=== PATIENT | female | born 1930 | race Caucasian/White ===

== ENCOUNTER 2016-11-06 11:20 | Inpatient (IN) | payer MEDICARE, OTHER ==
[~2016-11-06] VITALS: Ht 167.6 cm; Wt 48.2 kg
[2016-11-06] VITALS (10 sets, daily range): BP systolic 113–200; BP diastolic 62–118; PULSE 68–122; RESP 15–22; TEMP 97.1–99.5; O2SAT 96–100; Ht 167.6 cm; Wt 48.2 kg
--- NOTE | 2016-11-06 11:20 | NUR ---
ADMISSION PT ADMITTED TO ROOM 112 PER CART. TRANSFERRED USING SLIDE BOARD. DIRECT ADMIT FROM [facility]. PT GIAN, HX OF DEMENTIA. IV RIGHT FOREARM. BED ALARM ON. CALL LIGHT WITHIN REACH. WILL CONTINUE TO MONITOR.
--- OUTSIDE RECORDS SUMMARY | 2016-11-06 11:52 | XMS REPORT ---
Author Author [facility]. Organization [facility] Address [address] [place] [address] Phone [phone] Care Team Providers Care Senior Accounts Payable Clerk Name Role Phone SARA ALVARADO MD, PP Unavailable SARA ALVARADO MD, PP Unavailable SARA ALVARADO MD, PP Unavailable Summary purpose CCDA Sent to [facility] Chief Complaint and Reason for Visit No authorized Reason for Visit (Admitting Diagnosis) is available for this visit. Problem list Condition Status Certainty Chronicity Onset .Syncope; Near Syncope Discharged Encounters The following conditions tracked for encounter diagnoses were recorded for this visit: Finding or Diagnosis Status Certainty Chronicity Onset Cardiovascular - Actual/potential for altered Discharged .Syncope; Near Syncope Discharged Medications No medications recorded for this patient visit Allergies, adverse reactions, alerts Allergen Category Ingredient Status Reaction Severity Onset ferrous sulfate Drug ferrous sulfate Active abdominal pain Evista Drug Evista Active abdominal cramps Evista Drug Raloxifene Active abdominal cramps Miacalcin Drug Miacalcin Active muscle cramps Miacalcin Drug Calcitonin Active muscle cramps Mephyton Drug Mephyton Active pain Mephyton Drug phytonadione Active pain Immunizations No immunizations recorded for this patient visit Relevant diagnostic tests and/or laboratory data RESULTS CBC [id number]:25:00 Result Normal Range Units WBC 10.14 4.8-10.8 x103/mm3 Neutrophil % H 75.2 50-70 % Lymph % L 15.1 20-50 % Nye % H 9.1 1.0-9.0 % Eosinophil % 0.4 0-4 % Basophil % 0.2 0-2 % Neutrophil # H 7.63 3.0-7.0 x103/mm3 Lymph # 1.53 1.0-4.0 x103/mm3 Nye # H 0.92 0.0-0.8 x103/mm3 Eosinophil # 0.04 0-0.5 x103/mm3 Basophil # 0.02 0-0.2 x103/mm3 RBC L 4.19 4.20-5.40 x103/mm3 HGB 13.7 12.0-16.0 g/dl HCT 41.2 37.0-47.0 % MCV 98.3 81-99 FL MCH H 32.7 27.0-31.0 pg MCHC 33.3 32.0-36.0 g/dl RDW 13.0 12-15 % Platelet 185 150-400 x103/mm3 MPV H 10.1 6.0-10.0 FL Chemistry Group [id number]:55:00 Result Normal Range Units Digoxin HC 3.3 0.8-2.0 ng/ml CALLED TO BRIAN 10/19/15 07:40 [facility] [place] :25:00 Result Normal Range Units Sodium 135 134-145 mmol/L Potassium 4.8 3.6-5.0 mmol/L Chloride L 97 98-107 mmol/L CO2 H 31 22-30 mmol/L Glucose H 145 75-110 mg/dl BUN H 25 9-20 mg/dl Creatinine 1.00 0.8-1.7 mg/dl Total Protein 6.3 6.3-8.2 g/dl Albumin 3.7 3.5-5.0 g/dl Calcium 9.0 8.4-10.2 mg/dl Alk Phos 60 38-126 U/L AST 26 14-36 U/L ALT 25 11-66 U/L T Bili .7 0.2-1.3 mg/dl A/G Ratio 1.4 Ratio Digoxin HC 3.9 0.8-2.0 ng/ml GIVEN TO MAYKEL AT 10:34 10-18-15 BY BOOGIE [facility] :25:00 Result Normal Range Units TSH 4.56 0.50-6.00 uIU/mL History of procedures No procedures recorded for this patient visit. Functional status Functional Status Finding Observation Time Dexterity Right-handed :18 Weight Bearing Statu Full 28-72-004477:05 Transferring/Ambulat Needs Assistance 31-90-129567:39 Bathing Independent :18 Dressing Independent 98-10-332099:18 Eating Independent 31-12-511802:18 Drinking Independent 68-53-963219:18 Toileting Needs Assistance :18 Able to Turn Self in Independent :18 Cognitive Status Finding Observation Time Level of Consciousne Alert :32 Oriented to Person Yes :[address] Yes :32 Oriented to Time Yes :32 Vital signs Type Value Date Respirations 16 :10 Pulse 93 :10 O2 Saturation 98% :10 Systolic Blood Press 114mm/HG :49 Diastolic Blood Pres 67mm/HG :49 Temperature (Fahr) 97.8Degrees :10 Height 66in :07 Weight 106.7LB :07 Social history Type Value Smoking Status NEVER SMOKER Treatment Plan No treatment plan text is available for this visit. Hospital discharge instructions Diagnosis near syncope Diet Push fluids- aim for a minimum of 2 quarts Activity Level No restrictions - avoid climbing, quick position changes for two weeks Personal Items Retur none received Med Dispensed by Pro none received Flu Vaccine Given Current/Not Needed Follow up with Dr. Kaur Appointment Date and 10-20-15 at [address] Alvarado Appointment Date and 10-26-15 at 0830
--- OUTSIDE RECORDS SUMMARY | 2016-11-06 11:52 | XMS REPORT | Continuity of Care Document ---
Author Author [facility] Organization [facility] Address Unknown Phone Unavailable Allergies Active Description Code Type Severity Reaction Onset Reported/Identified Relationship to Patient Clinical Status Yes amiodarone Drug Allergy N/A N/A Erroneous Yes Calcitonin Drug Allergy N/A N/A Confirmed or Verified Yes ferrous sulfate Drug Allergy N/A N/A Confirmed or Verified Yes phytonadione Drug Allergy N/A N/A Confirmed or Verified Yes Raloxifene Drug Allergy N/A N/A Confirmed or Verified Yes No Known Allergies [id number] Drug Allergy N/A N/A 05/28/2013 Confirmed but inactive Yes amiodarone Drug Allergy N/A Rash 06/08/2013 Yes Evista 5199 Drug Allergy N/A abdominal cramps 06/08/2013 Yes ferrous sulfate 840 Drug Allergy N/A abdominal pain 06/08/2013 Yes Mephyton 8110 Drug Allergy N/A pain 06/08/2013 Yes Miacalcin 68554 Drug Allergy N/A muscle cramps 06/08/2013 Medications Problems Date Dx Coded Attending Type Code Diagnosis Diagnosed By 07/03/2010 D 285.9 ANEMIA NOS 07/03/2010 D 427.31 ATRIAL FIBRILLATION 07/03/2010 D 428.0 CHF NOS 07/03/2010 D 486 PNEUMONIA, ORGANISM NOS 07/03/2010 D 511.9 PLEURAL EFFUSION NOS 07/03/2010 D 530.81 ESOPHAGEAL REFLUX 07/03/2010 D 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 07/03/2010 D 808.8 PELVIC FRACTURE NOS-CLOS 07/03/2010 D 813.83 FX RADIUS W ULNA NOS-CL 07/03/2010 D E884.9 FALL-1 LEVEL TO OTH NEC 07/03/2010 D V45.89 POSTSURGICAL STATUS NEC 07/03/2010 D V54.89 ORTHOPEDIC AFTERCARE NEC 07/03/2010 D V57.1 PHYSICAL THERAPY NEC 08/02/2010 D 285.9 ANEMIA NOS 08/02/2010 D 428.0 CHF NOS 12/03/2010 D 427.31 ATRIAL FIBRILLATION 04/06/2011 D 285.9 ANEMIA NOS 04/06/2011 D 427.31 ATRIAL FIBRILLATION 04/06/2011 D 427.32 ATRIAL FLUTTER 04/06/2011 D 428.0 CHF NOS 04/06/2011 D 428.20 SYSTOLIC HF NOS 04/06/2011 D 530.81 ESOPHAGEAL REFLUX 04/06/2011 D 564.09 CONSTIPATION NEC 04/06/2011 D 707.03 PRESSURE ULCER-LOW BACK 04/06/2011 D 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 04/06/2011 D 786.51 PRECORDIAL PAIN 04/06/2011 D V43.[address] 04/06/2011 D V54.81 JOINT REPL AFTERCARE 04/06/2011 D V57.89 REHABILITATION PROC [facility] [place] 06/05/2011 D 427.31 ATRIAL FIBRILLATION 08/25/2011 D 873.8 OPEN WOUND OF HEAD [facility] [place] 08/25/2011 D 920 CONTUSION FACE/SCALP/NCK 08/25/2011 D E885.9 FALL OTH SLIP-TRIPPING 09/27/2011 D 427.32 ATRIAL FLUTTER 10/05/2011 D 427.31 ATRIAL FIBRILLATION 10/05/2011 D 427.32 ATRIAL FLUTTER 10/05/2011 D 427.9 CARDIAC DYSRHYTHMIA NOS 10/05/2011 D 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 10/05/2011 D 737.30 IDIOPATHIC SCOLIOSIS 10/05/2011 D 781.2 ABNORMALITY OF GAIT 10/05/2011 D 782.0 SKIN SENSATION DISTURB 10/05/2011 D E942.0 ADV EFF CARD RHYTH REGUL 10/05/2011 D V57.1 PHYSICAL THERAPY [facility] [place] 10/07/2011 D 285.9 ANEMIA NOS 10/07/2011 D 427.31 ATRIAL FIBRILLATION 10/07/2011 D 428.0 CHF NOS 11/26/2011 D 427.31 ATRIAL FIBRILLATION 11/26/2011 D 427.9 CARDIAC DYSRHYTHMIA NOS 01/21/2012 D 427.9 CARDIAC DYSRHYTHMIA NOS 02/15/2012 D 427.31 ATRIAL FIBRILLATION 12/01/2012 SARA CHUN MD 427.31 ATRIAL FIBRILLATION 02/01/2013 SARA CHUN MD 110.1 DERMATOPHYTOSIS OF NAIL 02/24/2013 SARA CHUN MD 110.1 DERMATOPHYTOSIS OF NAIL 05/24/2013 SARA CHUN MD 285.9 ANEMIA NOS 05/24/2013 SARA CHUN MD 427.32 ATRIAL FLUTTER 05/28/2013 KEATON LEONE MD, SHIRLEY Dowling 599.0 URIN TRACT INFECTION NOS 06/09/2013 PINO VU MD 285.9 ANEMIA NOS 06/09/2013 PINO VU MD 427.31 ATRIAL FIBRILLATION 06/09/2013 PINO VU MD 427.32 ATRIAL FLUTTER 06/09/2013 PINO VU MD 724.02 SP STENOSIS-LUMB S JOHN 06/09/2013 PINO VU MD 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 06/09/2013 PINO VU MD 780.2 SYNCOPE AND COLLAPSE 06/09/2013 PINO VU MD 786.51 PRECORDIAL PAIN 06/17/2013 KYLE VU MD 427.9 CARDIAC DYSRHYTHMIA NOS 06/17/2013 KYLE VU MD 786.59 CHEST PAIN NEC 06/17/2013 KYLE VU MD E942.1 ADV EFF CARDIOTONICS 06/24/2013 SARA CHUN MD 728.87 MUSCLE WEAKNESS 07/06/2013 SARA CHUN MD 427.32 ATRIAL FLUTTER 09/19/2013 SARA CHUN MD 427.31 ATRIAL FIBRILLATION 09/19/2013 SARA CHUN MD 427.32 ATRIAL FLUTTER 09/19/2013 SARA CHUN MD 530.81 ESOPHAGEAL REFLUX 09/19/2013 SARA CHUN MD 564.00 CONSTIPATION NOS 09/19/2013 SARA CHUN MD 780.2 SYNCOPE AND COLLAPSE 09/19/2013 SARA CHUN MD 810.00 FX CLAVICLE NOS-CLOSED 09/19/2013 SARA CHUN MD 850.5 CONCUSSION W COMA NOS 09/19/2013 SARA CHUN MD 920 CONTUSION FACE/SCALP/NCK 09/19/2013 SARA CHUN MD E888.1 FALL AGAINST OBJECT NEC 09/19/2013 SARA CHUN MD V58.61 ANTICOAGULANT USE LONG T 02/14/2014 SARA CHUN MD R Josey 244.9 HYPOTHYROIDISM NOS 02/14/2014 SARA CHUN MD 427.32 ATRIAL FLUTTER 04/04/2014 KEATON LEONE MD, SHIRLEY Dowling 786.05 SHORTNESS OF BREATH 04/18/2014 SARA CHUN MD R Josey 244.9 HYPOTHYROIDISM NOS 04/18/2014 SARA CHUN MD 427.31 ATRIAL FIBRILLATION 04/18/2014 SARA CHUN MD 427.32 ATRIAL FLUTTER 06/28/2014 SARA CHUN MD 244.9 HYPOTHYROIDISM NOS 10/17/2014 D 244.9 HYPOTHYROIDISM NOS 10/17/2014 D 276.51 DEHYDRATION 10/17/2014 D 427.31 ATRIAL FIBRILLATION 10/17/2014 D 427.32 ATRIAL FLUTTER 10/17/2014 D 428.0 CHF NOS 10/17/2014 D 530.81 ESOPHAGEAL REFLUX 10/17/2014 D 785.0 TACHYCARDIA NOS 10/17/2014 D 786.05 SHORTNESS OF BREATH 12/15/2014 SARA CHUN MD 427.31 ATRIAL FIBRILLATION 12/15/2014 SARA CHUN MD 427.32 ATRIAL FLUTTER 12/15/2014 SARA CHUN MD 428.0 CHF NOS 12/15/2014 SARA CHUN MD 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/15/2014 SARA CHUN MD 780.2 SYNCOPE AND COLLAPSE 12/15/2014 SARA CHUN MD 789.00 ABDOMINAL PAIN, UNSPECIF 10/19/2015 PING MESA MD E03.9 Hypothyroidism, unspecified 10/19/2015 PING MESA MD I48.91 Unspecified atrial fibrillation 10/19/2015 PING MESA MD I48.92 Unspecified atrial flutter 10/19/2015 PING MESA MD R55 Syncope and collapse 10/19/2015 PING MESA MD T46.0X5A Adverse effect of cardi-stim glycos/ drug simlar act, init 10/23/2015 SARA CHUN MD T46.0X5A Adverse effect of cardi-stim glycos/ drug simlar act, init 10/31/2015 SARA CHUN MD I48.2 Chronic atrial fibrillation 02/29/2016 SARA CHUN MD 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, unspecified eye 06/18/2016 SARA CHUN MD I48.2 Chronic atrial fibrillation 08/09/2016 JOSE GILBERT MD F03.90 Unspecified dementia without behavioral disturbance 08/09/2016 JOSE GILBERT MD I48.91 Unspecified atrial fibrillation 08/09/2016 JOSE GILBERT MD R07.9 Chest pain, unspecified 08/09/2016 JOSE GILEBRT MD Z91.81 History of falling 08/09/2016 JOSE GILBERT MD Z95.0 Presence of cardiac pacemaker Procedures Code Description Performed By Performed On 9764 REMOV URIN DRAINAGE SARA WHIPPLE MD 06/21/2010 35067 ASSAY OF DIGOXIN SARA CHUN MD 08/02/2010 71642 COMPLETE CBC, AUTOMATED SARA CHUN MD 08/02/2010 93947 METABOLIC PANEL TOTAL SARA DC MD 12/03/2010 09999 ASSAY OF DIGOXIN SARA CHUN MD 12/03/2010 87975 COMPLETE CBC, AUTOMATED SARA CHUN MD 12/03/2010 9789 REMOV THERAPEUT DEV NEC SARA CHUN MD 04/04/2011 87948 METABOLIC PANEL TOTAL SARA DC MD 06/05/2011 56516 ASSAY OF DIGOXIN SARA CHUN MD 06/05/2011 31029 ASSAY THYROID STIM HORMONE SARA CHUN MD 06/05/2011 47933 COMPLETE CBC, AUTOMATED SARA CHUN MD 06/05/2011 46622 REPAIR SUPERFICIAL WOUND(S) KYLE VU MD 08/25/2011 29619 EMERGENCY DEPT VISIT KYLE VU MD 08/25/2011 18962 EMERGENCY DEPT VISIT KYLE VU MD 08/25/2011 79997 METABOLIC PANEL TOTAL SARA DC MD 09/27/2011 81190 ASSAY OF DIGOXIN SARA CHUN MD R 09/27/2011 11217 METABOLIC PANEL TOTAL CA SARA CHUN MD R 10/07/2011 90015 HEPATIC FUNCTION PANEL SARA CHUN MD 10/07/2011 22850 ASSAY OF DIGOXIN SARA CHUN MD R 10/07/2011 00472 ASSAY THYROID STIM HORMONE SARA CHUN MD R 10/07/2011 09073 METABOLIC PANEL TOTAL CA SARA CHUN MD R 11/26/2011 86418 ASSAY OF DIGOXIN SARA CHUN MD R 11/26/2011 89947 COMPLETE CBC, AUTOMATED SARA CUHN MD R 11/26/2011 66564 METABOLIC PANEL TOTAL CA SARA CHUN MD R 01/21/2012 29655 ASSAY OF DIGOXIN SARA CHUN MD R 01/21/2012 41871 METABOLIC PANEL TOTAL SARA DC MD R 02/15/2012 13397 ASSAY OF DIGOXIN SARA CHUN MD R 02/15/2012 31530 METABOLIC PANEL TOTAL CA SARA CHUN MD R 12/01/2012 66596 ASSAY OF DIGOXIN SARA CHUN MD 12/01/2012 42117 ASSAY THYROID STIM HORMONE SARA CHUN MD R 12/01/2012 08130 COMPLETE CBC, AUTOMATED SARA CHUN MD 12/01/2012 37423 HEPATIC FUNCTION PANEL SARA CHUN MD 02/01/2013 13729 HEPATIC FUNCTION PANEL SARA CHUN MD R 02/24/2013 31541 METABOLIC PANEL TOTAL SARA DC MD R 05/24/2013 08172 ASSAY OF DIGOXIN SARA CHUN MD R 05/24/2013 43642 COMPLETE CBC, AUTOMATED SARA CHUN MD 05/24/2013 94456 ROUTINE VENIPUNCTURE SHIRLEY GILBERT MD 05/28/2013 03774 COMPREHEN METABOLIC PANEL SHIRLEY GILBERT MD 05/28/2013 20812 ASSAY OF DIGOXIN SHIRLEY GILBERT MD 05/28/2013 36970 URINALYSIS, AUTO, W/O SCOPE SHIRLEY GILBERT MD 05/28/2013 96099 COMPLETE CBC, AUTOMATED SHIRLEY GILBERT MD 05/28/2013 17171 PROTHROMBIN TIME KEATON LEONE MD, SHIRLEY Dowling 05/28/2013 67460 ELECTROCARDIOGRAM, TRACING KEATON LEONE MD, SHIRLEY Dowling 05/28/2013 45049 EMERGENCY DEPT VISIT KEATON LEONE MD , SHIRLEY Dowling 05/28/2013 48423 COMPREHEN METABOLIC PANEL LAY VILLA, SARA German 06/08/2013 88273 ASSAY OF TROPONIN, QUANT LAY VILLA, SARA German 06/08/2013 16179 COMPLETE CBC, AUTOMATED LAY VILLA, SARA German 06/08/2013 27826 PROTHROMBIN TIME SARA CHUN MD 06/08/2013 59137 THROMBOPLASTIN TIME, PARTIAL LAY VILLA , SARA German 06/08/2013 73923 ELECTROCARDIOGRAM, TRACING SARA CHUN MD 06/08/2013 42264 EMERGENCY DEPT VISIT SARA CHUN MD 06/08/2013 G0378 HOSPITAL OBSERVATION PER HR SARA CHUN MD 06/08/2013 75260 ASSAY OF TROPONIN, QUANT SARA CHUN MD 06/09/2013 44581 ELECTROCARDIOGRAM, TRACING SARA CHUN MD 06/09/2013 80237 METABOLIC PANEL TOTAL CA SARA CHUN MD 06/17/2013 07417 ASSAY OF DIGOXIN SARA CHUN MD 06/17/2013 59055 NATRIURETIC PEPTIDE SARA CHUN MD 06/17/2013 46498 ASSAY OF TROPONIN, SARA HE MD 06/17/2013 56964 ELECTROCARDIOGRAM, TRACING SARA CHUN MD 06/17/2013 55451 EMERGENCY DEPT VISIT SARA CHUN MD 06/17/2013 G0378 HOSPITAL OBSERVATION PER HR SARA CHUN MD 06/17/2013 11617 PT EVALUATION SARA CHUN MD 06/17/2013 02213 OT EVALUATION SARA CHUN MD 06/17/2013 37.22 LEFT HEART CARDIAC CATH Natasha VILLA, Genaro Moscoso 06/25/2013 88.53 LT HEART ANGIOCARDIOGRAM Natasha VILLA, Genaro Moscoso 06/25/2013 88.56 CORONAR ARTERIOGR-2 CATH Natasha VILLA, Genaro Moscoso 06/25/2013 03500 METABOLIC PANEL TOTAL CA SARA CHUN MD 07/06/2013 90795 ASSAY OF DIGOXIN SARA CHUN MD 07/06/2013 91023 COMPREHEN METABOLIC PANEL SARA CHUN MD 02/14/2014 93358 ASSAY OF DIGOXIN SARA CHUN MD 02/14/2014 67839 ASSAY OF FREE THYROXINE SARA CHUN MD 02/14/2014 67627 ASSAY THYROID STIM HORMONE SARA CHUN MD 02/14/2014 05067 FREE ASSAY (FT-3) SARA CHUN MD 02/14/2014 83178 COMPLETE CBC, AUTOMATED SARA CHUN MD 02/14/2014 62373 COMPREHEN METABOLIC PANEL SHIRLEY GILBERT MD 04/04/2014 81013 ASSAY OF DIGOXIN SHIRLEY GILBETR MD 04/04/2014 98115 COMPLETE CBC, AUTOMATED SHIRLEY GILBERT MD 04/04/2014 71744 ASSAY OF DIGOXIN SARA CHUN MD 04/18/2014 11707 ASSAY THYROID STIM HORMONE SARA CHUN MD 04/18/2014 00827 ASSAY THYROID STIM HORMONE SARA CHUN MD 06/28/2014 61006 COMPREHEN METABOLIC PANEL SARA CHUN MD 10/16/2014 29890 ASSAY OF DIGOXIN SARA CHUN MD 10/16/2014 85049 URINALYSIS, AUTO, W/O SCOPE SARA CHUN MD 10/16/2014 90844 ASSAY THYROID STIM HORMONE SARA CHUN MD 10/16/2014 29219 COMPLETE CBC, AUTOMATED SARA CHUN MD 10/16/2014 50613 URINE CULTURE/COLONY COUNT SARA CHUN MD 10/16/2014 77752 EMERGENCY DEPT VISIT SARA CHUN MD 10/16/2014 G0378 HOSPITAL OBSERVATION PER HR SARA CHUN MD 10/16/2014 J7120 RINGER'S LACTATE INFUSION AGUSTIN FINNEGAN 10/16/2014 58787 ASSAY OF TROPONIN, QUANT SARA CHUN MD 10/17/2014 78129 ROUTINE VENIPUNCTURE SARA CHUN MD 12/15/2014 19155 COMPREHEN METABOLIC PANEL SARA CHUN MD 12/15/2014 70917 COMPLETE CBC, AUTOMATED SARA CHUN MD 12/15/2014 66151 EMERGENCY DEPT VISIT SARA CHUN MD 12/15/2014 39854 CHEST X-RAY SARA CHUN MD 10/18/2015 12754 COMPREHEN METABOLIC PANEL SARA CHUN MD 10/18/2015 21921 ASSAY OF DIGOXIN SARA CHUN MD 10/18/2015 26451 ASSAY THYROID STIM HORMONE SARA CHUN MD 10/18/2015 62586 COMPLETE CBC, AUTOMATED SARA CHUN MD 10/18/2015 49777 ELECTROCARDIOGRAM, TRACING SARA CHUN MD 10/18/2015 20071 HYDRATION IV INFUSION, INIT SARA CHUN MD 10/18/2015 12206 HYDRATE IV INFUSION, ADD-ON SARA CHUN MD 10/18/2015 21543 EMERGENCY DEPT VISIT SARA CHUN MD 10/18/2015 G0378 HOSPITAL OBSERVATION PER HR SARA CHUN MD 10/18/2015 J7120 RINGER'S LACTATE INFUSION BONITA VILLA , PING Dowling 10/18/2015 68847 ASSAY OF DIGOXIN SARA CHUN MD 10/19/2015 99048 ROUTINE VENIPUNCTURE SARA CHUN MD 10/23/2015 01061 ASSAY OF DIGOXIN SARA CHUN MD 10/23/2015 88934 ROUTINE VENIPUNCTURE SARA CHUN MD 10/31/2015 92783 METABOLIC PANEL TOTAL CA SARA CHUN MD 10/31/2015 61746 ASSAY OF DIGOXIN SARA CHUN MD 10/31/2015 32654 COMPLETE CBC, SARA ESCOBAR MD 02/29/2016 61045 RBC SED RATE, SARA ESCOBAR MD 02/29/2016 47637 C-REACTIVE PROTEIN SARA CHUN MD 02/29/2016 23513 METABOLIC PANEL TOTAL SARA DC MD 06/18/2016 81994 ASSAY OF DIGOXIN SARA CHUN MD 06/18/2016 59038 ASSAY OF TROPONIN, QUANT SARA CHUN MD 06/18/2016 01231 COMPLETE CBC, AUTOMATED SARA CHUN MD 06/18/2016 55258 ROUTINE VENIPUNCTURE SARA CHUN MD 08/08/2016 34659 CHEST X-RAY SARA CHUN MD 08/08/2016 61039 COMPREHEN METABOLIC PANEL SARA CHUN MD 08/08/2016 97200 ASSAY OF TROPONIN, QUANT SARA CHUN MD 08/08/2016 21924 COMPLETE CBC, AUTOMATED SARA CHUN MD 08/08/2016 09064 PROTHROMBIN TIME SARA CHUN MD 08/08/2016 48166 ELECTROCARDIOGRAM, TRACING SARA CHUN MD 08/08/2016 99802 EMERGENCY DEPT VISIT SARA CHUN MD 08/08/2016 G0378 HOSPITAL OBSERVATION PER HR SARA CHUN MD 08/08/2016 94060 ASSAY OF TROPONIN, SARA HE MD 08/09/2016 77050 ELECTROCARDIOGRAM, TRACING SARA CHUN MD 08/09/2016 Encounters ACCT No. Visit Date/Time Discharge Status Pt. Type Provider Facility Loc./Unit Complaint [id number] 06/25/2013 06:00:00 2012 06:00:00 DIS Outpatient Natasha VILLA, [facility] [id number] 06/21/2013 05:50:00 2012 10:00:00 DIS Outpatient Natasha VILLA, [facility]
--- OUTSIDE RECORDS SUMMARY | 2016-11-06 11:52 | XMS REPORT ---
Author Author [facility] Organization [facility] Address [address] [place] [address] Phone [phone] Care Team Providers Care Free Lance Model Name Role Phone LAY VILLA, SARA SHETH Unavailable SARA ALVARADO MD, PP Unavailable SARA ALVARADO MD, PP Unavailable Summary purpose CCDA Sent to [facility] Chief Complaint and Reason for Visit Admit Diagnosis 1 CHEST PAIN Problem list Condition Status Certainty Chronicity Onset .Chest pain Discharged Encounters The following conditions tracked for encounter diagnoses were recorded for this visit: Finding or Diagnosis Status Certainty Chronicity Onset .Chest pain Discharged Medications Discharge Medications Status Medication Directions Current acetaminophen (TYLENOL) 500 mg: TABLET 500 MG oral EVERY FOUR HOURS NEEDED for PAIN OR FEVER Current aspirin 325 mg tablet 1 tab(s) oral DAILY Current calcium carbonate-vitamin D3 600 mg calcium-200 unit capsule 1 tab(s ) oral DAILY Current digoxin 250 mcg tablet 125 microgram(s) oral DAILY Current Dulcolax (bisacodyl) 10 mg rectal suppository 1 suppository(ies) rectal rect DAILY NEEDED for constipation Current Fosamax 70 mg tablet 1 tab(s) oral FRIDAY xpath-functions" xmlns:xs="http://www.WP Engineorg/2000/XMLSchema" />weekly on mondays Current ibuprofen 200 mg capsule 200 miligram(s) oral DAILY xpath-functions" xmlns:xs="http://www.[employer].org/2000/XMLSchema" />On Friday, Friday, Friday Current Miralax 17 gram/dose oral powder 17 gram(s) oral DAILY Current nitroglycerin (NITROSTAT) 0.4 mg: TAB SUBL 0.4 MG Sublingual Give SL EVERY FIVE MINUTES NEEDED for CHEST PAIN Current Harris 5 mg-325 mg tablet 0.5 tab(s) oral oral TID NEEDED for pain xpath-functions" xmlns:xs="http://www.w3.org/2001/XMLSchema" />0.5-1 tab Current omeprazole (PRILOSEC): Cap DR 20 MG oral BEFORE BREAKFAST Current Senokot 8.6 mg tablet 1 tab(s) oral BID Current sotalol 80 mg tablet 40 miligram(s) oral TID Current Synthroid 25 mcg tablet 1 tab(s) oral DAILY Current Tums 200 mg calcium (500 mg) chewable tablet 1 tab(s) oral BID Current Vitamin D3 1,000 unit capsule 1 capsule(s) oral DAILY Stopped ferrous gluconate 325 mg (37 mg iron) tablet 1 tab(s) oral DAILY Stopped multivitamin tablet 1 tab(s) oral DAILY Allergies, adverse reactions, alerts Allergen Category Ingredient [...] Relevant diagnostic tests and/or laboratory data RESULTS :30:00 Discharge Summary Patient discharged back to [facility] 44-29-625587:31:33 Discharge Summary Seen in ER and observed overnight for chest pain. Symptoms relieved with NTG x 2. No improvement with GI cocktail. Pt and family declined further cardiac work-up CBC :45:00 Result Normal Range Units WBC 10.29 4.8-10.8 x103/mm3 Neutrophil % 62.2 50-70 % Lymph % 23.4 20-50 % [place] % H 12.7 1.0-9.0 % Eosinophil % 1.5 0-4 % Basophil % 0.2 0-2 % Neutrophil # 6.40 3.0-7.0 x103/mm3 Lymph # 2.41 1.0-4.0 x103/mm3 [place] # H 1.31 0.0-0.8 x103/mm3 Eosinophil # 0.15 0-0.5 x103/mm3 Basophil # 0.02 0-0.2 x103/mm3 RBC L 4.04 4.20-5.40 x103/mm3 HGB 13.2 12.0-16.0 g/dl HCT 40.0 37.0-47.0 % MCV 99.0 81-99 FL MCH H 32.7 27.0-31.0 pg MCHC 33.0 32.0-36.0 g/dl RDW 13.7 12-15 % Platelet 197 150-400 x103/mm3 MPV 9.8 6.0-10.0 FL Chemistry Group :45:00 Result Normal Range Units Sodium 141 134-145 mmol/L Potassium 4.4 3.6-5.0 mmol/L Chloride 101 98-107 mmol/L CO2 H 32 22-30 mmol/L Glucose 99 75-110 mg/dl BUN H 23 9-20 mg/dl Creatinine .94 0.8-1.7 mg/dl eGFR 56 ml/min. Total Protein 6.9 6.3-8.2 g/dl Albumin 3.9 3.5-5.0 g/dl Calcium 9.5 8.4-10.2 mg/dl Alk Phos 67 38-126 U/L AST 32 14-36 U/L ALT 34 11-66 U/L T Bili .7 0.2-1.3 mg/dl A/G Ratio 1.3 Ratio Coagulation Group [id number]:45:00 Result Normal Range Units Protime 10.6 9.5-12.3 Sec INR 1.0 Special Chemistry Group [id number]:00:00 Result Normal Range Units Troponin I < 0.06 ng/ml NEGATIVE - 0.06-0.30 ng/ml INCONCLUSIVE - 0.31-0.64 ng/ml; Suggest Repeating in 2-4 hours POSITIVE - >0.64 ng/ml; Probable AMI :45:00 Result Normal Range Units Troponin I < 0.06 ng/ml NEGATIVE - 0.06-0.30 ng/ml INCONCLUSIVE - 0.31-0.64 ng/ml; Suggest Repeating in 2-4 hours POSITIVE - >0.64 ng/ml; Probable AMI History of procedures Procedure Code Code Type Description Date Performed Performing Physician 15270 CPT-4 ROUTINE VENIPUNCTURE 08-08-2016 SARA ALVARADO 70599 CPT-4 COMPLETE CBC, AUTOMATED 08-08-2016 SARA ALVARADO 41814 CPT-4 PROTHROMBIN TIME 08-08-2016 SARA ALVARADO 85364 CPT-4 ASSAY OF TROPONIN, QUANT 08-08-2016 SARA ALVARADO 62595 CPT-4 COMPREHEN METABOLIC PANEL 08-08-2016 SARA ALVARADO 57672 CPT-4 ELECTROCARDIOGRAM, TRACING 08-08-2016 SARA ALVARADO 40012 CPT-4 CHEST X-RAY 08-08-2016 SARA ALVARADO 08386 CPT-4 ASSAY OF TROPONIN, QUANT 08-09-2016 SARA ALVARADO 77605 CPT-4 ELECTROCARDIOGRAM, TRACING 08-09-2016 SARA ALVARADO 97463 CPT-4 EMERGENCY DEPT VISIT 08-08-2016 SARA ALVARADO G0378 CPT-4 HOSPITAL OBSERVATION PER HR 08-08-2016 SARA ALVARADO Functional status Functional Status Finding Observation Time Dexterity Right-handed 15-32-796615:28 Weight Bearing Statu Full 30-20-752853:40 Bathing Independent :28 Dressing Independent :28 Eating Independent :28 Drinking Independent 56-56-279375:28 Toileting Needs Assistance :28 Able to Turn Self in Independent 91-96-702283:28 Cognitive Status Finding Observation Time Level of Consciousne Alert 64-63-561205:00 Oriented to Person Yes 27-62-106676:[address] Yes 29-06-717802:00 Oriented to Time No :00 Vital signs Type Value Date Respirations 16 90-45-750238:25 Pulse 75 :25 O2 Saturation 98% 73-82-198141:48 Systolic Blood Press 147mm/HG 66-49-961823:25 Diastolic Blood Pres 87mm/HG 47-97-064446:25 Temperature (Fahr) 97.9Degrees 94-29-153461:25 Height 66in 36-82-607831:15 Weight 105.4LB 76-22-714179:15 Social history Type Value Smoking Status NEVER SMOKER Treatment Plan Treatment Plan at Pt pain free the following morning with neg Troponin and no EKG changes. Dismiss xpath-functions" xmlns:xs="http://www.One[employer]3.org/2000/XMLSchema" />back to [facility] with Imdur, Lorazepam and Prilosec added. Hospital discharge instructions Diagnosis Chest pain Diet soft diet following tooth extraction Activity Level as tolerated, may participate in facility activities, may have whirlpool bath, may go out on therapeutic visits with necessary medications, full weight bearing, may use standing orders Personal Items Retur not applicable Flu Vaccine Given Current/Not Needed Pneumonia Vaccine Gi Current/Not Needed Follow up with Dr. Crane Appointment Date and 08/22 @ 1000 Other Instructions minimal assist, soft diet following tooth extraction, follow up appointment with Dr. Alvarado
--- OUTSIDE RECORDS SUMMARY | 2016-11-06 11:52 | XMS REPORT ---
Author Author [facility] Organization [facility] Address [address] [place] [address] Phone [phone] Care Team Providers Care Asphalt Spreader Operator Name Role Phone LAY VILLA, SARA SHETH Unavailable Summary purpose CCDA Sent to [facility] Chief Complaint and Reason for Visit No authorized Reason for Visit (Admitting Diagnosis) is available for this visit. Problem list No authorized problems tracked for continuity of care are available for this visit. Encounters No authorized problems tracked for encounter diagnoses are available for this visit. Medications No medications recorded for this patient [...] diagnostic tests and/or laboratory data RESULTS CBC 31-45-996621:40:00 Result Normal Range Units WBC 9.09 4.8-10.8 x103/mm3 Neutrophil % 63.8 50-70 % Lymph % 23.1 20-50 % [place] % H 11.7 1.0-9.0 % Eosinophil % 1.2 0-4 % Basophil % 0.2 0-2 % Neutrophil # 5.80 3.0-7.0 x103/mm3 Lymph # 2.10 1.0-4.0 x103/mm3 [place] # H 1.06 0.0-0.8 x103/mm3 Eosinophil # 0.11 0-0.5 x103/mm3 Basophil # 0.02 0-0.2 x103/mm3 RBC L 3.99 4.20-5.40 x103/mm3 HGB 13.2 12.0-16.0 g/dl HCT 40.0 37.0-47.0 % MCV H 100.3 81-99 FL MCH H 33.1 27.0-31.0 pg MCHC 33.0 32.0-36.0 g/dl RDW 13.3 12-15 % Platelet 200 150-400 x103/mm3 MPV H 10.2 6.0-10.0 FL Chemistry Group [id number]:00 Result Normal Range Units Sodium 141 134-145 mmol/L Potassium 4.9 3.6-5.0 mmol/L Chloride 101 98-107 mmol/L CO2 H 31 22-30 mmol/L Glucose 99 75-110 mg/dl BUN H 24 9-20 mg/dl Creatinine .91 0.8-1.7 mg/dl eGFR 58 ml/min. Calcium 9.3 8.4-10.2 mg/dl Digoxin 1.0 0.8-2.0 ng/ml Special Chemistry Group [id number]:40:00 Result Normal Range Units Troponin I < 0.06 ng/ml NEGATIVE - 0.06-0.30 ng/ml INCONCLUSIVE - 0.31-0.64 ng/ml; Suggest Repeating in 2-4 hours POSITIVE - >0.64 ng/ml; Probable AMI History of procedures Procedure Code Code Type Description Date Performed Performing Physician 14520 CPT-4 ASSAY OF DIGOXIN 06-18-2016 SARA CHUN 57429 CPT-4 METABOLIC PANEL TOTAL CA 06-18-2016 SARA CHUN 20373 CPT-4 COMPLETE CBC, AUTOMATED 06-18-2016 SARA CHUN 89296 CPT-4 ASSAY OF TROPONIN, QUANT 06-18-2016 SARA CHUN Functional status No functional or cognitive status observations are available for this visit. Vital signs No authorized vital signs are available for this visit. Social history No Social History or smoking status observations were recorded for this visit. ( Unknown if ever smoked.) Treatment Plan No treatment plan text is available for this visit. Hospital discharge instructions No discharge instruction text is available for this visit.
--- OUTSIDE RECORDS SUMMARY | 2016-11-06 11:53 | XMS REPORT ---
Author Author [facility]. Organization [facility] Address [address] [place] [address] Phone [phone] Care Team Providers Care Manufacturing Cost Estimator Name Role Phone LAY VILLA, SARA SHETH Unavailable Summary purpose CCDA Sent to [facility] Chief Complaint and Reason for Visit Admit Diagnosis 1 HYPOTHYROIDISM NOS Problem list No authorized problems tracked for continuity of care are available for this visit. Encounters No authorized problems tracked for encounter diagnoses are available for this visit. Medications No home medications recorded for this patient visit Allergies, [...] Relevant diagnostic tests and/or laboratory data RESULTS Special Chemistry Group [id number]:49:00 Result Normal Range Units TSH 4.78 0.50-6.00 uIU/mL History of procedures Procedure Code Code Type Description Date Performed Performing Physician 62892 CPT-4 ASSAY THYROID STIM HORMONE 06-28-2014 SARA CHUN Functional status No functional or [...]
--- OUTSIDE RECORDS SUMMARY | 2016-11-06 11:53 | XMS REPORT ---
Author Author [facility]. Organization [facility] Address [address] [place] [address] Phone [phone] Care Team Providers Care Industrial Gas Servicer Supervisor Name Role Phone LAY VILLA, SARA SHETH Unavailable Summary purpose CCDA Sent to [facility] Chief Complaint and Reason for Visit No authorized Reason for Visit (Admitting Diagnosis) is available for this visit. Problem list Condition Status Certainty Chronicity Onset .Tachycardia Discharged Encounters The following conditions tracked for encounter diagnoses were recorded for this visit: Finding or Diagnosis Status Certainty Chronicity Onset .Tachycardia Discharged Cardiovascular - Actual/potential for altered Discharged Medications Home Medications Medication Directions Started Status Source digoxin 250 mcg tablet 0.5 tablet oral At bed time Current Fosamax 70 mg tablet 1 tablet oral Weekly xpath-functions" xmlns:xs="http://www.[employer] Sciencesorg/2000/XMLSchema" />on mondays Current ibuprofen 200 mg capsule 1 capsule oral See medication notes xpath-functions" xmlns:xs="http://www.[employer] Sciencesorg/2000/XMLSchema" />On Friday, Friday, Friday Current Tums 200 mg calcium (500 mg) chewable tablet 1 tablet oral 2 times per day Current sotalol 80 mg tablet 40 mg oral 3 times per day Current amiodarone 100 mg tablet 50 mg oral See medication notes xpath-functions" xmlns:xs="http://www.[employer]org/2000/XMLSchema" />Friday, Friday , Friday Current Vitamin D3 1,000 unit capsule 1 capsule oral -Daily Current ferrous sulfate 325 mg (65 mg iron) tablet 1 tablet oral -Daily Current Prilosec 20 mg capsule,delayed release 1 capsule oral At bed time Current Senokot-S 8.6 mg-50 mg tablet 1 tablet oral -Daily Current Multi-Vitamin W/Minerals capsule 1 capsule oral -Daily Current Synthroid 25 mcg tablet 1 tablet oral -Daily Current Zantac 150 mg tablet 1 tablet oral -Daily Current aspirin 325 mg tablet 1 tablet oral -Daily Current Miralax 17 gram/dose oral powder 1 units oral 2 times per day Current [place] 5 mg-325 mg tablet 1/2 tablet oral As Needed Every 8 Hours Current Allergies, adverse reactions, alerts Allergen Category Ingredient [...] Relevant diagnostic tests and/or laboratory data RESULTS 13-62-409612:00:37 Discharge Summary Pt admitted with SOB and tachycardia - noted to have improved clinically. On telemetry, noted to cont with tachycardia, and with a fib, paced mostly at rest , and tachy jamul beats with amb or exertion. Increased sotolol 40 mg to tid. Neg troponin. 88-11-744098:55:00 Discharge Summary Patients discharge instructions and meds reviewed by Patient and , waited for supper before leaving hospital. IV removed catheter intact. IV site was without redness and erythema. Applied 2X2 and wrapped with coban. CBC 86-07-122743:40:00 Result Normal Range Units WBC 9.07 4.8-10.8 x103/mm3 Neutrophil % H 70.5 50-70 % Lymph % L 17.3 20-50 % [place] % H 11.4 1.0-9.0 % Eosinophil % 0.6 0-4 % Basophil % 0.2 0-2 % Neutrophil # 6.40 3.0-7.0 x103/mm3 Lymph # 1.57 1.0-4.0 x103/mm3 [place] # H 1.03 0.0-0.8 x103/mm3 Eosinophil # 0.05 0-0.5 x103/mm3 Basophil # 0.02 0-0.2 x103/mm3 RBC 4.54 4.20-5.40 x103/mm3 HGB 14.9 12.0-16.0 g/dl HCT 45.3 37.0-47.0 % MCV H 99.8 81-99 FL MCH H 32.8 27.0-31.0 pg MCHC 32.9 32.0-36.0 g/dl RDW 12.9 12-15 % Platelet 211 150-400 x103/mm3 MPV 9.9 6.0-10.0 FL Urinalysis :15:00 Result Normal Range Units Site Voided Color Yellow Urine Appearance Clear Specific [place] 1.020 1.005-1.030 pH 7.0 5.0-9.0 Protein AB Trace Negative Glucose AB Trace Negative Ketones AB 1+ Negative Bilirubin AB 1+ Negative Blood AB Trace-intact Negative Nitrite Negative Negative Urobilinogen H 1.0 0.20 mg/dl Leukocyte AB 1+ Negative Chemistry Group :40:00 Result Normal Range Units Sodium 137 134-145 mmol/L Potassium 4.7 3.6-5.0 mmol/L Chloride L 97 98-107 mmol/L CO2 H 31 22-30 mmol/L Glucose 106 75-110 mg/dl BUN H 26 9-20 mg/dl Creatinine 1.2 0.8-1.7 mg/dl Total Protein 7.5 6.3-8.2 g/dl Albumin 4.3 3.5-5.0 g/dl Calcium 9.9 8.4-10.2 mg/dl Alk Phos 62 38-126 U/L AST 27 14-36 U/L ALT 31 11-66 U/L T Bili .6 0.2-1.3 mg/dl A/G Ratio 1.4 Ratio Digoxin 1.9 0.8-2.0 ng/ml Special Chemistry Group :25:00 Result Normal Range Units Troponin I < 0.06 ng/ml NEGATIVE - 0.06-0.30 ng/ml INCONCLUSIVE - 0.31-0.64 ng/ml; Suggest Repeating in 2-4 hours POSITIVE - >0.64 ng/ml; Probable AMI :40:00 Result Normal Range Units TSH 3.48 0.50-6.00 uIU/mL Urinalysis with Microscopic :15:00 Result Normal Range Units Site Voided Color Yellow Urine Appearance Clear Specific [place] 1.020 1.005-1.030 pH 7.0 5.0-9.0 Protein AB Trace Negative Glucose AB Trace Negative Ketones AB 1+ Negative Bilirubin AB 1+ Negative Blood AB Trace-intact Negative Nitrite Negative Negative Urobilinogen H 1.0 0.20 mg/dl Leukocyte AB 1+ Negative History of procedures No procedures recorded for this patient visit. Functional status Functional Status Finding Observation Time Dexterity Right-handed :51 Weight Bearing Statu Full :51 Transferring/Ambulat Independent :51 Bathing Independent :51 Dressing Independent :51 Eating Independent :51 Drinking Independent :51 Toileting Independent :51 Able to Turn Self in Independent :51 Cognitive Status Finding Observation Time Level of Consciousne Alert :45 Oriented to Person Yes :[address] Yes :45 Oriented to Time Yes :45 Vital signs Type Value Date Respirations 18 :55 Pulse 115 :55 O2 Saturation 96% :55 Systolic Blood Press 126mm/HG :55 Diastolic Blood Pres 81mm/HG :55 Temperature (Fahr) 98.0Degrees :55 Height 66in :10 Weight 113.8LB :10 Social history Type Value Smoking Status NEVER SMOKER [facility]. Will increase sotolol as noted to tid. F/U xpath-functions" xmlns:xs="http://www.[employer].org/2001/XMLSchema" />in one week with [facility] - bring BP and pulse record. Call sooner if problems. Hospital discharge instructions No discharge instruction text is available for this visit.
--- OUTSIDE RECORDS SUMMARY | 2016-11-06 11:53 | XMS REPORT ---
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
--- OUTSIDE RECORDS SUMMARY | 2016-11-06 11:53 | XMS REPORT ---
Author Author [facility]. Organization [facility] Address [address] [place] [address] Phone [phone] Care Team Providers Care Remnants Cutter Name Role Phone LAY VILLA, SARA SHETH Unavailable Summary purpose CCDA Sent to [facility] Chief Complaint and Reason for Visit [...] Relevant diagnostic tests and/or laboratory data RESULTS Chemistry Group [id number]:30:00 Result Normal Range Units Digoxin .9 0.8-2.0 ng/ml History of procedures No procedures recorded for this patient visit. Functional status No functional or cognitive status [...]
--- OUTSIDE RECORDS SUMMARY | 2016-11-06 11:53 | XMS REPORT ---
Author Author [facility] Organization [facility] Address [address] [place] [address] Phone [phone] Care Team Providers Care Atm Technician Name Role Phone LAY VILLA, SARA SHETH Unavailable Summary purpose CCDA Sent to [facility] Chief Complaint and Reason for Visit [...] tests and/or laboratory data RESULTS Chemistry Group [id number]:07:00 Result Normal Range Units Sodium 138 134-145 mmol/L Potassium 5.0 3.6-5.0 mmol/L Chloride 99 98-107 mmol/L CO2 30 22-30 mmol/L Glucose H 122 75-110 mg/dl BUN 20 9-20 mg/dl Creatinine 1.16 0.8-1.7 mg/dl Calcium 9.1 8.4-10.2 mg/dl Digoxin .9 0.8-2.0 ng/ml History of procedures [...]
--- OUTSIDE RECORDS SUMMARY | 2016-11-06 11:53 | XMS REPORT ---
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 Assessment Orthostatic hypotension 458.0 Active Problem Atrial fibrillation 427.31 Active 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 Problem Orthostatic hypotension 458.0 Active Problem Sick Sinus Syndrome 427.81 Active Assessment Atrial fibrillation 427.31 Active 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 Problem Hypertension 401.9 Active Medications Medication Code System Code Instructions Start Date End Date Status Dosage Vitamin D3 [facility] [address]-63 1000 UNIT Orally qd [place] [address]-32 Orally qd 1 tab Fosamax [facility] [address]-67 70 MG Orally qwk 1 tab Senokot S [facility] [address]-52 8.6-50 MG Orally qd 2 tab Amiodarone HCl [facility] [address]-54 200 MG Orally MWF 1/2 tab Ferrous Gluconate [facility] [address]23-[address]378 325 (36 Fe) MG Orally qd 1 tab Sotalol HCl [facility] [address]-51 80 MG Orally bid 1/[place] [address]-58 200 MG Orally MWF 1 [place] [address]-84 25 Orally qd [place] [address]-38 500 MG Orally bid 1 tab Aspirin NDC 0 325 oral qd 1 [place] [address]-23 0.25 mg Orally qd 1 tab Procedures Procedure Coding System Code Date Ofc Program PM Dual, Staff CPT-4 22582 Apr 21, 2015 Office Visit, Est Pt., Level 3 CPT-4 43790 Apr 21, 2015 Vital Signs Date/Time: Apr 21, 2015 BMI 17.91 Index Weight 111 lbs Height 66" in Cardiac Monitoring Heart Rate 82 /min Oximetry 98% % Blood Pressure Diastolic 92 mm Hg Blood Pressure Systolic 120 mm Hg Results No Known Results Summary Purpose [employer] Submission
--- OUTSIDE RECORDS SUMMARY | 2016-11-06 11:53 | XMS REPORT ---
Author Author [facility]. Organization [facility] Address [address] [place] [address] Phone [phone] Care Team Providers Care Feather Duster Winder Name Role Phone LAY VILLA, SARA SHETH Unavailable Summary purpose CCDA Sent to [facility] Chief Complaint and Reason for Visit [...] and/or laboratory data RESULTS Special Chemistry Group [id number]:49:00 Result Normal Range Units TSH 4.78 0.50-6.00 uIU/mL History of procedures No procedures [...]
--- OUTSIDE RECORDS SUMMARY | 2016-11-06 11:53 | XMS REPORT ---
Author Author [facility]. Organization [facility] Address [address] [place] [address] Phone [phone] Care Team Providers Care President And Cmo Name Role Phone LAY VILLA, SARA SHETH Unavailable Summary purpose CCDA Sent to [facility] Chief Complaint and Reason for Visit Admit Diagnosis 1 SHORTNESS OF BREATH Problem list Condition Status Certainty Chronicity Onset [...] mg tablet 1 tablet oral Weekly xpath-functions" xmlns:xs="http://www.[employer]/2000/XMLSchema" />on mondays Current ibuprofen 200 mg capsule 1 capsule oral See medication notes xpath-functions" xmlns:xs="http://www.[employer]/2000/XMLSchema" />On Friday, Friday, Friday Current Tums 200 mg calcium (500 mg) chewable tablet 1 tablet oral 2 times per day Current sotalol 80 mg tablet 40 mg oral 3 times per day Current amiodarone 100 mg tablet 50 mg oral See medication notes xpath-functions" xmlns:xs="http://www.Smish.org/2000/XMLSchema" />Friday, Friday , Friday Current Vitamin D3 [...] units oral 2 times per day Current [place] 5 mg-325 mg tablet 1/2 tablet oral [...] Relevant diagnostic tests and/or laboratory data RESULTS :00:37 Discharge Summary Pt admitted with SOB and tachycardia - noted to have improved clinically. On telemetry, noted to cont with tachycardia, and with a fib, paced mostly at rest , and tachy [place] beats with amb or exertion. Increased sotolol 40 mg to tid. Neg troponin. 95-74-642629:55:00 Discharge Summary Patients discharge instructions and meds reviewed by Patient and , waited for supper before leaving hospital. IV removed catheter intact. IV site was without redness and erythema. Applied 2X2 and wrapped with coban. CBC [id number]:40:00 Result Normal Range Units WBC 9.07 4.8-10.8 x103/mm3 Neutrophil % H 70.5 50-70 % Lymph % L 17.3 20-50 % Cooper % H 11.4 1.0-9.0 % Eosinophil % 0.6 0-4 % Basophil % 0.2 0-2 % Neutrophil # 6.40 3.0-7.0 x103/mm3 Lymph # 1.57 1.0-4.0 x103/mm3 Cooper # H 1.03 0.0-0.8 x103/mm3 Eosinophil # [...] Voided Color Yellow Urine Appearance Clear Specific [place] 1.020 1.005-1.030 pH 7.0 5.0-9.0 Protein AB [...] Normal Range Units TSH 3.48 0.50-6.00 uIU/mL Reference Lab Group :15:00 Culture Urine Source: Urine Collected: 10/16/14 15:15 .Site: Received : 10/17/14 12:00 .Order#: [id number] Urine Culture FINAL 10/19/14 08:43 .No growth HERNANDEZ FOR RESULTS: * - NEW RESULT - RESULT WAS MODIFIED AFTER FINAL STATUS SET Urine Culture performed at [facility] Reference Lab, [facility], [place] [address] Transition Assistant Christiano Rudd, DO Urinalysis with Microscopic [id number]:15:00 Result Normal Range Units Site Voided Color Yellow Urine Appearance Clear Specific [place] 1.020 1.005-1.030 pH 7.0 5.0-9.0 Protein AB Trace Negative Glucose AB Trace Negative Ketones AB 1+ Negative Bilirubin AB 1+ Negative Blood AB Trace-intact Negative Nitrite Negative Negative Urobilinogen H 1.0 0.20 mg/dl Leukocyte AB 1+ Negative History of procedures Procedure Code Code Type Description Date Performed Performing Physician 00733 CPT-4 COMPLETE CBC, AUTOMATED 10-16-2014 SARA CHUN 31286 CPT-4 COMPREHEN METABOLIC PANEL 10-16-2014 SARA CHUN 41037 CPT-4 URINALYSIS, AUTO, W/O SCOPE 10-16-2014 SARA CHUN 18689 CPT-4 ASSAY OF DIGOXIN 10-16-2014 SARA CHUN 10693 CPT-4 ASSAY THYROID STIM HORMONE 10-16-2014 SARA CHUN 45450 CPT-4 URINE CULTURE/COLONY COUNT 10-16-2014 SARA CHUN 94758 CPT-4 ASSAY OF TROPONIN, QUANT 10-17-2014 SARA CHUN J7120 CPT-4 RINGER'S LACTATE INFUSION 10-16-2014 AGUSTIN CEDENO 92806 CPT-4 EMERGENCY DEPT VISIT 10-16-2014 SARA CHUN G0378 CPT-4 HOSPITAL OBSERVATION PER HR 10-16-2014 SARA CHUN Functional status Functional Status Finding Observation Time Dexterity Right-handed 98-16-303363:51 Weight Bearing Statu Full 27-15-779149:51 Transferring/Ambulat Independent 34-05-974584:51 Bathing Independent 27-63-406241:51 Dressing Independent 45-16-249986:51 Eating Independent :51 Drinking Independent 99-16-074848:51 Toileting Independent 35-70-455860:51 Able to Turn Self in Independent 24-42-123675:51 Cognitive Status Finding Observation Time Level of Consciousne Alert 28-24-894398:45 Oriented to Person Yes 14-52-029920:[address] Yes 99-50-913028:45 Oriented to Time Yes :45 Vital signs Type Value Date Respirations 18 :55 Pulse 115 :55 O2 Saturation 96% :55 Systolic Blood Press 126mm/HG :55 Diastolic Blood Pres 81mm/HG :55 Temperature (Fahr) 98.0Degrees :55 Height 66in :10 Weight 113.8LB :10 Social history Type Value Smoking Status NEVER SMOKER Treatment Plan Treatment Plan at Dismiss to home - see instructions. Will increase sotolol as noted to tid. F/U xpath-functions" xmlns:xs="http://www.Smish.org/2001/XMLSchema" />in one week with [facility] - bring BP and pulse record. Call sooner if problems. Hospital discharge instructions No discharge instruction text is available for this visit.
--- OUTSIDE RECORDS SUMMARY | 2016-11-06 11:53 | XMS REPORT ---
Author Author [facility] Organization [facility] Address [address] [place] [address] Phone [phone] Care Team Providers Care Shoulder Joiner Name Role Phone LAY VILLA, SARA SHETH Unavailable Summary purpose CCDA Sent to [facility] Chief Complaint and Reason for Visit No [...] diagnostic tests and/or laboratory data RESULTS CBC [id number]:50:00 Result Normal Range Units WBC 7.70 4.8-10.8 x103/mm3 Neutrophil % 59.4 50-70 % Lymph % 25.1 20-50 % Smyth % H 13.2 1.0-9.0 % Eosinophil % 2.2 0-4 % Basophil % 0.1 0-2 % Neutrophil # 4.57 3.0-7.0 x103/mm3 Lymph # 1.93 1.0-4.0 x103/mm3 Smyth # H 1.02 0.0-0.8 x103/mm3 Eosinophil # 0.17 0-0.5 x103/mm3 Basophil # 0.01 0-0.2 x103/mm3 RBC L 4.09 4.20-5.40 x103/mm3 HGB 13.8 12.0-16.0 g/dl HCT 40.9 37.0-47.0 % MCV H 100.0 81-99 FL MCH H 33.7 27.0-31.0 pg MCHC 33.7 32.0-36.0 g/dl RDW 13.1 12-15 % Platelet 173 150-400 x103/mm3 MPV 10.0 6.0-10.0 FL Hematology Group :50:00 Result Normal Range Units Sed Rate (ESR) 2 0-20 MM/hr. Reference Lab Group :50:00 Result Normal Range Units C-Reactive Protein < 0.5 <0.5 mg/dL C-Reactive Protein performed at [facility] Reference Lab, [address] [place] [address] Log Haul Chain Feeder Christiano Rudd DO History of procedures No procedures recorded for [...]
--- OUTSIDE RECORDS SUMMARY | 2016-11-06 11:53 | XMS REPORT ---
Author Author [facility] Organization [facility] Address [address] [place] [address] Phone [phone] Care Team Providers Care Trash Collector Name Role Phone LAY VILLA, SARA SHETH Unavailable Summary purpose CCDA Sent to [facility] Chief Complaint and Reason for Visit Admit Diagnosis 1 SYNCOPE AND COLLAPSE Problem list No authorized problems tracked for [...] diagnostic tests and/or laboratory data RESULTS CBC [id number]:50:00 Result Normal Range Units WBC H 11.29 4.8-10.8 x103/mm3 Neutrophil % H 78.5 50-70 % Lymph % L 12.0 20-50 % Butts % 8.5 1.0-9.0 % Eosinophil % 0.9 0-4 % Basophil % 0.1 0-2 % Neutrophil # H 8.87 3.0-7.0 x103/mm3 Lymph # 1.35 1.0-4.0 x103/mm3 Butts # H 0.96 0.0-0.8 x103/mm3 Eosinophil # 0.10 0-0.5 x103/mm3 Basophil # 0.01 0-0.2 x103/mm3 RBC 4.24 4.20-5.40 x103/mm3 HGB 14.0 12.0-16.0 g/dl HCT 42.3 37.0-47.0 % MCV H 99.8 81-99 FL MCH H 33.0 27.0-31.0 pg MCHC 33.1 32.0-36.0 g/dl RDW 13.3 12-15 % Platelet 209 150-400 x103/mm3 MPV H 10.2 6.0-10.0 FL Chemistry Group [id number]:50:00 Result Normal Range Units Sodium 140 134-145 mmol/L Potassium 4.2 3.6-5.0 mmol/L Chloride 100 98-107 mmol/L CO2 30 22-30 mmol/L Glucose H 117 75-110 mg/dl BUN 19 9-20 mg/dl Creatinine 1.1 0.8-1.7 mg/dl Total Protein 6.7 6.3-8.2 g/dl Albumin 4.0 3.5-5.0 g/dl Calcium 9.3 8.4-10.2 mg/dl Alk Phos 57 38-126 U/L AST 26 14-36 U/L ALT 24 11-66 U/L T Bili .4 0.2-1.3 mg/dl A/G Ratio 1.4 Ratio History of procedures Procedure Code Code Type Description Date Performed Performing Physician 10982 CPT-4 COMPLETE CBC AUTOMATED 12-15-2014 SARA CHUN 54880 CPT-4 COMPREHEN METABOLIC PANEL 12-15-2014 SARA CHUN 91867 CPT-4 ROUTINE VENIPUNCTURE 12-15-2014 SRAA CHUN 01438 CPT-4 EMERGENCY DEPT VISIT 12-15-2014 SARA CHUN Functional status Cognitive Status Finding Observation Time Level of Consciousne Alert 83-92-658379:25 Oriented to Person Yes 52-93-770889:[address] Yes 63-72-370327:25 Oriented to Time Yes 09-26-859092:25 Vital signs Type Value Date Respirations 16 53-58-401170:23 Pulse 72 27-24-677529:23 O2 Saturation 99% 43-10-055316:23 Systolic Blood Press 109mm/HG :23 Diastolic Blood Pres 83mm/HG 32-87-806910:23 Temperature (Fahr) 98.0Degrees 84-06-375552:23 Social history Type Value Smoking Status NEVER SMOKER Treatment Plan No treatment plan text is available for this visit. Hospital discharge instructions No discharge instruction text is available for this visit.
--- OUTSIDE RECORDS SUMMARY | 2016-11-06 11:53 | XMS REPORT ---
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
--- OUTSIDE RECORDS SUMMARY | 2016-11-06 11:53 | XMS REPORT ---
Author Author [facility] Organization [facility] Address [address] [place] [address] Phone [phone] Care Team Providers Care Supervisor Forming Department Name Role Phone SARA CHUN MD, PP Unavailable SARA CHUN MD, PP Unavailable Summary purpose CCDA Sent to [facility] Chief Complaint and Reason for Visit [...] Relevant diagnostic tests and/or laboratory data RESULTS :07:00 Discharge Summary Patient discharged with son to go to [place] History of procedures No procedures recorded for this patient visit. Functional status Functional Status Finding Observation Time Dexterity Right-handed :56 Weight Bearing Statu Full 07-55-590011:20 Bathing Independent :56 Dressing Independent :56 Eating Independent :56 Drinking Independent :56 Toileting Needs Assistance :56 Able to Turn Self in Independent :56 Cognitive Status Finding Observation Time Level of Consciousne Alert :19 Oriented to Person Yes :[address] Yes :19 Oriented to Time No :19 Vital signs Type Value Date Respirations 18 :40 Pulse 88 :01 O2 Saturation 99% :40 Systolic Blood Press 148mm/HG :13 Diastolic Blood Pres 96mm/HG :13 Temperature (Fahr) 97.6Degrees :40 Height 66in :08 Weight 105.5LB :08 Social history Type Value Smoking Status NEVER SMOKER Treatment Plan No treatment plan text is available for this visit. Hospital discharge instructions Diagnosis Dementia, Atrial fib/Atrial flutter Diet Regular Activity Level as tolerated, may participate in facility activities, may have whirlpool bath, may go out on therapeutic visits with necessary medications, full weight bearing status Personal Items Retur medications Flu Vaccine Given Current/Not Needed Pneumonia Vaccine Gi Current/Not Needed Follow up with Dr. Crane Appointment Date and 08/06/16 11:30
--- OUTSIDE RECORDS SUMMARY | 2016-11-06 11:53 | XMS REPORT ---
Author Author [facility]. Organization [facility] Address [address] [place] [address] Phone [phone] Care Team Providers Care Mica Parts Sprayer Name Role Phone LAY VILLA, SARA SHETH Unavailable SARA ALVARADO MD, PP Unavailable SARA ALVARADO MD, PP Unavailable Summary purpose CCDA Sent to [facility] Chief Complaint and Reason for Visit Admit Diagnosis 1 WEAKNESS Problem list Condition Status Certainty Chronicity Onset .Hypertension Discharged Encounters The following conditions tracked for encounter diagnoses were recorded for this visit: Finding or Diagnosis Status Certainty Chronicity Onset .Hypertension Discharged Medications Discharge Medications Status Medication Directions Current acetaminophen (TYLENOL) 325 mg: TABLET 650 MG oral HS Current ASPIRIN 325 mg: Tab DR 325 MG oral BID NEEDED for PAIN Current ASPIRIN 325 mg: Tab DR 325 MG oral DAILY Current bisacodyl (DULCOLAX) 10 mg: SUPP. 10 MG rectal Give RECT DAILY NEEDED for CONSTIPATION Current calcium carbonate (TUMS) 200 mg calcium (500 mg): TAB CHEW 1 TAB oral BID Current carboxymethylcellulose sodium (REFRESH TEARS) 0.5 %: DROPS 2 drop(s) ophthalmic Give EyeBoth NEEDED for DRY EYES Current cholecalciferol (vitamin D3) (VITAMIN D): TABLET 1000 UNIT oral DAILY Current digoxin (LANOXIN) 125 mcg: TABLET 125 MCG oral DAILY Current diphenhydrAMINE HCl (BENADRYL) 25 mg: capsule 25 MG oral HS Current HYDROcodone-acetaminophen (HYDROCONE/APAP) 5-325 mg: TABLET 0.5-1 TAB oral TID NEEDED for PAIN Current ibuprofen (MOTRIN) 200 mg: TABLET 200 MG oral DAILY AT NOON Current isosorbide mononitrate (ISMO) 30 mg: ER 24HR Tab 30 MG oral DAILY Current lanolin ssyzsqw-uo-v.pet-ceres (EUCERIN CREAM): CREAM 1 APPLIC topical Give TOP TID Current levothyroxine (SYNTHROID) 25 mcg: TABLET 25 MCG oral BEFORE BREAKFAST Current LORazepam (ATIVAN) 0.5 mg: TABLET 0.5 MG oral EVERY SIX HOURS NEEDED for AGITATION Current MELATONIN 3 mg: TABLET 3 MG oral HS Current mirtazapine (REMERON): TABLET 15 MG oral HS Current omeprazole (PRILOSEC): Cap DR 20 MG oral BEFORE BREAKFAST Current polyethylene glycol 3350 (MIRALAX) 17 gram: POWD PACK 8.5 GM oral EVERY MORNING Current sennosides-docusate sodium (SENOKOT-S) 8.6-50 mg: TABLET 1 TAB oral BID Current sotalol (BETAPACE) 80 mg: TABLET 40 MG oral TID Current traZODone (DESYREL) 50 mg: TABLET 50 MG oral HS Allergies, adverse reactions, alerts Allergen Category Ingredient Status Reaction Severity Onset ferrous sulfate Drug ferrous sulfate Active abdominal pain Evista Drug Evista Active abdominal cramps Evista Drug Raloxifene Active abdominal cramps Miacalcin Drug Miacalcin Active muscle cramps Miacalcin Drug Calcitonin Active muscle cramps Mephyton Drug Mephyton Active pain Mephyton Drug phytonadione Active pain amoxicillin Drug amoxicillin Active Immunizations No immunizations recorded for this patient visit Relevant diagnostic tests and/or laboratory data RESULTS :23:40 Discharge Summary Pt admitted with TIA. Sx resolved. Pt with agitation and confusion, but with no facial asymmetry or weakness noted. Family opts to give conservative care, declines CT head, carotid studies or echo due to pt's advancing dementia. Also declines Coumadin due to fall risk. :18:00 Discharge Summary pt here with weakness and htn CBC :20:00 Result Normal Range Units WBC 6.91 4.8-10.8 x103/mm3 Neutrophil % 64.4 50-70 % Lymph % 22.7 20-50 % Mccreary % H 11.6 1.0-9.0 % Eosinophil % 1.2 0-4 % Basophil % 0.1 0-2 % Neutrophil # 4.45 3.0-7.0 x103/mm3 Lymph # 1.57 1.0-4.0 x103/mm3 Mccreary # 0.80 0.0-0.8 x103/mm3 Eosinophil # 0.08 0-0.5 x103/mm3 Basophil # 0.01 0-0.2 x103/mm3 RBC L 4.13 4.20-5.40 x103/mm3 HGB 13.7 12.0-16.0 g/dl HCT 41.9 37.0-47.0 % MCV H 101.5 81-99 FL MCH H 33.2 27.0-31.0 pg MCHC 32.7 32.0-36.0 g/dl RDW 13.7 12-15 % Platelet 174 150-400 x103/mm3 MPV 9.7 6.0-10.0 FL Urinalysis :04:00 Result Normal Range Units Site VOID Color Lt Yellow Urine Appearance Clear Specific [place] 1.015 1.005-1.030 pH 7.5 5.0-9.0 Protein Negative Negative Glucose Negative Negative Ketones Negative Negative Bilirubin Negative Negative Blood AB Trace-inta Negative Nitrite Negative Negative Urobilinogen 0.2 0.20 mg/dl Leukocyte Negative Negative Chemistry Group :20:00 Result Normal Range Units Sodium 143 134-145 mmol/L Potassium 4.3 3.6-5.0 mmol/L Chloride 98 98-107 mmol/L CO2 H 33 22-30 mmol/L Glucose 97 75-110 mg/dl BUN H 24 9-20 mg/dl Creatinine .93 0.8-1.7 mg/dl eGFR 57 ml/min. Total Protein 7.3 6.3-8.2 g/dl Albumin 4.4 3.5-5.0 g/dl Calcium 9.4 8.4-10.2 mg/dl Alk Phos 58 38-126 U/L AST H 40 14-36 U/L ALT 31 11-66 U/L T Bili .7 0.2-1.3 mg/dl A/G Ratio 1.5 Ratio Special Chemistry Group :20:00 Result Normal Range Units Troponin I < 0.06 ng/ml NEGATIVE - 0.06-0.30 ng/ml INCONCLUSIVE - 0.31-0.64 ng/ml; Suggest Repeating in 2-4 hours POSITIVE - >0.64 ng/ml; Probable AMI Urinalysis with Microscopic :04:00 Result Normal Range Units Site VOID Color Lt Yellow Urine Appearance Clear Specific [place] 1.015 1.005-1.030 pH 7.5 5.0-9.0 Protein Negative Negative Glucose Negative Negative Ketones Negative Negative Bilirubin Negative Negative Blood AB Trace-inta Negative Nitrite Negative Negative Urobilinogen 0.2 0.20 mg/dl Leukocyte Negative Negative History of procedures No procedures recorded for this patient visit. Functional status Functional Status Finding Observation Time Dexterity Right-handed :58 Weight Bearing Statu Full 29-42-633887:01 Bathing Independent :58 Dressing Independent :58 Eating Independent :58 Drinking Independent :58 Toileting Needs Assistance :58 Able to Turn Self in Independent :58 Cane Yes :58 Walker Yes :58 Cognitive Status Finding Observation Time Level of Consciousne Confused :56 Oriented to Person Yes :[address] No :56 Oriented to Time No :56 Vital signs Type Value Date Respirations 20 :35 Pulse 77 :35 O2 Saturation 99% :35 Systolic Blood Press 149mm/HG :35 Diastolic Blood Pres 83mm/HG :35 Temperature (Fahr) 97.6Degrees :35 Height 66in :21 Weight 101.7LB :21 Social history Type Value Smoking Status NEVER SMOKER Treatment Plan Treatment Plan at Dismiss back to [place] - see orders. Add prn prinivil for SBP > 180, and increase xpath-functions" xmlns:xs="http://www.[employer].org/2000/XMLSchema" />remeron in 2 wks. Hospital discharge instructions Diet Regular with small portions per resident request Activity Level As tolerated Flu Vaccine Given Current/Not Needed Follow up with Dr Alvarado Appointment Date and See Comments xpath-functions" xmlns:xs="http://www.[employer].org/2000/XMLSchema" /> xpath-functions" xmlns:xs="http://www.[employer].org/2001/XMLSchema" />Comment: at next nh visit day Other Instructions push fluids - a minimum of six glasses per day (48 ounces) . Nutritional juice drink tid (200 maricurz) between meals.
[2016-11-06] MEDS ORDERED: ONDANSETRON 4mg/2ml INJECTION IV PRN (12:00)
--- NOTE | 2016-11-06 12:23 | DI ---
Indication: ITS.REASON: Preop Procedure: CHEST 1 VIEW: Encounter: Initial Comparison: None Technique: A single portable AP chest radiograph was obtained. Findings: Evaluation somewhat limited by suboptimal positioning/patient rotation. Life support devices: Left pectoral dual-chamber pacer device in place. Lungs and airways: Normal lung volumes. No focal airspace consolidation. Normal pulmonary vasculature. Pleura: No pleural effusion or pneumothorax. Heart and mediastinum: Cardiomegaly. Aortic atherosclerosis. Osseous structures and soft tissues: Multilevel vertebroplasty. Degenerative arthrosis of the shoulders. Impression: No acute cardiopulmonary process appreciated. .
[2016-11-06] MEDS: MORPHINE SULFATE 2 MG SYRINGE IV PRN ×2 (12:36→23:26)
[2016-11-06] MEDS: NORMAL SALINE 1,000 ML IV SCH (12:36)
[2016-11-06 12:37] LABS: HGB - HEMOGLOBIN 13.9 GM/DL (12-16); MEAN CORPUSCULAR HGB 33.9 UUG (26-34); MEAN CORPUSCULAR HGB CONC(MCHC 33.9 GM/DL (31-37); RED BLOOD COUNT 4.1 M/MM3 (4.00-5.20); WBC - WHITE BLOOD COUNT 12.2 T/MM3 (4.5-11.0)
--- NOTE | 2016-11-06 12:46 | DI ---
Indication: ITS.REASON: evaluate hip fracture Procedure: PELVIS W/1 VIEW RT HIP: Encounter: Subsequent Comparison: Right hip radiographs of the same day Technique: Two views of the pelvis and right hip were obtained Findings: Evaluation mildly limited by patient rotation. Generalized osteopenia. Postoperative changes of left total hip arthroplasty. The hardware components appear appropriately aligned. There is an acute basicervical/intertrochanteric fracture of the right femoral neck. There is mild angulation/foreshortening. 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 No focal radiographically apparent soft tissue abnormality. Impression: 1. Acute basicervical/intertrochanteric fracture of the right femoral neck with mild angulation/foreshortening. 2. Postoperative changes of left total hip arthroplasty. 3. 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 .
[2016-11-06 12:48] LABS: ALBUMIN 4.3 G/DL (3.5-5.0); ALBUMIN/GLOBULIN RATIO 1.5 RATIO (1.1-2.2); ALKALINE PHOSPHATASE 58 U/L (38-126); ALT (SGPT) 31 U/L (9-52); ANION GAP 8 MEQ/L (5-15); AST (SGOT) 30 U/L (14-36); BUN/CREATININE RATIO 30 RATIO (6-26); CALCIUM 9.5 MG/DL (8.4-10.2); CHLORIDE 103 MEQ/L (98-107); CO2 - CARBON DIOXIDE 34 MEQ/L (22-30); CREATININE 0.9 MG/DL (0.7-1.2); GLOMERULAR FILTRATION RATE 59; GLUCOSE 111 MG/DL (65-110); POTASSIUM 4.5 MEQ/L (3.6-5); SODIUM 145 MEQ/L (134-144); TOTAL PROTEIN 7.2 G/DL (6.3-8.2)
--- NOTE | 2016-11-06 12:54 | CONSPD ---
Consultation Info Date DATE: 11/06/16 TIME: 12:10 Attending Physician Stuart Junior MD Reason for Consultation: Right hip femoral neck fracture Impression/Recommendation Impression/Recommendation: (1) Fracture of hip, right, closed Status: Acute Qualifiers: Encounter type: initial encounter Qualified Codes: S72.001A - Fracture of unspecified part of neck of right femur, initial encounter for closed fracture Recommendation: Femoral neck fracture. Recommendation: Right hip endoprosthesis Risks and benefits of the recommended procedure were discussed with the patient and/or patient's legal employee representative. They include: infection, nerve damage, artery damage, stroke, IN, PE, DVT, ileus, continued pain, or risk that the injury may not heal despite surgery. There are also medical risks of anesthesia. Risks are not limited to the above mentioned alone. Ortho HPI HPI Elements Location: FOUND hip (right) Injury: Yes (fall at [facility] in her bathroom on 11/06/16) Pain: FOUND stabbing, FOUND sharp Onset: Sudden Radiating: No Severity: FOUND moderate Duration: FOUND 12-24 hours Previous Surgery: No Previous Injury: No Aggrevated by: FOUND all activity Associated Symptoms: FOUND weakness, FOUND swelling, FOUND sensation of giving way Treatments Tried: FOUND pain medications, FOUND rest, FOUND Tylenol X-ray Findings: FOUND femoral neck fracture (right) Recommendation: FOUND FHR HPI This is an 86 year old female who lives in fpc in [facility]. She fell while in the bathroom resulting in right hip pain and deformity. She was transferred to [facility] and evaluated by Dr. Thania Alvarado with X-ray revealing a hip fracture. Dr. Alvarado spoke with Maykel No PA-C traffic control officer for orthopaedics and arrangements were made for the hospitalist to admit with orthopaedics consulting to provide definitive surgical care. The X-rays, which were sent by disk are sub optimal, but appear to show a right femoral neck fracture. New films have been ordered for further evaluation. Her pain is presently located in the right hip, worse with movement better with rest and IV narcotics. Dr. Junior's plan is to take her to surgery tomorrow (11/07/16). Mrs. Sun's recent medical history is significant for osteoporosis, chronic A-fib with a pacemaker. Dr. Alvarado and family have anticoagulated only with ASA 325mg PO Q Day secondary to her being a high fall risk. She had a TIA on 11/03/16 with "a marked hypertensive response" with no residual effects according to Dr. Alvarado. Review of Systems Constitutional: DENIES: chills, fever Cardiovascular DENIES: chest pain Rhythm/Rate: irregular beat (A-fib) Vascular: DENIES: pallor of an extremity Pulmonary Respiratory: DENIES: cough, dyspnea GI Upper Abdomen: DENIES: pain Lower Abdomen: DENIES: pain General: DENIES: dysuria, frequency Musculoskeletal General: joint pain (right hip), pain, tenderness Comments chronic back pain with known previous compression fractures to T9, T12 (Mar 2009 ). Integumentary Skin: DENIES: rash Neurological General: memory disturbances (dementia), weakness, DENIES: numbness Comments confusion and recent TIA Endocrine other (Neg for DM) Past Medical History Adult Past Medical History Patient History: (1) Wrist fracture, right Permanent Comment: Last Edited By: Maykel No on Nov 06, 2016 12: 37 (2) Atrial fibrillation (3) S/p left hip fracture Permanent Comment: Last Edited By: Maykel No on Nov 06, 2016 12:38 (4) H/O: compression fracture of spine Permanent Comment: T9, T12 Kyphoplasty by Dr. Morgan Last Edited By: Maykel No on Nov 06, 2016 12:38 (5) Fracture of hip, right, closed (6) Hx-TIA (transient ischemic attack) Problem List Updates Labile hypertension, facial weakness, CRISTAL, dry skin, unspecified visual dstubance, dementia, ischemic optic neuropathy, near, syncope, acquired kyphosis, tachycardia NOS, hypothyroidism, Toe oncyomycosis, spinal stnosis lumbar, constipation, cardiac arrhythmia, Raynauds, Gallbladder calculi without obstruction, polymyalgia rheumatica, GERD, CHF, anemia, A-fib/ A-flutter, Hypercholestrolemia, osteoporosis, chest discomfort. Surgical History Patient's Surgical History: breast biopsies 1969 (benign), right cataract removal, D&C 1969, 1988; varicose vein stripping; nasal septum repair; pacemaker implantation; right retinal surgery, right eye buckle repair, kyphoplasty T9, T12, T8, L3 Allergies Allergies: Coded Allergies: Amoxicillin (Verified Adverse Reaction, diarrhea , 11/06/16) Evista (Verified Adverse Reaction, abdominal cramps, 11/06/16) Ferrous Sulfate (Verified Adverse Reaction, abdominal pain, 11/06/16) Miacalcin (Verified Adverse Reaction, muscle cramps, 11/06/16) Uncoded Allergies: Amiodarone HCL (Adverse Reaction, incoordination, rash, 11/06/16) Vitamin K (Adverse Reaction, pain, 11/06/16) Family History Family History: breast cancer mother and sister; father 70, of [place] mother 89 had breast cancer (non metastatic) Vaccines Social History Smoking Status: Never smoker Does patient use chewing tobac: No Advance Directives: Yes DPOA for Healthcare Only (ZONIA SUN) Social History Comments of Dr. Elvira Sun MD Physical Exam General General: well nourished, well developed, no acute distress Respiratory FOUND non-labored Cardiovascular FOUND pedal pulses intact Capillary Refill: <2 sec Abdomen Abdominal: FOUND soft Musculoskeletal Musculoskeletal Brief: FOUND: deformity (right hip shortened and extrenally rotated), tenderness Integumentary FOUND dry, FOUND pink, FOUND warm, NOT FOUND rash Neurologic FOUND intact to light touch, FOUND no deficits Psychiatric FOUND normal affect Psychiatric Comments dementia MAYKEL NO Nov 06, 2016 12:14
[2016-11-06 13:05] LABS: INR 1.05 (0.76-1.04); PROTHROMBIN TIME 11.4 SEC (9.31-12.49)
[2016-11-06] MEDS ORDERED: NOZIN NASAL SWAB NS PRN (13:15)
[2016-11-06] MEDS ORDERED: PRN ORDERS MC (13:30)
[2016-11-06] MEDS ORDERED: MILK OF MAGNESIA 30 ML SUSP PO PRN (13:30)
[2016-11-06] MEDS ORDERED: ACETAMINOPHEN 325 MG TABLET PO PRN (13:30)
[2016-11-06] MEDS ORDERED: MAG-AL + SIM LIQUID 30 ML UDC PO PRN (13:30)
[2016-11-06] MEDS ORDERED: ACETAMINOPHEN 325 MG SUPPOSITORY RECTALLY PRN (13:30)
[2016-11-06] MEDS ORDERED: NITROGLYCERIN 0.4 MG SUBLINGUAL TABLET SL PRN (13:30)
[2016-11-06] MEDS ORDERED: BISACODYL 10 MG SUPPOSITORY RECTALLY PRN (13:30)
[2016-11-06] MEDS ORDERED: SOTA80TA PO ×2 (13:53→16:03)
[2016-11-06] MEDS ORDERED: SENN-9 PO (13:54)
--- NOTE | 2016-11-06 14:29 | HPPDOC ---
CHARITO IBARRA V PUBLIC INFORMATION RELATIONS MANAGER 11/06/16 1424: HPI - Adult Date DATE: 11/06/16 TIME: 14:15 General Chief Complaint: Fall, Right hip fracture History of Present Illness Patient is an 86-year-old female who resides at [facility] in [place], [place]. Unfortunately, patient fell in the bathroom and was found to have a right hip fracture. She was taken to [facility] where she was admitted under her primary care provider. Dr. Thania Alvarado. She was then transferred to [facility] today for further orthopedic evaluation and treatment. She is admitted under the hospitalist services for medical evaluation. Patient is seen on initial examination. She is sleeping and does not arouse. Entire history, present illness information is obtained from her son at the bedside. It is reported by patient's son that patient likely had a "TIA" last week. During this time. She was hypertensive 220/120. She experienced some right -sided facial drooping with right upper extremity weakness. However, the symptoms resolved on their own. We did discuss advanced directives and son, Don does emphasize patient is a do not resuscitate. They do not want any aggressive treatment done during her hospital stay. Admission labs reviewed, WBC count 12.2, hemoglobin 13.9, hematocrit 41, platelet count 166. Sodium is 145, potassium 4.5, BUN 27, creatinine 0.9, glucose 111. INR 1.05. Urinalysis is pending. Initial blood pressure on arrival was 200/118 and initial pulse was 117. At this time. Patient was significantly anxious. Now that she is resting her heart rate is 105. Son does indicate the patient did not receive her morning beta diane or other medications. Past Medical History Past Medical History Recent TIA-11/03/16 Hypertension Anxiety Dementia Kyphosis Hypothyroidism Spinal stenosis Constipation Atrial fibrillation GERD per cholesterolemia Osteoporosis Ppolymyalgia rheumatica Anemia Congestive heart failure Surgical History Patient's Surgical History: breast biopsies 1969 (benign) right cataract removal D&C 1969, 1988 varicose vein stripping nasal septum repair pacemaker implantation right retinal surgery right eye buckle repair kyphoplasty T9, T12, T8, L3 Current Medications Home Meds Reported Medications Menthol/Colloidal Oatmeal (Eucerin Calm Itch-Relief Lot) 200 Ml Lotion, 1 ML TOP Y for NEEDED 11/06/16 Lisinopril (Prinivil) 20 Mg Tablet, 20 MG PO PRN Y for HYPERTENSION, TAB 11/06/16 Sotalol HCl (Sotalol) 80 Mg Tablet, 0.5 TAB PO DAILY Y for NEEDED, #60 TAB 5 Refills 11/06/16 Aspirin (Aspirin) 325 Mg Tablet, 1 TAB PO BID, #30 TAB 3 Refills 11/06/16 Lorazepam (Lorazepam) 0.5 Mg Tablet, 0.5 MG PO Q4HPRN Y for ANXIETY, TAB 11/06/16 Bisacodyl (Dulcolax) 10 Mg Supp.rect, 1 SUPP RECTALLY PRN Y for STOOL SOFTENING 11/06/16 Hydrocodone/Acetaminophen (Phoenix 5-325 Tablet) 5-325 Tablet, 0.5-1 TAB PO TID PRN, TAB 11/06/16 Mirtazapine (Remeron) 30 Mg Tablet, 30 MG PO HS, TAB Take 1 tablet, by mouth, one time a day (at bedtime). 11/06/16 Diphenhydramine HCl (Benadryl) 25 Mg Capsule, 1 CAP PO HS, #30 CAP 1 Refill 11/06/16 Acetaminophen (Tylenol) 325 Mg Tablet, 2 TAB PO HS Y for PAIN/FEVER, TAB 11/06/16 Omeprazole Magnesium (Prilosec Otc) 20 Mg Tablet.dr, 1 TAB PO HS for ACID REFLUX , TAB 11/06/16 Melatonin (Melatonin) 3 Mg Tablet, 1 TAB PO HS, #30 TAB 2 Refills 11/06/16 Melatonin (Melatonin) 3 Mg Tablet, 1 TAB PO HS, #30 TAB 2 Refills 11/06/16 Trazodone HCl (Trazodone HCl) 50 Mg Tablet, 50 MG PO WS, TAB Take 1 tablet, by mouth, one time a day (at BEDTIME). 11/06/16 Isosorbide Mononitrate (Isosorbide Mononitrate ER) 30 Mg Tab.er.24h, 1 TAB PO DAILY, TAB 11/06/16 Polyethylene Glycol 3350 (Miralax) 17 Gm Powd.pack, 1 PACKET PO DAILY, #2 PACKET 1 Refill 11/06/16 Calcium Carbonate/Vitamin D3 (Caltrate 600 + D Tablet) 1 Each Tablet, 1 TAB PO DAILY 11/06/16 Aspirin (Aspirin) 325 Mg Tablet, 1 TAB PO DAILY 11/06/16 Calcium Carbonate (Tums) 200 Mg Tab.chew, 1 TAB PO BID 11/06/16 Levothyroxine Sodium (Synthroid) 25 Mcg Tablet, 1 TAB PO ACB, TAB BEST IF TAKEN BEFORE BREAKFAST 11/06/16 Digoxin (Digox) 125 Mcg Tablet, 1 TAB PO DAILY, TAB 11/06/16 Ibuprofen (Ibuprofen) 200 Mg Tablet, 1 TAB PO NOON, TAB 11/06/16 Cholecalciferol (Vitamin D3) (Vitamin D-3) 2,000 Unit Tablet, 1000 UNIT PO DAILY 11/06/16 Sennosides/Docusate Sodium (Senokot-S Tablet) 1 Each Tablet, 1 TAB PO BID, TAB Take 1 tablet, by mouth, 2 times a day. 11/06/16 Sotalol HCl (Sotalol) 80 Mg Tablet, 40 MG PO TID, TAB Take 1 tablet, by mouth, 2 times a day (before meals). 11/06/16 Allergies: Coded Allergies: amoxicillin (Verified Adverse Reaction, Unknown, diarrhea , 11/06/16) calcitonin (Verified Adverse Reaction, Unknown, muscle cramps, 11/06/16) ferrous sulfate (Verified Adverse Reaction, Unknown, abdominal pain, ) raloxifene (Verified Adverse Reaction, Unknown, abdominal cramps, 11/06/16) Uncoded Allergies: Amiodarone HCL (Adverse Reaction, Unknown, incoordination, rash, 11/06/16) Vitamin K (Adverse Reaction, Unknown, pain, 11/06/16) Family History Family History: Mother, sister-breast cancer father 70, of [place] Social History Smoking Status: Never smoker Does patient use chewing tobac: No Substance Use Type: does not use Alcohol Intake: none Marital Status: Sexuality: male partner Housing: custodial ([facility]) Advance Directives: Yes DNR, Yes [facility]POA for Healthcare Only [facility] Social History Comments Primary care provider Dr Thania Alvarado Physical Exam General General Nourishment: well nourished, well developed, thin Vital Signs Vital Signs Date Time Temp Pulse Resp B/P Pulse Ox O2 Delivery O2 Flow Rate FiO2 11/06/16 13:36 16 11/06/16 11:35 150/104 11/06/16 11:30 99.2 117 100 Nasal Cannula 2.00 Height (Feet): 5 Height (Inches): 6.00 Respiratory Brief: FOUND: clear all flores (diminished) Cardiovascular (brief) Cardiac Brief: FOUND: regular rate (mildly tachycardic), regular rhythm Abdomen (brief) Abdominal Brief: FOUND: BS normo active x4, soft Integumentary (brief) Integumentary Brief: FOUND: dry, pink, warm Neurologic RN Documented GCS Eye Opening: Verbal: Motor: Total: Laboratory Laboratory Tests Test 11/06/16 00:00 11/06/16 12:10 White Blood Count 12.2T/MM3 Red Blood Count 4.10M/MM3 Hemoglobin 13.9GM/DL Hematocrit 41.0% Mean Corpuscular Volume 100.0UM3 Mean Corpuscular Hemoglobin 33.9UUG Mean Corpuscular Hemoglobin Concent 33.9GM/DL RDW Standard Deviation 51.7FL Platelet Count 166T/MM3 Mean Platelet Volume 10.0UM3 Prothromb Time International Ratio 1.05 Turbidity < 20 Sodium Level 145MEQ/L Potassium Level 4.5MEQ/L Chloride Level 103MEQ/L Carbon Dioxide Level 34MEQ/L Anion Gap 8MEQ/L Blood Urea Nitrogen 27.0MG/DL Creatinine 0.9MG/DL Glomerular Filtration Rate Calc 59 BUN/Creatinine Ratio 30RATIO Glucose Level 111MG/DL Calculated Osmolality 285MOSM/KG Calcium Level 9.5MG/DL Total Bilirubin 0.80MG/DL Icterus Index < 2 Aspartate Amino Transf (AST/SGOT) 30U/L Alanine Aminotransferase (ALT/SGPT) 31U/L Alkaline Phosphatase 58U/L Total Protein 7.2G/DL Albumin 4.3G/DL Globulin 2.9G/DL Albumin/Globulin Ratio 1.5RATIO Chemistry Specimen Hemolysis < 15 Assessment & Plan Problems: (1) Hip fracture, right Status: Acute Qualifiers: Encounter type: initial encounter Fracture type: closed Qualified Codes: S72.001A - Fracture of unspecified part of neck of right femur, initial encounter for closed fracture (2) Atrial fibrillation Status: Chronic (3) Hypertension Status: Chronic (4) Anxiety Status: Chronic (5) Congestive heart failure (6) Constipation Status: Chronic (7) Hypothyroidism Status: Chronic (8) Spinal stenosis Status: Chronic (9) Dementia Status: Chronic (10) Raynauds syndrome (11) Kyphosis Status: Chronic (12) Scoliosis Status: Chronic (13) Pacemaker Status: Chronic (14) Anemia Status: Chronic (15) Hx-TIA (transient ischemic attack) Status: Chronic (16) H/O: compression fracture of spine Status: Resolved Plan/Intensity of Service Admit patient to inpatient status under the care of Dr. Aviles Orthopedic consultation to Dr. Junior for further recommendations and treatment, at this point, we are planning for surgery tomorrow . 11/07 Did review admission laboratory studies WBC count is slightly up at 12.2 and hemoglobin is stable at 13.9. Patient was hypertensive and tachycardic initially. It is reported by her son that she did miss her morning beta diane. Patient given Lopressor 5 grams IV 1 now, will continue as needed every 6 hours for a rate over 120. Monitor on cardiac telemetry Did place order for speech therapy to eval for dysphasia. If more alert and approved by speech therapy, patient may have a regular diet. Patient nothing by mouth at midnight Postoperatively will utilize MiraLAX and senna to avoid constipation Ann catheter to dependent drainage Postoperatively will follow blood counts to monitor for postoperative anemia Had in-depth discussion with patient's son at the bedside. He does verbalize wishes for do not resuscitate and doesn't for size desire of patient and family is very conservative treatment. At time of discharge medical care will return to primary care provider. Dr. Thania Alvarado in [place] DVT Prophylaxis: SCD'S Code Status Do Not Resuscitate Hospital Course Summary Disclaimer The hospital course summary below is not to be considered part of the above Progress Note. Hospital Course Summary Admit patient to inpatient status under the care of Dr. Aviles Orthopedic consultation to Dr. Junior for further recommendations and treatment, at this point, we are planning for surgery tomorrow . 11/07 Did review admission laboratory studies WBC count is slightly up at 12.2 and hemoglobin is stable at 13.9. Patient was hypertensive and tachycardic initially. It is reported by her son that she did miss her morning beta diane. Patient given Lopressor 5 grams IV 1 now, will continue as needed every 6 hours for a rate over 120. Monitor on cardiac telemetry Did place order for speech therapy to eval for dysphasia. If more alert and approved by speech therapy, patient may have a regular diet. Patient nothing by mouth at midnight Postoperatively will utilize MiraLAX and senna to avoid constipation Ann catheter to dependent drainage Postoperatively will follow blood counts to monitor for postoperative anemia Had in-depth discussion with patient's son at the bedside. He does verbalize wishes for do not resuscitate and doesn't for size desire of patient and family is very conservative treatment. At time of discharge medical care will [facility] 0823: Past Medical History Current Medications Home Meds Reported Medications Menthol/Colloidal Oatmeal (Eucerin Calm Itch-Relief Lot) 200 Ml Lotion, 1 ML TOP Y for NEEDED 11/06/16 Lisinopril (Prinivil) 20 Mg Tablet, 20 MG PO PRN Y for HYPERTENSION, TAB 11/06/16 Sotalol HCl (Sotalol) 80 Mg Tablet, 0.5 TAB PO DAILY Y for NEEDED, #60 TAB 5 Refills 11/06/16 Aspirin (Aspirin) 325 Mg Tablet, 1 TAB PO BID, #30 TAB 3 Refills 11/06/16 Lorazepam (Lorazepam) 0.5 Mg Tablet, 0.5 MG PO Q4HPRN Y for ANXIETY, TAB 11/06/16 Bisacodyl (Dulcolax) 10 Mg Supp.rect, 1 SUPP RECTALLY PRN Y for STOOL SOFTENING 11/06/16 Hydrocodone/Acetaminophen (Phoenix 5-325 Tablet) 5-325 Tablet, 0.5-1 TAB PO TID PRN, TAB 11/06/16 Mirtazapine (Remeron) 30 Mg Tablet, 30 MG PO HS, TAB Take 1 tablet, by mouth, one time a day (at bedtime). 11/06/16 Diphenhydramine HCl (Benadryl) 25 Mg Capsule, 1 CAP PO HS, #30 CAP 1 Refill 11/06/16 Acetaminophen (Tylenol) 325 Mg Tablet, 2 TAB PO HS Y for PAIN/FEVER, TAB 11/06/16 Omeprazole Magnesium (Prilosec Otc) 20 Mg Tablet.dr, 1 TAB PO HS for ACID REFLUX , TAB 11/06/16 Melatonin (Melatonin) 3 Mg Tablet, 1 TAB PO HS, #30 TAB 2 Refills 11/06/16 Melatonin (Melatonin) 3 Mg Tablet, 1 TAB PO HS, #30 TAB 2 Refills 11/06/16 Trazodone HCl (Trazodone HCl) 50 Mg Tablet, 50 MG PO WS, TAB Take 1 tablet, by mouth, one time a day (at BEDTIME). 11/06/16 Isosorbide Mononitrate (Isosorbide Mononitrate ER) 30 Mg Tab.er.24h, 1 TAB PO DAILY, TAB 11/06/16 Polyethylene Glycol 3350 (Miralax) 17 Gm Powd.pack, 1 PACKET PO DAILY, #2 PACKET 1 Refill 11/06/16 Calcium Carbonate/Vitamin D3 (Caltrate 600 + D Tablet) 1 Each Tablet, 1 TAB PO DAILY 11/06/16 Aspirin (Aspirin) 325 Mg Tablet, 1 TAB PO DAILY 11/06/16 Calcium Carbonate (Tums) 200 Mg Tab.chew, 1 TAB PO BID 11/06/16 Levothyroxine Sodium (Synthroid) 25 Mcg Tablet, 1 TAB PO ACB, TAB BEST IF TAKEN BEFORE BREAKFAST 11/06/16 Digoxin (Digox) 125 Mcg Tablet, 1 TAB PO DAILY, TAB 11/06/16 Ibuprofen (Ibuprofen) 200 Mg Tablet, 1 TAB PO NOON, TAB 11/06/16 Cholecalciferol (Vitamin D3) (Vitamin D-3) 2,000 Unit Tablet, 1000 UNIT PO DAILY 11/06/16 Sennosides/Docusate Sodium (Senokot-S Tablet) 1 Each Tablet, 1 TAB PO BID, TAB Take 1 tablet, by mouth, 2 times a day. 11/06/16 Sotalol HCl (Sotalol) 80 Mg Tablet, 40 MG PO TID, TAB Take 1 tablet, by mouth, 2 times a day (before meals). 11/06/16 Allergies: Coded Allergies: amoxicillin (Verified Adverse Reaction, Unknown, diarrhea , 11/06/16) calcitonin (Verified Adverse Reaction, Unknown, muscle cramps, 11/06/16) ferrous sulfate (Verified Adverse Reaction, Unknown, abdominal pain, ) raloxifene (Verified Adverse Reaction, Unknown, abdominal cramps, 11/06/16) Uncoded Allergies: Amiodarone HCL (Adverse Reaction, Unknown, incoordination, rash, 11/06/16) Vitamin K (Adverse Reaction, Unknown, pain, 11/06/16) Assessment & Plan Problems: (1) Hip fracture, right Status: Acute Qualifiers: Encounter type: initial encounter Fracture type: closed Qualified Codes: S72.001A - Fracture of unspecified part of neck of right femur, initial encounter for closed fracture (2) Atrial fibrillation Status: Chronic (3) Hypertension Status: Chronic (4) Anxiety Status: Chronic (5) Congestive heart failure (6) Constipation Status: Chronic (7) Hypothyroidism Status: Chronic (8) Spinal stenosis Status: Chronic (9) Dementia Status: Chronic (10) Raynauds syndrome (11) Kyphosis Status: Chronic (12) Scoliosis Status: Chronic (13) Pacemaker Status: Chronic (14) Anemia Status: Chronic (15) Hx-TIA (transient ischemic attack) Status: Chronic (16) H/O: compression fracture of spine Status: Resolved Assessment & Plan: Chronic back pain secondary. (17) Gait instability Plan/Intensity of Service Have independently interviewed and examined pt. Chart reviewed. Case discussed with Dr Alvarado, Dr Junior and my PUBLIC INFORMATION RELATIONS MANAGER. Care plan developed with my supervision; agree with above. Has gait instability and uses walker for ambulation (but does not use walker in her room). Got up from bed at night and fell. Pain to right hip and not able to move. Found to have hip fracture. Admitted at [facility] overnight. Was having significant pain and discomfort - needing multiple doses of MS and ativan for relief. Finally, pain is controlled-pt resting comfortably in bed. Son and Daughter at bedside. Case discussed with them Lungs: decreased, upper airway noises. No distress on O2. CV: irregularly irregular AB: soft nt/nd MSE: somnolent Plan: Inpatient admission for definitive surgical correction of hip fracture. Anticipate greater than 2 midn[address] care required. Consult Dr Junior for orthopedic evaluation. IVF for support. Control pain. With pt's dementia, very high likelihood for encephalopathy during hospitalization. SCD preop. Monitor blood counts. IS for pulm toilet. PT/OT post op for restorative modalities. Medically stable for Sx - no obvious contraindication to Sx at this time. CHARITO IBARRA APRN Nov 06, 2016 14:24 TODD AVILES MD Nov 06, 2016 16:43
[2016-11-06] MEDS ORDERED: METOPROLOL 5mg/5ml INJECTION IV ONE (14:30)
[2016-11-06] MEDS ORDERED: METOPROLOL 5mg/5ml INJECTION IV PRN (14:30)
[2016-11-06 15:18] LABS: BLOOD, URINE 3+ (NEGATIVE); COLOR,URINE YELLOW (YELLOW); LEUKOCYTE ESTERASE ,URINE NEGATIVE (NEGATIVE); NITRITE,URINE NEGATIVE (NEGATIVE); UROBILINOGEN,URINE 0.2 EU/DL (NORMAL)
[2016-11-06 15:28] LABS: BACTERIA,URINE 1+ (NEGATIVE); WBC,URINE 0-1 /HPF (0-5)
[2016-11-06 15:29] LABS: MUCUS,URINE PRESENT; SQUAMOUS EPITHELIAL CELL,UR 0-5
[2016-11-06] MEDS ORDERED: CALC500T7 PO (15:31)
[2016-11-06] MEDS ORDERED: CHOL200024 PO (15:31)
[2016-11-06] MEDS ORDERED: LEVO25TA4 PO (15:31)
[2016-11-06] MEDS ORDERED: IBUP-1724 PO (15:31)
[2016-11-06] MEDS ORDERED: ASPI325T PO ×2 (15:31→16:03)
[2016-11-06] MEDS ORDERED: DIGO125T17 PO (15:31)
[2016-11-06] MEDS ORDERED: CALC1TAB PO (15:36)
[2016-11-06] MEDS ORDERED: POLY17PO6 PO (15:36)
[2016-11-06] MEDS ORDERED: MELA3TAB30 PO ×2 (15:46→15:50)
[2016-11-06] MEDS ORDERED: ISOS30TA6 PO (15:46)
[2016-11-06] MEDS ORDERED: TRAZ-170 PO (15:46)
[2016-11-06] MEDS ORDERED: OMEP20TA2 PO (15:50)
[2016-11-06] MEDS ORDERED: ACET-2321 PO (15:50)
[2016-11-06] MEDS ORDERED: MENT200L TOP (16:03)
[2016-11-06] MEDS ORDERED: DIPH25CA84 PO (16:03)
[2016-11-06] MEDS ORDERED: LISI20TA PO (16:03)
[2016-11-06] MEDS ORDERED: HYDR-4246 PO (16:03)
[2016-11-06] MEDS ORDERED: MIRT30TA PO (16:03)
[2016-11-06] MEDS ORDERED: BISA10SU61 RECTALLY (16:03)
[2016-11-06] MEDS ORDERED: LORA0.5T2 PO (16:03)
[2016-11-06] MEDS ORDERED: NOZIN NASAL SWAB NS SCH (17:00)
[2016-11-06] MEDS: LORAZEPAM 2 MG/ML INJECTION IV PRN ×2 (18:21→23:37)
--- NOTE | 2016-11-06 19:30 | NUR ---
STATUS PT CONFUSED AT THIS TIME. FAMILY AT BEDSIDE. PRN ATIVAN GIVEN FOR AGITATION. PRN MORPHINE GIVEN FOR PAIN. VS STABLE AT THIS TIME. PT ON 2L O2 PER NC. NO S/S OF SOA. NO S/S OF NAUSEA. PT SLEEPING AT THIS TIME, NOT ALERT ENOUGH TO TRY FLUIDS OR FOOD. SOLER PATENT AND DRAINING. BED ALARM ON. CALL LIGHT WITHIN REACH. WILL CONTINUE TO MONITOR.
[2016-11-06] MEDS: SENNA + DOCUSATE TAB PO SCH (22:26)
[2016-11-07] VITALS (43 sets, daily range): BP systolic 90–196; BP diastolic 11–103; PULSE 101–120; RESP 16–24; TEMP 97.5–98.4; O2SAT 51–100
[2016-11-07] MEDS: NORMAL SALINE 1,000 ML IV SCH (01:47)
[2016-11-07] MEDS: MORPHINE SULFATE 2 MG SYRINGE IV PRN ×4 (04:18→21:28)
[2016-11-07] MEDS: LORAZEPAM 2 MG/ML INJECTION IV PRN ×3 (04:38→20:07)
[2016-11-07] MEDS: HALOPERIDOL 5 MG/ML INJECTION IV PRN ×2 (05:11→16:24)
[2016-11-07 06:07] LABS: HCT - HEMATOCRIT 44.4 % (36-46); HGB - HEMOGLOBIN 14.1 GM/DL (12-16); MEAN CORPUSCULAR HGB 32.9 UUG (26-34); MEAN CORPUSCULAR HGB CONC(MCHC 31.8 GM/DL (31-37); MEAN CORPUSCULAR VOLUME 103.5 UM3 (80-100); MEAN PLATELET VOLUME 11.1 UM3 (9.4-12.4); RED BLOOD COUNT 4.29 M/MM3 (4.00-5.20); WBC - WHITE BLOOD COUNT 20.5 T/MM3 (4.5-11.0)
[2016-11-07 06:25] LABS: ANION GAP 15 MEQ/L (5-15); BUN/CREATININE RATIO 26 RATIO (6-26); CALCIUM 9.5 MG/DL (8.4-10.2); CHLORIDE 105 MEQ/L (98-107); CO2 - CARBON DIOXIDE 25 MEQ/L (22-30); CREATININE 1.3 MG/DL (0.7-1.2); GLOMERULAR FILTRATION RATE 39; GLUCOSE 110 MG/DL (65-110); POTASSIUM 5.1 MEQ/L (3.6-5); SODIUM 145 MEQ/L (134-144)
--- NOTE | 2016-11-07 06:29 | NUR ---
Chart Check 24 hour chart check completed
[2016-11-07 06:39] LABS: BAND NEUTROPHILS # 3.3 T/MM3; MONOCYTES # (MANUAL) 1.8 T/MM3 (0-0.8); NEUTROPHILS #(MANUAL)-ABSOLUTE 14.4 T/MM3 (1.8-7.7); TOTAL CELLS COUNTED 100 %
[2016-11-07 06:40] LABS: ANISOCYTOSIS 1+; POIKILOCYTOSIS 1+
--- NOTE | 2016-11-07 06:41 | NUR ---
STATUS PATIENT WAS CONFUSION DURING NIGHT. PRN MORPHINE AND ACTIVIN WAS GIVEN . PATIENT PULLED OUT EKG LEADS,O2 TUBING. PATIENT ALSO WANT TO PULL SOLER,IV NEEDLE OUT. NO N/V,SOA DURING NIGHT. NPO . PATIENT UNABLE TO USE CALL LIGHT.NO BM. CONTINUE TO MONITOR.
[2016-11-07] MEDS ORDERED: VANCOMYCIN 1 GRAM INJECTION ONE (07:20)
[2016-11-07] MEDS ORDERED: BUPIVACAINE 0.25%/EPI 1:200,000 30ml SDV ONE (07:24)
[2016-11-07] MEDS ORDERED: LIDOCAINE 1% (10mg/ml) 30ml SDV ONE (07:24)
[2016-11-07] MEDS: 1/2 NS 1,000 ML IV SCH ×3 (08:00→19:22)
[2016-11-07] MEDS ORDERED: NOZIN NASAL SWAB NS PRN (08:00)
--- NOTE | 2016-11-07 08:19 | ANESPREOP ---
Anesthesia Record Date and Time DATE: 11/07/16 TIME: 08:16 Pre-Op Diagnosis Right hip Fracture Proposed Surgical Procedure Right hemiarthroplasty NPO since: Midnight Allergies: Coded Allergies: amoxicillin (Verified Adverse Reaction, Unknown, diarrhea , 11/06/16) calcitonin (Verified Adverse Reaction, Unknown, muscle cramps, 11/06/16) ferrous sulfate (Verified Adverse Reaction, Unknown, abdominal pain, ) raloxifene (Verified Adverse Reaction, Unknown, abdominal cramps, 11/06/16) Uncoded Allergies: Amiodarone HCL (Adverse Reaction, Unknown, incoordination, rash, 11/06/16) Vitamin K (Adverse Reaction, Unknown, pain, 11/06/16) Ht/Wt/BMI Height: 5 ' 6.00 " Weight: 46.800 kg BMI: 16.7 kg/m2 Vital Signs Date Time Temp Pulse Resp B/P Pulse Ox O2 Delivery O2 Flow Rate FiO2 11/07/16 07:48 98.1 11/07/16 07:39 91 Mask 7.00 11/07/16 07:33 118 11/07/16 07:29 148/70 11/07/16 04:48 22 Medications Inpatient Medications Current Medications Medications (Trade) Dose Ordered Sig/Rox Start Time Stop Time Status Last Admin Dose Admin Morphine Sulfate (Morphine) 2 mg Q2H PRN 11/06/16 12:00 11/07/16 07:11 2 MG Ondansetron HCl (Zofran) 4 mg Q6H PRN 11/06/16 12:00 Lorazepam (Ativan) 0.5 mg Q4H PRN 11/06/16 12:00 11/07/16 04:38 0.5 MG Haloperidol Lactate 0.5 mg 0.5 mg Q6H PRN 11/06/16 12:00 11/07/16 05:11 0.5 MG Sodium Chloride (Normal Saline IV) 1,000 ml @ 75 mls/hr [id number] 11/06/16 12:00 11/07/16 08:01 DC 11/07/16 01:47 75 MLS/HR Multi-Ingredient Antiseptic (Nozin Nasal Swab) 1 each Q8HR 11/06/16 17:00 11/06/16 18:10 DC Multi-Ingredient Antiseptic (Nozin Nasal Swab) 1 each PREOP PRN 11/06/16 13:15 11/06/16 18:10 DC Senna/Docusate Sodium (Senna Plus) 1 tab BID 11/06/16 21:00 11/06/16 22:26 1 TAB Polyethylene Glycol (Miralax) 17 g DAILY 11/07/16 09:00 Miscellaneous Medication (May use PRN orders) PRN PRN 11/06/16 13:30 Magnesium Hydroxide (Mom) 30 ml DAILY PRN 11/06/16 13:30 Bisacodyl (Dulcolax) 10 mg DAILY PRN 11/06/16 13:30 Al Hydroxide/Mg Hydroxide (Maalox) 30 ml Q3H PRN 11/06/16 13:30 Acetaminophen (Tylenol Regular Strength) 1-2 TABS PO Q5H PRN 11/06/16 13:30 Acetaminophen (Tylenol Suppository) 1-2 SUPPOSITORY PER RECTUM Q5H PRN 11/06/16 13:30 Nitroglycerin (Nitrostat) 0.4 mg Q5M PRN 11/06/16 13:30 Metoprolol Tartrate (Lopressor) 5 mg Q6H PRN 11/06/16 14:30 Multi-Ingredient Antiseptic (Nozin Nasal Swab) 1 each Q8HR 11/07/16 17:00 Multi-Ingredient Antiseptic 1 each 1 each PREOP PRN 11/07/16 08:00 Sodium Chloride (0.45% NS) 1,000 ml @ 100 mls/hr Q10H 11/07/16 08:00 Acetaminophen (Tylenol) 325 Mg Tablet, 2 TAB PO HS PRN for PAIN/FEVER, (Reported ) Last Taken: on 11/05/16 2100 Aspirin (Aspirin) 325 Mg Tablet, 1 TAB PO DAILY , (Reported) Last Taken: on 11/05/16 0800 Aspirin (Aspirin) 325 Mg Tablet, 1 TAB PO BID, (Reported) Last Taken: on Unknown Date & Time Bisacodyl (Dulcolax) 10 Mg Supp.rect, 1 SUPP RECTALLY PRN PRN for STOOL SOFTENING, (Reported) Last Taken: on Unknown Date & Time Calcium Carbonate (Tums) 200 Mg Tab.chew , 1 TAB PO BID, (Reported) Last Taken: on 11/05/16 1800 Calcium Carbonate/Vitamin D3 (Caltrate 600 + D Tablet) 1 Each Tablet, 1 TAB PO DAILY, (Reported) Last Taken: on 11/05/16 0800 Cholecalciferol (Vitamin D3) (Vitamin D-3) 2, 000 Unit Tablet, 1,000 UNIT PO DAILY, (Reported) Last Taken: on 11/05/16 0800 Digoxin (Digox) 125 Mcg Tablet, 1 TAB PO DAILY, (Reported) Last Taken: on 11/05/16 0800 Diphenhydramine HCl (Benadryl) 25 Mg Capsule, 1 CAP PO HS, (Reported) Last Taken: on 11/05/16 2100 Hydrocodone/Acetaminophen ([place] 5-325 Tablet) 5-325 Tablet, 0.5-1 TAB PO TID PRN, (Reported) Last Taken: on Unknown Date & Time Ibuprofen (Ibuprofen) 200 Mg Tablet, 1 TAB PO NOON, (Reported) Last Taken: on 11/05/16 1200 Isosorbide Mononitrate (Isosorbide Mononitrate ER) 30 Mg Tab.er.24h, 1 TAB PO DAILY, (Reported) Last Taken: on 11/05/16 0800 Levothyroxine Sodium (Synthroid) 25 Mcg Tablet , 1 TAB PO ACB, (Reported) BEST IF TAKEN BEFORE BREAKFAST Last Taken: on 11/05/16 0600 Lisinopril (Prinivil) 20 Mg Tablet, 20 MG PO PRN PRN for HYPERTENSION, (Reported) Last Taken: on Unknown Date & Time Lorazepam (Lorazepam) 0.5 Mg Tablet, 0.5 MG PO Q4HPRN PRN for ANXIETY, (Reported) Last Taken: on Unknown Date & Time Melatonin (Melatonin) 3 Mg Tablet, 1 TAB PO HS, (Reported) Last Taken: on 11/05/16 2100 Melatonin (Melatonin) 3 Mg Tablet, 1 TAB PO HS, (Reported) Last Taken: on 11/05/162099 Menthol/Colloidal Oatmeal (Eucerin Calm Itch- Relief Lot) 200 Ml Lotion, 1 ML TOP for NEEDED, (Reported) Last Taken: on Unknown Date & Time Mirtazapine (Remeron) 30 Mg Tablet, 30 MG PO HS, (Reported) Take 1 tablet, by mouth, one time a day (at bedtime). Last Taken: on Unknown Date & Time Omeprazole Magnesium (Prilosec Otc) 20 Mg Tablet.dr, 1 TAB PO HS, (Reported) Last Taken: on 11/05/16 2100 Polyethylene Glycol 3350 (Miralax) 17 Gm Powd.pack, 1 PACKET PO DAILY, (Reported) Last Taken: on 11/05/16 0800 Sennosides/Docusate Sodium (Senokot-S Tablet) 1 Each Tablet, 1 TAB PO BID, (Reported) Take 1 tablet, by mouth, 2 times a day. Last Taken: on 11/05/16 1800 Sotalol HCl (Sotalol) 80 Mg Tablet, 40 MG PO TID, (Reported) Take 1 tablet, by mouth, 2 times a day (before meals). Last Taken: on 11/05/16 1800 Sotalol HCl (Sotalol) 80 Mg Tablet, 0.5 TAB PO DAILY PRN for NEEDED, (Reported) Last Taken: on Unknown Date & Time Trazodone HCl (Trazodone HCl) 50 Mg Tablet, 50 MG PO WS, (Reported) Take 1 tablet, by mouth, one time a day (at BEDTIME). Last Taken: on 11/05/16 1700 Currently on Beta Argenis: Yes Beta Argenis Last Taken: at home Medical/Surgical History Anesthesia PMH: Reports: *Hypertension, Anxiety, CHF, CVA/Stroke/TIA (TIA 3-4 DAYS AGO, ASSOCIATED WITH HIGH BP), Cancer (BREAST), Cardiac Arrythmia, Reflux, Thyroid Disease, Denies: *RI, Asthma, Blood Transfusion Reac, COPD, Seizures Smoking Status: Never smoker Has pt. smoked today?: No Use Chewing Tobacco?: No Second Hand Exposure: No Substance Use Type: does not use Past Surgical History Orthopedic Surgeries: Yes - KYPHOPLASTIES, LEFT HIP FX 4 YEARS AGO Abdominal Surgeries: No Genitourinary Surgeries: No Cardiac Surgeries: No - PACEMAKER Endocrine Surgeries: No Reproductive Surgeries: No - MASTECTOMY LEFT Neurological Surgeries: No Ear Surgeries: No Nose Surgeries: No - RHINOPLASTY Throat Surgeries: No Other Surgeries: No Anesthesia Adverse Reactions: FOUND none Family Hx of Anesthesia Advers: none Hx of Motion Sickness: No Pertinent Findings Laboratory Tests 11/07/16 04:58 Test 11/06/16 12:10 Prothromb Time International Ratio 1.05 (0.76-1.04) EKG Rhythm: Sinus Arhythmia, Paced EKG Ectopy: PVC Physical Exam Respiratory: Decreased breath sounds L, Decreased breath sounds R, Lungs clear Cardiovascular: FOUND Regular rate, rhythm Airway Assessment Mallampati Score: II TMD: 3 Fingerbreadths Neck Extension: Poor Overall Assessment: May Be Diff Mask Vent., May Be Diff Intubation ASA: 4 Discussion Discussed risks/options/alternatives of anesthesia and questions answered. Patient consents. Nursing pain assessment noted. Attestation Statement Prior to the delivery of any anesthetic medication, I examined the patient, developed the plan, obtained the patient's consent and discussed the risk and benefits of the procedure with the patient/guardian. MIRIAM BARTHOLOMEW CLASSIFIED ADVERTISING CLERK Nov 07, 2016 08:19
[2016-11-07] MEDS ORDERED: PROPOFOL 200mg 20 ML IV ONE (08:51)
[2016-11-07] MEDS ORDERED: KETAMINE 500mg/10ml INJECTION ONE (08:52)
[2016-11-07] MEDS: POLYETHYL.GLYCOL 3350 PACKET 17gm PO SCH (09:00)
[2016-11-07] MEDS: SENNA + DOCUSATE TAB PO SCH (09:00)
[2016-11-07] MEDS ORDERED: SALINE FLUSH 10ml SYRINGE ONE (09:18)
[2016-11-07] MEDS ORDERED: FENTANYL 100mcg/2ml INJECTION ONE (09:25)
--- NOTE | 2016-11-07 09:49 | NUR ---
DYSPHAGIA EVALUATION ATTEMPTED THIS AM- PATIENT IN SURGERY. PLEASE CONTACT ST DEPARTMENT WHEN PATIENT IS ALERT AND IS ABLE TO SAFELY TRIAL PO INTAKE.
--- NOTE | 2016-11-07 10:38 | PDOPERATE ---
Hip Hemiarthroplasty Date of Operation 11/07/16 Preoperative Diagnosis Right displaced subcapital femoral neck fracture. Postoperative Diagnosis Right displaced subcapital femoral neck fracture. Operation Right hip hemiarthroplasty. Surgeon Caden Junior MD Advertising Campaign Manager MANASA Mejia Complications None. Anesthesia General Estimated Blood Loss See Anesthesia Record. Fluids Please See Anesthesia Record. Description of Operation The patient and the operative extremity were identified and marked in the preoperative holding area. The patient was brought back to the operating suite and placed supine on the operating table. The patient was placed under general anesthesia and then placed in the lateral decubitus position on a well-padded pegboard with the right side up. The right lower extremity was prepped and draped in my normal sterile fashion. Time-out was performed. A posterior approach was utilized. The external rotator tendons were identified , tagged and detached. A capsulotomy was performed and a femoral neck osteotomy was made 1 cm proximal to the lesser trochanter. The femoral head was removed and sized on the back table. We trialed and sized the acetabulum and selected a 48 head. I then prepared the proximal femur with reaming and the broaching to a size 8 which was stable. We then trialed with a 48-3 head and the patient was very stable. Leg lengths were equal. After irrigation the bone was prepared for cementing and then the final stem was cemented into place in the proper anteversion. After the cement had cured we trialed again. Again, this felt good. A final -3 48 head and neck were placed followed by a final reduction. The wound was thoroughly irrigated. Then 1 g of vancomycin powder was placed into the joint before the capsulotomy was repaired with #1 Ethibond. The short external rotators were repaired back to the medius fascia with #1 Ethibond. The gluteus fascia was repaired with #1 Vicryl. The subcutaneous tissue was closed with 2-0 Vicryl followed by a running 4-0 Monocryl in the subcuticular layer and then Dermabond and a sterile dressing. The drapes were removed. The patient was placed back into a supine position and taken to the recovery room under the care of Anesthesia. The patient tolerated the procedure well. There were no complications. PING JUNIOR MD Nov 07, 2016 10:38
[2016-11-07] MEDS ORDERED: MILK OF MAGNESIA 30 ML SUSP PO PRN (10:45)
[2016-11-07] MEDS ORDERED: FUROSEMIDE 20 MG/2 ML INJECTION IV ONE (11:45)
--- NOTE | 2016-11-07 11:57 | ANESPO ---
Post-Op Note Date 11/07/16 Time: 11:52 Status Pt Participated in Evaluation: Other (Patient unable to participate do to mental status) Vital Signs Date Time Temp Pulse Resp B/P Pulse Ox O2 Delivery O2 Flow Rate FiO2 11/07/16 11:30 105 20 149/70 84 Non-Rebreather 10.00 11/07/16 10:51 97.6 Respiratory Function: Airway patent Cardiovascular Function: Regular pulse Telemetry Pattern: ST Mental Status: Lethargic Pain Level Intensity: 5 Unable to Assess Pain Due To: mental status Hydration: IV infusing Complications during Recovery None apparent Post-Anesthesia Notes I spoke to Dr Aviles in regards to patients respiratory status of SPO2 in the mid 80's. Lasix ordered and patient is okay to transfer to the floor if SPO2 remains stable in the mid 80's. Follow-Up Instructions Instructions Per Surgeon MIRIAM BARTHOLOMEW CRNA Nov 07, 2016 11:56
--- NOTE | 2016-11-07 12:33 | DI ---
Indication: ITS.REASON: RESP DISTRESS CHEST 1 VIEW: Comparison: 11/06/2016 Technique: Single supine portable chest Findings: Patient continues to show cardiac prominence with a permanent pacemaker. Central vascularity is slightly more prominent on the previous examination. Patient should significantly more prominent infiltrative changes in the right lower lobe with slightly increased markings on the left side. Patient still shows rotoscoliosis with multiple previously stabilized vertebral fractures in the thoracic and the lumbar spine. Impression: 1. Significant worsening in the chest particularly involving the right lower lobe where there is now significant infiltrate now present. Just mildly increased interstitial prominence seen on the left side. 2. Mild cardiac prominence with permanent pacemaker in place. .
[2016-11-07] MEDS ORDERED: NOZIN NASAL SWAB NS ONE (12:45)
--- NOTE | 2016-11-07 12:55 | NUR ---
Arrivers to Surgical Floor, Room # 112, from Post-Op Unit accompanied by Nurses. Non-rebreather mask at 10/L. Patient is awake and alert. Respitory Therapy present with Bi-PaP. Resp. Therapy. replaced non-rebreaTHER to Bi-Pap. IV in right hand. NS infuses at 75/cc/hr. Ann cath drain clear urine to DD bag. Ice pack to right hip surgery site. Family present.
--- NOTE | 2016-11-07 12:59 | NUR ---
PACU STAY UNABLE TO GET O2 SAT WITH MULTIPLE ATTEMPTS WITH EAR PROBE AND FINGER PROBE FINALLY O2 SAT IN 80'S WHEN PROBE ON TOE OF LEFT FOOT. PT WAS NOT VERBALLY RESPONSIVE. O2 SATS BEGAN DROPPING FURTHER WITH EVEN BEING CHANGED TO A NONREBREATHER MASK AT 10L. TASIA HERNANDEZ NOTIFIED AND HE CONSULTED WITH DR. WEST. LASIX 20MG ORDERED AND GIVEN IV.CXR OBTAINED AND PT PLACED ON BIPAP .MUCH BETTER RESPONSE WITH O2 SATS INCREASING BACK TO 95%. DR KONG WAS MADE AWARE OF ONLY BEING ABLE TO GET PEDAL PULSE WITH DOPPLER .RIGHT FOOT COLD AND MOTTLED CAPILLARY REFILL SLOW. UPON TRANSFER TO PT ROOM PT MORE ALERT LOOKING AROUND AND SMILING STILL NO VERBAL RESPONSE.
[2016-11-07] MEDS ORDERED: CLINDAMYCIN 900mg IVPB 50 ML IV ONE (13:15)
[2016-11-07] MEDS ORDERED: CLINDAMYCIN 600mg IVPB 50 ML IV ONE (13:15)
--- NOTE | 2016-11-07 13:26 | NUR ---
Pt. at bedside sitting on chair holding pt. hand. Daughter is in room; she is a RN; understands Hospital enviroment and is helpful explaining to her dad. Pt. is somewhat restless and is starting to pull at tubing. Ativan 0.25 mg. given IV. O2 sats 100% with BI-PAP.
--- NOTE | 2016-11-07 13:49 | DI ---
Indication: ITS.REASON: Rt Hip Hemiarthroplasty PELVIS W/1 VIEW RT HIP: Comparison: 11/06/2016 Technique: Single view pelvis and crosstable right hip Findings: Patient now shows postoperative changes of bilateral hip arthroplasties. Alignment seems satisfactory. No unexpected findings appreciated. Impression: Since recent previous study there is now been a hip replacement on the right side. Both the hip arthroplasties seem in satisfactory position. .
--- NOTE | 2016-11-07 14:48 | NUR ---
Hold PT/OT evals this date: Per RN d/t respiratory status. Will continue to follow and attempt eval tomorrow morning. Call [phone] or [phone] with questions.
--- NOTE | 2016-11-07 16:24 | PNPDOC ---
Subjective Date DATE: 11/07/16 TIME: 16:05 Subjective F/U: Right hip fracture. Tolerated Sx, but very hypoxic post op. Needing BiPAP to help improve saturations. Did emergency preparedness manager about 1500 cc fluid during Sx. Post op CXR reporting infiltrate, but I suspect by have component of pulmonary edema. Restless post op. Ativan helping. Family members at bedside helping to calm pt. Objective Vital Signs Vital signs Vital Signs Date Time Temp Pulse Resp B/P Pulse Ox O2 Delivery O2 Flow Rate FiO2 11/07/16 15:30 98.4 112 20 138/66 100 Bi-pap 11/07/16 15:21 100 11/07/16 12:10 10.00 Height (Feet): 5 Height (Inches): 6.00 Weight (Kilograms): 46.800 General General Appearance: Well Developed, Confused, Moderate Distress, Looks Stated Age Eyes (Brief) Eyes: FOUND: EOMI, PERRL ENMT (Brief) ENMT: FOUND: hearing intact, mucosa moist Neck (Brief) Neck: FOUND: midline, NOT FOUND: nuchal rigidity, spasm Respiratory (Brief) Respiratory: FOUND: other (Coarse bilaterally. ), NOT FOUND: equal bilaterally (Decreased right breath sounds. ), rales, wheezes Cardiovascular (Brief) Cardiac: FOUND: pedal edema (+2), NOT FOUND: regular rate (Irregular ), regular rhythm (Irregular ) Abdomen (Brief) Abdominal: FOUND: soft, NOT FOUND: BS normo active x4 (Decreased bowel sounds) , distended, tender (Brief) Female: FOUND: other (Ann in place ) Extremities (Brief) Extremity : Side: Bilateral Extremity: leg Extremity Finding: FOUND: edema (+2 ), other (scd) Musculoskeletal (Brief) Musculoskeletal: FOUND: loss of motion (Right leg. ) Neurologic (Brief) Neurological: FOUND: cranial 2-12 intact (intact ), motor (intact ) Psychiatric (Brief) Psychiatric: FOUND: other (Agitated, restless ) Laboratory Laboratory Laboratory Tests 11/06/16 12:10 11/07/16 04:58 Laboratory Tests 11/06/16 12:10 11/07/16 04:58 Assessment & Plan Problems: (1) Hip fracture, right Status: Acute Qualifiers: Encounter type: initial encounter Fracture type: closed Qualified Codes: S72.001A - Fracture of unspecified part of neck of right femur, initial encounter for closed fracture Assessment & Plan: Right displaced subcapital femoral neck fracture. 11/07: Right hip hemiarthroplasty. (2) Acute respiratory failure Status: Acute Qualifiers: Respiratory failure complication: hypoxia Qualified Codes: J96.01 - Acute respiratory failure with hypoxia Assessment & Plan: BiPAP requiring post op - Pulm edema and likely aspiration pneumonia. (3) Pulmonary edema Status: Acute Qualifiers: Chronicity: acute Qualified Codes: J81.0 - Acute pulmonary edema (4) Aspiration pneumonia Status: Acute Qualifiers: Laterality: right Lung location: lower lobe of lung Assessment & Plan: Suspect aspiration (5) Hyperkalemia Status: Acute Assessment & Plan: Not POA (6) REJI (acute kidney injury) Status: Acute (7) Congestive heart failure Status: Chronic Qualifiers: Congestive heart failure type: unspecified congestive heart failure type Congestive heart failure chronicity: chronic Qualified Codes: I50.9 - Heart failure, unspecified (8) Atrial fibrillation Status: Chronic (9) Hypertension Status: Chronic (10) Constipation Status: Chronic (11) Hypothyroidism Status: Chronic (12) Dementia Status: Chronic (13) Anxiety Status: Chronic (14) Raynauds syndrome Status: Chronic Qualifiers: Raynaud?s-associated gangrene presence: without gangrene Qualified Codes: I73.00 - Raynaud's syndrome without gangrene (15) Spinal stenosis Status: Chronic (16) Kyphosis Status: Chronic (17) Scoliosis Status: Chronic (18) Pacemaker Status: Chronic (19) Anemia Status: Chronic Qualifiers: Anemia type: unspecified type Qualified Codes: D64.9 - Anemia, unspecified (20) Hx-TIA (transient ischemic attack) Status: Chronic (21) H/O: compression fracture of spine Status: Resolved Assessment & Plan: Chronic back pain secondary. (22) Gait instability Status: Chronic (23) Hypernatremia Status: Acute Assessment & Plan: POA Plan/Intensity of Service BiPAP for respiratory support, wean as able. Will start Rocephin and continue Clindamycin (given pre op and to receive 3 doses post op) for coverage of potential aspiration pneumonia. Lasix 20mg IV give post op for pulmonary edema. Continue 1/2 NS at 75cc/hr to help maintain hydration, monitoring volume status. Control agitation with Haldol and Ativan as needed. With pt's dementia, due suspect encephalopathy will be a challenge post op. Will change digoxin to IV as worry pt will not be able to take oral well. Continue SCD; Lovenox started post op and will need for 30 days after Sx. Restart ASA therapy used for stroke prevention - non chronically anticoagulated due to fall risk. Recheck BMP in am to monitor electrolytes and renal status. Repeat CBC in am due to leukocytosis and to monitor blood counts. Case discussed with CM and family. Time spent with pt care 35 minutes. DVT Prophylaxis: SCD'S, Lovenox Code Status Do Not Resuscitate Hospital Course Summary Disclaimer The hospital course summary below is not to be considered part of the above Progress Note. Hospital Course Summary 11/06 Admit patient to inpatient status under the care of Dr. Aviles Orthopedic consultation to Dr. Junior for further recommendations and treatment, at this point, we are planning for surgery tomorrow . 11/07 Did review admission laboratory studies WBC count is slightly up at 12.2 and hemoglobin is stable at 13.9. Patient was hypertensive and tachycardic initially. It is reported by her son that she did miss her morning beta diane. Patient given Lopressor 5 grams IV 1 now, will continue as needed every 6 hours for a rate over 120. Monitor on cardiac telemetry Did place order for speech therapy to eval for dysphasia. If more alert and approved by speech therapy, patient may have a regular diet. Patient nothing by mouth at midnight Postoperatively will utilize MiraLAX and senna to avoid constipation Ann catheter to dependent drainage Postoperatively will follow blood counts to monitor for postoperative anemia Had in-depth discussion with patient's son at the bedside. He does verbalize wishes for do not resuscitate and doesn't for size desire of patient and family is very conservative treatment. At time of discharge medical care will return to primary care provider. Dr. Thania Alvarado in [place] 11/07 OP Day - Right hip hemiarthroplasty by Dr Junior Tolerated Sx, but very hypoxic post op. Needing BiPAP to help improve saturations. Did emergency preparedness manager about 1500 cc fluid during Sx. Post op CXR reporting infiltrate, but I suspect by have component of pulmonary edema. Restless post op. Ativan helping. Family members at bedside helping to calm pt. BiPAP for respiratory support, wean as able. Will start Rocephin and continue Clindamycin (given pre op and to receive 3 doses post op) for coverage of potential aspiration pneumonia. Lasix 20mg IV give post op for pulmonary edema. Continue 1/2 NS at 75cc/hr to help maintain hydration, monitoring volume status. Control agitation with Haldol and Ativan as needed. With pt's dementia, due suspect encephalopathy will be a challenge post op. Will change digoxin to IV as worry pt will not be able to take oral well. Continue SCD; Lovenox started post op and will need for 30 days after Sx. Restart ASA therapy used for stroke prevention - non chronically anticoagulated due to fall risk. Recheck BMP in am to monitor electrolytes and renal status. Repeat CBC in am due to leukocytosis and to monitor blood counts. TODD AVILES MD Nov 07, 2016 16:08
[2016-11-07] MEDS: DIGOXIN 500mcg/2ml INJECTION IV SCH (16:25)
[2016-11-07] MEDS: CLINDAMYCIN 600mg IVPB 50 ML IV SCH ×2 (16:43→23:30)
[2016-11-07] MEDS: NOZIN NASAL SWAB NS SCH (17:00)
[2016-11-07] MEDS: CEFTRIAXONE 1 G in NORMAL SALINE 100 ML IV SCH (17:55)
--- NOTE | 2016-11-07 19:28 | NUR ---
IV ANTIBIOTIC Rocephin bag hanging at same level as 1/[address] Aviles notified. Senior Network Systems Engineer new orders. Addendum: 11/07/16 at 2028 by PAULIE WOODSON RN IV ANTIBIOTIC: Rocephin Hanging at same level as 1/[address] Aviles notified. NO new orders.
--- NOTE | 2016-11-07 19:30 | NUR ---
SUMMARY OF SHIFT. Returned from Right Hip Surgery on BI-PAP. Eventually Respirtory Therapy was able to change Oxygen use her to SD. Pt. becomes restless, anxious and even agitated at times...pulls at tubings. Ativan given X1. Haldol given X1. Both effective. 1/2 NS infuses at 100 cc/hr. IV antibiotics given. Ann cathater intact and patent; drains clear urine to DD bag. Pt. is responsive . Her , daughter and son are at bedside. most of the day.
--- NOTE | 2016-11-07 20:07 | NUR ---
PRN ATIVAN PATIENT GIVEN 0.5mg ATIVAN FOR SEVERE AGITATION BY Bk ARANDA RN. PATIENT WAS TAKING OFF CLOTHES AND PULLING ON SOLER CATHETER. UNABLE TO REORIENT.
--- NOTE | 2016-11-07 21:48 | NUR ---
PROVIDER NOTIFICATION Notified Dr Machado via [employer] that patient did not have a diet ordered and had scheduled PO meds due. Dr Machado gave the order to hold all PO meds until Speech eval was completed. Also increased Haldol order for patient agitation. Will continue to monitor.
[2016-11-07] MEDS ORDERED: HALOPERIDOL 5 MG/ML INJECTION IV PRN (22:00)
[2016-11-07] MEDS ORDERED: TRAZODONE 50 MG TABLET PO SCH (22:00)
[2016-11-07] MEDS ORDERED: MIRTAZAPINE 30 MG TABLET PO SCH (22:00)
[2016-11-07] MEDS: ENOXAPARIN 40 MG/0.4 ML INJECTION SQ SCH (23:34)
[2016-11-08] VITALS (9 sets, daily range): BP systolic 102–170; BP diastolic 53–93; PULSE 99–112; RESP 16–20; TEMP 97.3–100.2; O2SAT 92–100
--- NOTE | 2016-11-08 00:42 | NUR ---
Chart Check 24 hour chart check completed
[2016-11-08] MEDS: NOZIN NASAL SWAB NS SCH ×4 (00:50→18:36)
--- NOTE | 2016-11-08 03:24 | NUR ---
PROVIDER NOTIFICATION Notified Dr Machado via [employer] IV has been found to have infiltrated. Patient is again agitated, but can not give IV meds until new access is established. Received a one time order for 5mg Haldol IM. Order input, but IV access was obtained prior to administration. Will continue to monitor.
[2016-11-08] MEDS ORDERED: HALOPERIDOL 5 MG/ML INJECTION IM ONE (03:30)
[2016-11-08] MEDS: LORAZEPAM 2 MG/ML INJECTION IV PRN ×4 (03:46→18:36)
--- NOTE | 2016-11-08 03:46 | NUR ---
PRN ATIVAN PATIENT GIVEN 0.5mg ATIVAN FOR SEVERE AGITATION. PATIENT WAS TAKING OFF CLOTHES AND PULLING ON SOLER CATHETER. Addendum: 11/08/16 at 0534 by JAMAL LIRA RN PRN ATIVAN PATIENT GIVEN 0.5mg ATIVAN FOR SEVERE AGITATION. PATIENT WAS TAKING OFF CLOTHES AND PULLING ON SOLER CATHETER. UNABLE TO REORIENT.
[2016-11-08] MEDS: CLINDAMYCIN 600mg IVPB 50 ML IV SCH ×3 (05:15→18:42)
[2016-11-08 05:37] LABS: HCT - HEMATOCRIT 30.3 % (36-46); HGB - HEMOGLOBIN 9.9 GM/DL (12-16); IMMATURE GRANULOCYTE # (AUTO) 0.02 T/MM3 (0.00-0.03); IMMATURE GRANULOCYTE % (AUTO) 0.2 % (0.0-0.5); LYMPHOCYTES # (AUTO) 0.9 T/MM3 (1-4.8); LYMPHOCYTES % (AUTO) 6.8 % (23-45); MEAN CORPUSCULAR HGB 32.8 UUG (26-34); MEAN CORPUSCULAR HGB CONC(MCHC 32.7 GM/DL (31-37); MEAN CORPUSCULAR VOLUME 100.3 UM3 (80-100); MEAN PLATELET VOLUME 10.4 UM3 (9.4-12.4); MONOCYTES # (AUTO) 1.4 T/MM3 (0-0.8); MONOCYTES % (AUTO) 10.9 % (0-9.0); NEUTROPHILS #(AUTO)-ABSOLUTE 10.5 T/MM3 (1.8-7.7); NEUTROPHILS % (AUTO) 82.1 % (33-66); RED BLOOD COUNT 3.02 M/MM3 (4.00-5.20); WBC - WHITE BLOOD COUNT 12.7 T/MM3 (4.5-11.0)
[2016-11-08 06:05] LABS: ANION GAP 9 MEQ/L (5-15); BUN/CREATININE RATIO 35 RATIO (6-26); CALCIUM 8.3 MG/DL (8.4-10.2); CHLORIDE 108 MEQ/L (98-107); CO2 - CARBON DIOXIDE 25 MEQ/L (22-30); CREATININE 1.3 MG/DL (0.7-1.2); GLOMERULAR FILTRATION RATE 39; GLUCOSE 137 MG/DL (65-110); POTASSIUM 4.4 MEQ/L (3.6-5); SODIUM 142 MEQ/L (134-144)
[2016-11-08] MEDS: MORPHINE SULFATE 2 MG SYRINGE IV PRN ×4 (06:13→19:21)
--- NOTE | 2016-11-08 06:42 | NUR ---
SHIFT SUMMARY PATIENT HAS NOT BEEN ALERT OR ORIENTED THIS SHIFT. VITAL SIGNS HAVE BEEN STABLE ON O2 PER NC. O2 HAS BEEN TITRATED FROM 5L NC TO 3.5L NC THIS SHIFT. PATIENT WAS GIVEN 2 DOSES OF ATIVAN THIS SHIFT FOR SEVER AGITATION WHERE SHE WAS PULLING AT CLOTHES, TELEMETRY, AND SOLER. THIS ALLOWED THE PATIENT TO REST FOR A SHORT TIME. TWO DOSES OF MORPHINE WERE ALSO GIVEN TO ALLEVIATE PERCEIVED PAIN. ALL PO MEDS ARE ON HOLD UNTIL SPEECH DOES THE SWALLOW STUDY. FAMILY IS EXPECTED TO RETURN THIS AM. WILL CONTINUE TO MONITOR.
[2016-11-08] MEDS: ASPIRIN 325 MG TABLET PO SCH ×2 (07:10→21:00)
[2016-11-08] MEDS: SENNA + DOCUSATE TAB PO SCH (07:11)
[2016-11-08] MEDS: CALCIUM CARBONATE 500mg Chewable TAB PO SCH ×2 (07:11→21:00)
[2016-11-08] MEDS: SOTALOL 80 MG TABLET PO SCH ×2 (07:11→21:00)
[2016-11-08] MEDS: OMEPRAZOLE 20 MG CAPSULE PO SCH ×2 (07:11→22:00)
[2016-11-08] MEDS: LEVOTHYROXINE 25 MCG TABLET PO SCH (07:12)
[2016-11-08] MEDS: 1/2 NS 1,000 ML IV SCH ×2 (07:26→18:42)
--- NOTE | 2016-11-08 07:52 | PDORTHOPN ---
Subjective Date DATE: 11/08/16 TIME: 07:41 Subjective P/O day #1 of right hip cemented endoprosthesis by Dr. Junior. Paty required BiPap yesterday after surgery to maintain sats. She has been weaned from 5L to 3.5L via NC now. CXR showed infiltrate that Dr. Aviles has indicated is likely aspiration pneumonia. She is on Rocephin and Clindamycin. Creatine is 1.3, stable as compared to yesterday, but up from admission lab of 0.9. Temp is 99.6 and white count of 12.7. She has been agitated and confused and picking at her dressing. She appears in no acute distress and was resting comfortably during my visit. Objective Vital Signs Vital signs Vital Signs 11/07/16 11/07/16 11/07/16 11/07/16 23:27 23:34 23:39 23:55 Temp 98.3 Pulse 113 Resp 22 22 B/P 114/69 Pulse Ox 100 96 O2 Delivery Nasal Cannula Nasal Cannula Nasal Cannula O2 Flow Rate 5.00 5.00 4.00 11/08/16 04:10 Temp 99.6 Pulse 109 Resp 20 B/P 109/61 Pulse Ox 98 O2 Delivery Nasal Cannula O2 Flow Rate 3.50 Height (Feet): 5 Height (Inches): 6.00 Weight (Kilograms): 46.800 General General Appearance: Confused, No Acute Distress Respiratory (Brief) Respiratory Brief: FOUND: other (on 3.5L via NC ), wheezes (right LL) Cardiovascular (Brief) Cardiac: FOUND: calf easily compressible, calf soft, nontender, peripheral pulses intact Capillary Refill: <2 sec Abdomen (Brief) Abdominal Brief: FOUND: non-distended Musculoskeletal (Brief) Musculoskeletal Brief: FOUND: tenderness, Not FOUND: deformity Surgical Site Incision: FOUND: Mepilex dressing intact (lower end of dressing had rolled up, tape was applied to seal the area. No drainage.) Integumentary (Brief) Integumentary Brief: FOUND dry, FOUND pink, FOUND warm, NOT FOUND rash Neurologic (Brief) Neurological Brief: FOUND: extremities w/o deficits, neuro intact Psychiatric (Brief) Psychiatric Brief: FOUND: no acute distress Laboratory Laboratory Laboratory Tests 11/06/16 12:10 11/07/16 04:58 11/08/16 05:21 Laboratory Tests 11/06/16 12:10 11/07/16 04:58 11/08/16 05:21 Assessment & Plan Problems: (1) Fracture of hip, right, closed Status: Acute Qualifiers: Encounter type: initial encounter Qualified Codes: S72.001A - Fracture of unspecified part of neck of right femur, initial encounter for closed fracture Assessment & Plan: P/O day #1 of right hip endoprosthesis Lovenox 40mg SQ Q day for a total of 30 days post op for DVT prevention mobilize as can tolerate given overall mental status and medical issues pain control and bowel motivation medical management. Hospital Course Summary Disclaimer The visit summary below is not to be considered part of the above Progress Note. Hospital Course 11/06 Admit patient to inpatient status under the care of Dr. Aviles Orthopedic consultation to Dr. Junior for further recommendations and treatment, at this point, we are planning for surgery tomorrow . 11/07 Did review admission laboratory studies WBC count is slightly up at 12.2 and hemoglobin is stable at 13.9. Patient was hypertensive and tachycardic initially. It is reported by her son that she did miss her morning beta diane. Patient given Lopressor 5 grams IV 1 now, will continue as needed every 6 hours for a rate over 120. Monitor on cardiac telemetry Did place order for speech therapy to eval for dysphasia. If more alert and approved by speech therapy, patient may have a regular diet. Patient nothing by mouth at midnight Postoperatively will utilize MiraLAX and senna to avoid constipation Ann catheter to dependent drainage Postoperatively will follow blood counts to monitor for postoperative anemia Had in-depth discussion with patient's son at the bedside. He does verbalize wishes for do not resuscitate and doesn't for size desire of patient and family is very conservative treatment. At time of discharge medical care will return to primary care provider. Dr. Thania Alvarado in [place] 11/07 OP Day - Right hip hemiarthroplasty by Dr Junior Tolerated Sx, but very hypoxic post op. Needing BiPAP to help improve saturations. Did interior plant caretaker about 1500 cc fluid during Sx. Post op CXR reporting infiltrate, but I suspect by have component of pulmonary edema. Restless post op. Ativan helping. Family members at bedside helping to calm pt. BiPAP for respiratory support, wean as able. Will start Rocephin and continue Clindamycin (given pre op and to receive 3 doses post op) for coverage of potential aspiration pneumonia. Lasix 20mg IV give post op for pulmonary edema. Continue 1/2 NS at 75cc/hr to help maintain hydration, monitoring volume status. Control agitation with Haldol and Ativan as needed. With pt's dementia, due suspect encephalopathy will be a challenge post op. Will change digoxin to IV as worry pt will not be able to take oral well. Continue SCD; Lovenox started post op and will need for 30 days after Sx. Restart ASA therapy used for stroke prevention - non chronically anticoagulated due to fall risk. Recheck BMP in am to monitor electrolytes and renal status. Repeat CBC in am due to leukocytosis and to monitor blood counts. MAYKEL HIRSCH Nov 08, 2016 07:46
[2016-11-08] MEDS ORDERED: DIGOXIN 125 MCG TABLET PO SCH (09:00)
[2016-11-08] MEDS: ISOSORBIDE MONONITRATE ER 30 MG TABLET PO SCH (09:13)
[2016-11-08] MEDS: CALCIUM 600mg + VIT D 400 TABLET PO SCH (09:13)
[2016-11-08] MEDS: CHOLECALCIFEROL 1,000 UNIT TABLET PO SCH (09:13)
[2016-11-08] MEDS: DIGOXIN 500mcg/2ml INJECTION IV SCH (09:26)
[2016-11-08] MEDS: CEFTRIAXONE 1 G in NORMAL SALINE 100 ML IV SCH (09:26)
--- NOTE | 2016-11-08 09:43 | DI ---
EXAM: CHEST 1 VIEW 1004 hours COMPARISON: 11/07/2016. 11/06/2016. HISTORY: ITS.REASON: F/U . FINDINGS: The heart is enlarged. The pulmonary vessels are a is prominent and indistinct. There is airlessness of the left lower lobe which may be related to atelectasis or consolidation with left retrocardiac opacity and obscuration of left hemidiaphragm. Persistent added opacity seen at the right lung base. There is blunting of the costophrenic angles. There is no evidence for a pneumothorax. Previous vertebroplasty or kyphoplasty seen at multiple thoracic and lumbar vertebral bodies. Pacemaker and pacer wires are stable. IMPRESSION: 1. Cardiomegaly. 2. Airlessness of the left lower lobe which may related to atelectasis or consolidation. 3. Bilateral small pleural effusions again noted. 4. Added opacity at right lung base is again noted which may be related to a persistent infiltrate and is similar to mildly improved compared to the prior exam. LOCATION OF DICTATION: [facility] [place] .
--- NOTE | 2016-11-08 10:29 | PNPDOC ---
Subjective Date DATE: 11/08/16 TIME: 10:10 Subjective Per reports from the patient's nurse and son Maik, the patient was agitated overnight and pulling off her telemetry. She was given Haldol, Ativan and morphine and currently is somnolent. Speech therapy was not able to evaluate her this morning due to somnolence. She continues to be nothing by mouth including meds for now because of risk of aspiration. She has been on nasal cannula and off of BiPAP since yesterday afternoon. She has a Ann catheter in with good urine output. Objective Vital Signs Vital signs Vital Signs Date Time Temp Pulse Resp B/P Pulse Ox O2 Delivery O2 Flow Rate FiO2 11/08/16 09:26 112 11/08/16 08:21 20 11/08/16 08:00 98.6 148/90 94 Nasal Cannula 3.50 11/07/16 15:21 100 I&O 3150/1050 Weight 47.7 kg up from 46.8 kg on admission GEN-somnolent, patient does not arouse much for physical exam. I did not try to awaken her since she had not slept well last night. HEENT-normal cephalic, atraumatic. Nasal cannula on, otherwise unable to assess. NECK-no JVD CV-mild tachycardia with irregular rhythm CHEST-clear to auscultation anteriorly ABD-soft, nondistended, no obvious tenderness, normal bowel sounds -Ann in place with normal colored urine EXT-no edema, mild bruising on the left forearm NEURO-unable to assess, patient had significant delirium overnight and has underlying dementia SKIN-warm and dry, mild bruising left forearm Height (Feet): 5 Height (Inches): 6.00 Weight (Kilograms): 47.700 Laboratory Laboratory Laboratory Tests 11/06/16 12:10 11/07/16 04:58 11/08/16 05:21 Laboratory Tests 11/06/16 12:10 11/07/16 04:58 11/08/16 05:21 Radiology Chest x-ray shows continued right lower lobe infiltrate and new left lower lobe atelectasis versus consolidation. Small pleural effusions still present. Assessment & Plan Problems: (1) Hip fracture, right Status: Acute Qualifiers: Encounter type: initial encounter Fracture type: closed Qualified Codes: S72.001A - Fracture of unspecified part of neck of right femur, initial encounter for closed fracture Assessment & Plan: Right displaced subcapital femoral neck fracture. 11/07: Right hip hemiarthroplasty. (2) Acute respiratory failure Status: Acute Qualifiers: Respiratory failure complication: hypoxia Qualified Codes: J96.01 - Acute respiratory failure with hypoxia Assessment & Plan: BiPAP requiring post op - Pulm edema and likely aspiration pneumonia. (3) Pulmonary edema Status: Acute Qualifiers: Chronicity: acute Qualified Codes: J81.0 - Acute pulmonary edema (4) Aspiration pneumonia Status: Acute Qualifiers: Laterality: right Lung location: lower lobe of lung Assessment & Plan: Suspect aspiration (5) Hyperkalemia Onset Date: ~ 10/2016 Status: Acute Assessment & Plan: Not POA (6) REJI (acute kidney injury) Status: Acute (7) Congestive heart failure Status: Chronic Qualifiers: Congestive heart failure type: unspecified congestive heart failure type Congestive heart failure chronicity: chronic Qualified Codes: I50.9 - Heart failure, unspecified (8) Atrial fibrillation Status: Chronic (9) Hypertension Status: Chronic (10) Constipation Status: Chronic (11) Hypothyroidism Status: Chronic (12) Dementia Status: Chronic (13) Anxiety Status: Chronic (14) Raynauds syndrome Status: Chronic Qualifiers: Raynaud?s-associated gangrene presence: without gangrene Qualified Codes: I73.00 - Raynaud's syndrome without gangrene (15) Spinal stenosis Status: Chronic (16) Kyphosis Status: Chronic (17) Scoliosis Status: Chronic (18) Pacemaker Status: Chronic (19) Anemia Status: Chronic Qualifiers: Anemia type: unspecified type Qualified Codes: D64.9 - Anemia, unspecified (20) Hx-TIA (transient ischemic attack) Status: Chronic (21) H/O: compression fracture of spine Status: Resolved Assessment & Plan: Chronic back pain secondary. (22) Gait instability Status: Chronic (23) Hypernatremia Status: Resolved Assessment & Plan: POA Assessment Impression and plan Right hip fracture status post right hemiarthroplasty on 11/07/2016 Acute hypoxic respiratory failure requiring BiPAP initially and now on 3 and half to 4 L per nasal cannula-incentive spirometer as able, titrate oxygen as able Pulmonary edema-resolved, continue to monitor Aspiration pneumonia right lower lobe with pneumonia versus atelectasis left lower lobe-day to Rocephin and clindamycin Acute kidney injury-stable with good urine output-monitor urine output, avoid nephrotoxins, recheck lab tomorrow A. fib with RVR-continue IV digoxin, add IV beta diane if needed Hypertension-fair control Dysphagia-unable to give by mouth meds at this time-speech therapy to reassess when the patient is more alert Dementia with encephalopathy-decrease Haldol to 1 mg IV every 6 hours when necessary, the patient was on Ativan as needed prior to admission and will continue this as needed. Give Tylenol for pain and hopefully be able to decrease morphine use Recent TIA-prior to admission-discussed with Dr. Junior, will give aspirin per rectum until she can take oral aspirin Acute blood loss anemia-current hemoglobin of 9.9 and was 14.1 yesterday Leukocytosis-improving Hypernatremia-resolved Hyperkalemia-resolved Discussed with the patient's nurse, the patient's son Maik, and with Dr. Junior. Greater than 1 hour of time spent seeing and evaluating the patient, reviewing the chart, and discussing with family and health analytics consultant. Code Status Do Not Resuscitate Hospital Course Summary Disclaimer The hospital course summary below is not to be considered part of the above Progress Note. Hospital Course Summary 11/06 Admit patient to inpatient status under the care of Dr. Aviles Orthopedic consultation to Dr. Junior for further recommendations and treatment, at this point, we are planning for surgery tomorrow . 11/07 Did review admission laboratory studies WBC count is slightly up at 12.2 and hemoglobin is stable at 13.9. Patient was hypertensive and tachycardic initially. It is reported by her son that she did miss her morning beta diane. Patient given Lopressor 5 grams IV 1 now, will continue as needed every 6 hours for a rate over 120. Monitor on cardiac telemetry Did place order for speech therapy to eval for dysphasia. If more alert and approved by speech therapy, patient may have a regular diet. Patient nothing by mouth at midnight Postoperatively will utilize MiraLAX and senna to avoid constipation Ann catheter to dependent drainage Postoperatively will follow blood counts to monitor for postoperative anemia Had in-depth discussion with patient's son at the bedside. He does verbalize wishes for do not resuscitate and doesn't for size desire of patient and family is very conservative treatment. At time of discharge medical care will return to primary care provider. Dr. Thania Alvarado in [place] 11/07 OP Day - Right hip hemiarthroplasty by Dr Junior Tolerated Sx, but very hypoxic post op. Needing BiPAP to help improve saturations. Did wire bender about 1500 cc fluid during Sx. Post op CXR reporting infiltrate, but I suspect by have component of pulmonary edema. Restless post op. Ativan helping. Family members at bedside helping to calm pt. BiPAP for respiratory support, wean as able. Will start Rocephin and continue Clindamycin (given pre op and to receive 3 doses post op) for coverage of potential aspiration pneumonia. Lasix 20mg IV give post op for pulmonary edema. Continue 1/2 NS at 75cc/hr to help maintain hydration, monitoring volume status. Control agitation with Haldol and Ativan as needed. With pt's dementia, due suspect encephalopathy will be a challenge post op. Will change digoxin to IV as worry pt will not be able to take oral well. Continue SCD; Lovenox started post op and will need for 30 days after Sx. Restart ASA therapy used for stroke prevention - non chronically anticoagulated due to fall risk. Recheck BMP in am to monitor electrolytes and renal status. Repeat CBC in am due to leukocytosis and to monitor blood counts. BiPAP for respiratory support, wean as able. Will start Rocephin and continue Clindamycin (given pre op and to receive 3 doses post op) for coverage of potential aspiration pneumonia. Lasix 20mg IV give post op for pulmonary edema. Continue 1/2 NS at 75cc/hr to help maintain hydration, monitoring volume status. Control agitation with Haldol and Ativan as needed. With pt's dementia, due suspect encephalopathy will be a challenge post op. Will change digoxin to IV as worry pt will not be able to take oral well. Continue SCD; Lovenox started post op and will need for 30 days after Sx. Restart ASA therapy used for stroke prevention - non chronically anticoagulated due to fall risk. Recheck BMP in am to monitor electrolytes and renal status. Repeat CBC in am due to leukocytosis and to monitor blood counts. Case discussed with CM and family. Time spent with pt care 35 minutes. YONATAN BRODY MD Nov 08, 2016 10:16
--- NOTE | 2016-11-08 11:40 | CONSPD ---
Consultation Info Date DATE: 11/08/16 TIME: 11:35 Impression/Recommendation Impression/Recommendation: (1) Fracture of hip, right, closed Status: Acute Qualifiers: Encounter type: initial encounter Qualified Codes: S72.001A - Fracture of unspecified part of neck of right femur, initial encounter for closed fracture Recommendation: P/O day #1 of right hip endoprosthesis Lovenox 40mg SQ Q day for a total of 30 days post op for DVT prevention mobilize as can tolerate given overall mental status and medical issues pain control and bowel motivation medical management. (2) Osteopenia Status: Chronic Recommendation: Will check to see if Dr Alvarado did a DEXA. Will follow i 4 weeks as condition allows Ortho HPI HPI Elements Location: FOUND hip (right) Injury: Yes (fall at jail in her bathroom on 11/06/16) Pain: FOUND stabbing, FOUND sharp Onset: Sudden Radiating: No Severity: FOUND moderate Duration: FOUND 12-24 hours Previous Surgery: No Previous Injury: No Aggrevated by: FOUND all activity Associated Symptoms: FOUND weakness, FOUND swelling, FOUND sensation of giving way Treatments Tried: FOUND pain medications, FOUND rest, FOUND Tylenol X-ray Findings: FOUND femoral neck fracture (right) Recommendation: FOUND FHR HPI This is an 86 year old female who lives in jail in [facility] [place]. She fell while in the bathroom resulting in right hip pain and deformity. She was transferred to [facility] and evaluated by Dr. Thania Alvarado with X-ray revealing a hip fracture. Dr. 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 The X-rays, which were sent by disk are sub optimal, but appear to show a right femoral neck fracture. New films have been ordered for further evaluation. Her pain is presently located in the right hip, worse with movement better with rest and IV narcotics. Dr. Junior's plan is to take her to surgery tomorrow (11/07/16). Mrs. Sun's recent medical history is significant for osteoporosis, chronic A-fib with a pacemaker. Dr. Alvarado and family have anticoagulated only with ASA 325mg PO Q Day secondary to her being a high fall risk. She had a TIA on 11/03/16 with "a marked hypertensive response" with no residual effects according to Dr. Alvarado. Review of Systems Constitutional: DENIES: chills, fever Cardiovascular DENIES: chest pain Rhythm/Rate: irregular beat (A-fib) Vascular: DENIES: pallor of an extremity Pulmonary Respiratory: DENIES: cough, dyspnea GI Upper Abdomen: DENIES: pain Lower Abdomen: DENIES: pain General: DENIES: dysuria, frequency Musculoskeletal General: joint pain (right hip), pain, tenderness Integumentary Skin: DENIES: rash Neurological General: memory disturbances (dementia), weakness, DENIES: numbness Endocrine other (Neg for DM) Past Medical History Adult Past Medical History Patient History: (1) Wrist fracture, right Permanent Comment: Last Edited By: Antonio No on Nov 06, 2016 12: 37 (2) Atrial fibrillation (3) S/p left hip fracture Permanent Comment: Last Edited By: Antonio No on Nov 06, 2016 12:38 (4) H/O: compression fracture of spine Permanent Comment: T9, T12 Kyphoplasty by Dr. Morgan Last Edited By: Antonio No on Nov 06, 2016 12:38 (5) Fracture of hip, right, closed (6) Hx-TIA (transient ischemic attack) Permanent Comment: 11-03-16 Last Edited By: Antonio No on Nov 06, 2016 12: 40 Problem List Updates Recent TIA-11/03/16 Hypertension Anxiety Dementia Kyphosis Hypothyroidism Spinal stenosis Constipation Atrial fibrillation GERD per cholesterolemia Osteoporosis Ppolymyalgia rheumatica Anemia Congestive heart failure Surgical History Patient's Surgical History: breast biopsies 1969 (benign) right cataract removal D&C 1969, 1988 varicose vein stripping nasal septum repair pacemaker implantation right retinal surgery right eye buckle repair kyphoplasty T9, T12, T8, L3 Current Medications Acetaminophen (Tylenol) 325 Mg Tablet, 2 TAB PO HS PRN for PAIN/FEVER, (Reported ) Last Taken: Unknown Dose on 11/05/16 2100 Aspirin (Aspirin) 325 Mg Tablet, 1 TAB PO DAILY, (Reported) Last Taken: Unknown Dose on 11/05/16 0800 Aspirin (Aspirin) 325 Mg Tablet, 1 TAB PO BID, (Reported) Last Taken: Unknown Dose on Unknown Date & Time Bisacodyl (Dulcolax) 10 Mg Supp.rect, 1 SUPP RECTALLY PRN PRN for STOOL SOFTENING, (Reported) Last Taken: Unknown Dose on Unknown Date & Time Calcium Carbonate (Tums) 200 Mg Tab.chew, 1 TAB PO BID, (Reported) Last Taken: Unknown Dose on 11/05/16 1800 Calcium Carbonate/Vitamin D3 ( Caltrate 600 + D Tablet) 1 Each Tablet, 1 TAB PO DAILY, (Reported) Last Taken: Unknown Dose on 11/05/16 0800 Cholecalciferol (Vitamin D3) ( Vitamin D-3) 2,000 Unit Tablet, 1,000 UNIT PO DAILY, (Reported) Last Taken: Unknown Dose on 11/05/16 0800 Digoxin (Digox) 125 Mcg Tablet, 1 TAB PO DAILY, (Reported) Last Taken: Unknown Dose on 11/05/16 0800 Diphenhydramine HCl (Benadryl) 25 Mg Capsule, 1 CAP PO HS, (Reported) Last Taken: Unknown Dose on 11/05/16 2100 Hydrocodone/Acetaminophen (Jachin 5- 325 Tablet) 5-325 Tablet, 0.5-1 TAB PO TID PRN, (Reported) Last Taken: Unknown Dose on Unknown Date & Time Ibuprofen (Ibuprofen) 200 Mg Tablet, 1 TAB PO NOON, (Reported) Last Taken: Unknown Dose on 11/05/16 1200 Isosorbide Mononitrate (Isosorbide Mononitrate ER) 30 Mg Tab.er.24h, 1 TAB PO DAILY, (Reported) Last Taken: Unknown Dose on 11/05/16 0800 Levothyroxine Sodium (Synthroid) 25 Mcg Tablet, 1 TAB PO ACB, (Reported) BEST IF TAKEN BEFORE BREAKFAST Last Taken: Unknown Dose on 11/05/16 0600 Lisinopril (Prinivil) 20 Mg Tablet , 20 MG PO PRN PRN for HYPERTENSION, (Reported) Last Taken: Unknown Dose on Unknown Date & Time Lorazepam (Lorazepam) 0.5 Mg Tablet, 0.5 MG PO Q4HPRN PRN for ANXIETY, (Reported) Last Taken: Unknown Dose on Unknown Date & Time Melatonin (Melatonin) 3 Mg Tablet, 1 TAB PO HS, (Reported) Last Taken: Unknown Dose on 11/05/16 2100 Melatonin (Melatonin) 3 Mg Tablet, 1 TAB PO HS, (Reported) Last Taken: Unknown Dose on 3/14/17 2100 Menthol/Colloidal Oatmeal (Eucerin Calm Itch-Relief Lot) 200 Ml Lotion, 1 ML TOP for NEEDED, (Reported) Last Taken: Unknown Dose on Unknown Date & Time Mirtazapine (Remeron) 30 Mg Tablet, 30 MG PO HS, (Reported) Take 1 tablet, by mouth, one time a day (at bedtime). Last Taken: Unknown Dose on Unknown Date & Time Omeprazole Magnesium ( Prilosec Otc) 20 Mg Tablet.dr, 1 TAB PO HS, (Reported) Last Taken: Unknown Dose on 11/05/16 2100 Polyethylene Glycol 3350 (Miralax) 17 Gm Powd.pack, 1 PACKET PO DAILY, (Reported) Last Taken: Unknown Dose on 11/05/16 0800 Sennosides/Docusate Sodium (Senokot -S Tablet) 1 Each Tablet, 1 TAB PO BID, (Reported) Take 1 tablet, by mouth, 2 times a day. Last Taken: Unknown Dose on 11/05/16 1800 Sotalol HCl (Sotalol) 80 Mg Tablet , 40 MG PO TID, (Reported) Take 1 tablet, by mouth, 2 times a day (before meals). Last Taken: Unknown Dose on 11/05/16 1800 Sotalol HCl (Sotalol) 80 Mg Tablet , 0.5 TAB PO DAILY PRN for NEEDED, (Reported) Last Taken: Unknown Dose on Unknown Date & Time Trazodone HCl (Trazodone HCl ) 50 Mg Tablet, 50 MG PO WS, (Reported) Take 1 tablet, by mouth, one time a day (at BEDTIME). Last Taken: Unknown Dose on 11/05/16 1700 Allergies Allergies: Coded Allergies: amoxicillin (Verified Adverse Reaction, Unknown, diarrhea , 11/06/16) calcitonin (Verified Adverse Reaction, Unknown, muscle cramps, 11/06/16) ferrous sulfate (Verified Adverse Reaction, Unknown, abdominal pain, ) raloxifene (Verified Adverse Reaction, Unknown, abdominal cramps, 11/06/16) Uncoded Allergies: Amiodarone HCL (Adverse Reaction, Unknown, incoordination, rash, 11/06/16) Vitamin K (Adverse Reaction, Unknown, pain, 11/06/16) Family History Family History: Mother, sister-breast cancer father 70, of [place] Vaccines Social History Smoking Status: Never smoker Does patient use chewing tobac: No Second Hand Exposure: No Substance Use Type: does not use Alcohol Intake: none Marital Status: Sexuality: male partner Housing: jail Advance Directives: Yes DNR, Yes DPOA for Healthcare Only (ZONIA SUN) Physical Exam General General: well nourished, well developed, no acute distress Respiratory FOUND non-labored Cardiovascular FOUND pedal pulses intact Capillary Refill: <2 sec Abdomen Abdominal: FOUND soft Musculoskeletal Musculoskeletal Brief: FOUND: tenderness, Not FOUND: deformity Integumentary FOUND dry, FOUND pink, FOUND warm, NOT FOUND rash Neurologic FOUND intact to light touch, FOUND no deficits Psychiatric FOUND normal affect Laboratory Laboratory Tests Test 11/08/16 05:21 White Blood Count 12.7T/MM3 Red Blood Count 3.02M/MM3 Hemoglobin 9.9GM/DL Hematocrit 30.3% Mean Corpuscular Volume 100.3UM3 Mean Corpuscular Hemoglobin 32.8UUG Mean Corpuscular Hemoglobin Concent 32.7GM/DL RDW Standard Deviation 49.7FL Platelet Count 115T/MM3 Mean Platelet Volume 10.4UM3 Immature Granulocyte % (Auto) 0.2% Neutrophils (%) (Auto) 82.1% Lymphocytes (%) (Auto) 6.8% Monocytes (%) (Auto) 10.9% Eosinophils (%) (Auto) 0.0% Basophils (%) (Auto) 0.0% Absolute Immature Granulocyte (auto 0.02T/MM3 Absolute Neutrophils (auto) 10.5T/MM3 Absolute Lymphocytes (auto) 0.9T/MM3 Absolute Monocytes (auto) 1.4T/MM3 Absolute Eosinophils (auto) 0.0T/MM3 Absolute Basophils (auto) 0.0T/MM3 Turbidity < 20 Sodium Level 142MEQ/L Potassium Level 4.4MEQ/L Chloride Level 108MEQ/L Carbon Dioxide Level 25MEQ/L Anion Gap 9MEQ/L Blood Urea Nitrogen 45.0MG/DL Creatinine 1.3MG/DL Glomerular Filtration Rate Calc 39 BUN/Creatinine Ratio 35RATIO Glucose Level 137MG/DL Calculated Osmolality 287MOSM/KG Calcium Level 8.3MG/DL Icterus Index < 2 Chemistry Specimen Hemolysis < 15 Case Report- BMD Demographics Date of Initial Screening: Nov 08, 2016 Age 86 Date of Fracture: Nov 05, 2016 Race White Height (Feet): 5 Height (Inches): 6.00 Weight (Kilograms): 47.700 Site of Current Fracture Lower Limb: hip (proximal femur) Fracture History History of fracture age 50 or: Yes Fracture History: distal radius, thoracic spine, proximal femur Age at time of fractures wrist 80, spine and hip 82 Risk Factors Lifestyle Factors: history of falls (2 or more in preceding year) Medications at time of fractur: PPIs History of Rheumatoid Arthriti: No Secondary Osteoporosis d/t con: No Medication Use Nutritional Supplements: calcium, vitamin d Treatment/Counseling Calcium 1200 mg/day (in divide: yes Vitamin D at least 800-1000 IU: yes Regular Weight Bearing and Mus: yes Fall Prevention: yes Smoking Cessation: yes Alcohol Comsumption (no more t: yes Pharmacologic Treatment Recomend Pharmacologic Therapy: No Therapy not recommended due to: bone health assessment ongoing Pharmacologic Therapy Initiate: No Reason Not Initiating Therapy: tx planned for near future Bone Mineral Density Testing Was BMD Testing Recommended?: Yes BMD Testing: planned/scheduled Additional Information Comments Patient not very responsive today. Took information from her son and by review of chart KATELIN COSTA MD Nov 08, 2016 11:39
--- NOTE | 2016-11-08 13:48 | STEVAL ---
Eval Subjective and History Date/Time of Eval DATE: 11/08/16 TIME: 13:15 Medical Diagnosis R hip fracture due to fall Treatment Order: Assessment, Dev./Imp. tx plan Orientations: Alert (drowsy) Primary Complaint: S/P R hip fx repair Pain: Yes (on pain meds) Date of Onset of Primary Com: 11/06/16 Secondary Complaint: Dysphagia Prior History of This Problem: No Patient's Goals: Pt did not express her goals Significant Past Medical Hx: Recent TIA-11/03/16 Hypertension Anxiety Dementia Kyphosis Hypothyroidism Spinal stenosis Constipation Atrial fibrillation GERD per cholesterolemia Osteoporosis Ppolymyalgia rheumatica Anemia Congestive heart failure Medical History Form Reviewed: Yes Residence Type: Assisted ([facility]) Prior Functional Status: The RN at [facility] reported that Paty was on a regular diet with crushed meds in applesauce prior to this hospitalization. Current Functional Status: Paty has been agitated and anxious, requiring Ativan. She arouses with brief eye opening, however drowsy. She follows basic commands when fully alert. 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 Patient was agreeable to evaluation. Subjective and History Comment: The pts son, Sedrick was present for this evaluation. Sedrick was holding his mother's hand throughout the evaluation to help calm her. Dysphagia Evaluation Evaluation Location: Bed Evaluation Angle: 80 Comment Pt required head support to facilitate a chin tuck position when swallowing. Oral Peripheral Exam-facial: Facial Symmetry: No Impairment (WFL) Tongue Elevation: Mild Impairment Tongue Lateralization: Mild Impairment Tongue Protrusion: Mild Impairment Tongue Retraction: Minimal Impairment Tongue Extension Midline: No Impairment (WFL) Labial Approximation: Minimal Impairment Intraoral Air Pressure: Unable to Elicit Volitional Cough: Minimal Impairment Larynx Elevation During Swallo: Minimal Impairment Saliva Control: No Impairment (WFL) Dentition: Dentures Oral Peripheral Exam Comment: Pt was drowsy but alerted briefly to follow commands. She presents with generalized oral motor weakness. Her vocal quality is dry and clear. Oral care was provided to moisten the oral cavity. Weak lingual movements were observed. Minimally decreased laryngeal elevation was palpated. Lip Seal: Adequate-liquid (syrup), Inadequate-liquid (thin), Adequate-pudding Lingual Manipulation: Adequate-liquid (syrup), Inadequate-liquid (thin), Adequate-pudding Oral cavity clear post swallow: Adequate-liquid (thin and syrup), Inadequate- pudding (mild residue noted) Swallow initiated w/o delay: Adequate-liquid, Adequate-pudding Multiple swallows not needed: Adequate-liquid (syrup), Inadequate-liquid (thin) , Inadequate-pudding Voice clear&dry post swallow: Adequate-liquid (syrup), Inadequate-liquid (thin) , Inadequate-pudding No cough/throat clear: Inadequate-liquid (thin), Inadequate-pudding Comments Pt was assessed with 1/2 tsp. trials off syrup this juice, thin water, and pudding. Assessment/Plan of Care Speech Therapy Impressions: Pt presents with moderate Oropharyngeal Dysphagia characterized by decreased lingual strength and range of motion. She demonstrated decreased laryngeal elevation with trials of thin water with audible gulp and immediate throat clearing. Liquid loss from the mouth was noted. Pt was cued to use a chin tuck and secondary dry swallows. Pt tolerated 1/2 tsp size trials of syrup thick cranberry juice with improved oral control of the bolus, a timely swallow response and decreased laryngeal elevation. No cough or throat clearing elicited. Pt was cued to use a secondary dry swallow. Voicing was clear. Pt demonstrated adequate oral control of the pudding trials however, due to decreased laryngeal elevation, suspect pooling of the bolus at the level of the piriform sinuses. Immediate throat clearing was noted. Recommend trials of syrup thick liquids when pt is fully alert using the following dysphagia precautions: 1. pt must be upright at 80 degrees for all trials and fully alert, 2. use a chin tuck when swallowing, 3. use a secondary dry swallow in between sips 4. crush meds and present in applesauce Make Up Editor Goal: Pt will maintain nutrition and hydration of the least restrictive diet while demonstrating no s/s of aspiration for [3] consecutive trials. Short Term Goal: Pt will consume a [mechanical soft] consistency with [regular] liquids without outward signs of aspiration at bedside in 85% of trials. Pt will demonstrate [3] out of [3] components necessary for a safe swallow as listed from the following [1. HOB at 90 degrees for all trials, 2. use chin tuck, 3. use secondary dry swallow]. ST Treatment Plan: Modified Diet ST Treatment Plan Frequency: five times per week Treatment Plan Duration: one week Plan of Care Comment Pt will receive ST services for dysphagia. Recommended Diet: Full liquid diet / syrup thick consistency May give Mighty Shakes and Magic Cup Date of Visit 11/08/16 Time Visit Began: 12:35 Time Visit Ended: 13:00 ST Assess/Plan of Care: ST Treatment Charge: Swallow Eval Minutes of Individual Therapy: 25 PRESTON JOE MA Nov 08, 2016 13:19
--- NOTE | 2016-11-08 13:49 | NUR ---
SPEECH THERAPY: DYSPHAGIA EVALUATION Pt must be fully alert for all po trials. Pt at increased risk of aspiration, especially with thin and pudding consistencies at this time. Pt tolerated syrup consistency without s/s of aspiration. Pt may have trials of full liquid diet thickened to syrup consistency. Mighty Shake and Magic Cup items are acceptable and would provide additional nutrition. Please use the following precautions: 1. HOB increased to 90 degrees, 2. small sips at slow rate 3. cue pt to use a chin tuck and when swallowing and follow up with a dry swallow, 4. D/C all po trials if pt is drowsy or presents with coughing,throat clearing or wet vocal quality. Please crush meds and give in applesauce when pt is alert, using precautions. See full report in EMR under other reports.
--- NOTE | 2016-11-08 14:56 | NUR ---
LINO HUYNH IN TO VISIT WITH PT. SHE IS UNABLE TO PARTICIPATE IN DC PLANNING. HER OLDEST SON IS PRESENT. HE CONFIRMS THAT PT RESIDES AT [facility] AND PLANS TO RETURN THERE UPON DC. VM IS LEFT FOR ASHLIE AT [facility] TO UPDATE HER. Addendum: 11/08/16 at 1458 by KARENA DOWD RN Amended: Links added.
[2016-11-08] MEDS ORDERED: ACETAMINOPHEN 650 MG SUPPOSITORY RECTALLY SCH (15:00)
--- NOTE | 2016-11-08 15:31 | NUR ---
CM PER PHONE CONVERSATION WITH ASHLIE FROM [facility], THEY ANTICIPATE PT RETURN TO THEIR FACILITY WHEN MEDICALLY STABLE. CM CAN SPEAK WITH DARIEN AT [facility] ON FRIDAY WITH UPDATE.
[2016-11-08] MEDS ORDERED: ASPIRIN 300 MG RECTAL SUPPOSITORY RECTALLY SCH (17:00)
[2016-11-08] MEDS: HALOPERIDOL 5 MG/ML INJECTION IV PRN (18:56)
[2016-11-08] MEDS ORDERED: ACETAMINOPHEN 650 MG SUPPOSITORY RECTALLY PRN (20:15)
[2016-11-09] VITALS (9 sets, daily range): BP systolic 95–168; BP diastolic 55–109; PULSE 102–118; RESP 18–22; TEMP 96.8–98.6; O2SAT 82–97
[2016-11-09] MEDS: ENOXAPARIN 40 MG/0.4 ML INJECTION SQ SCH ×2 (01:50→20:36)
[2016-11-09] MEDS: NOZIN NASAL SWAB NS SCH ×3 (01:50→18:13)
[2016-11-09] MEDS: CLINDAMYCIN 600mg IVPB 50 ML IV SCH ×3 (03:17→18:14)
[2016-11-09 06:33] LABS: BASOPHILS % (AUTO) 0.1 % (0-2); EOSINOPHILS % (AUTO) 0.2 % (0-4); HCT - HEMATOCRIT 32.5 % (36-46); HGB - HEMOGLOBIN 10.8 GM/DL (12-16); IMMATURE GRANULOCYTE # (AUTO) 0.03 T/MM3 (0.00-0.03); IMMATURE GRANULOCYTE % (AUTO) 0.2 % (0.0-0.5); LYMPHOCYTES # (AUTO) 1.3 T/MM3 (1-4.8); LYMPHOCYTES % (AUTO) 9.5 % (23-45); MEAN CORPUSCULAR HGB 32.9 UUG (26-34); MEAN CORPUSCULAR HGB CONC(MCHC 33.2 GM/DL (31-37); MEAN CORPUSCULAR VOLUME 99.1 UM3 (80-100); MEAN PLATELET VOLUME 11.4 UM3 (9.4-12.4); MONOCYTES # (AUTO) 1.5 T/MM3 (0-0.8); NEUTROPHILS #(AUTO)-ABSOLUTE 10.8 T/MM3 (1.8-7.7); RED BLOOD COUNT 3.28 M/MM3 (4.00-5.20); WBC - WHITE BLOOD COUNT 13.6 T/MM3 (4.5-11.0)
--- NOTE | 2016-11-09 07:21 | NUR ---
Summary Pts VS have been stable on 2L NC. Repositioning done Q2hrs. Ann in place with adequate output. Pt has denied nausea and pain. Pt required 1:1 throughout the night due to confusion. Pt wanted to be assisted up to the chair. Pt was assisted up to chair X2 with gait belt. Pt stayed in chair for 30 minutes and requested to go back to bed. Side rails up X2, call light w/in reach, bed alarm on. Dressing to right hip c/d/i.
[2016-11-09] MEDS: LEVOTHYROXINE 25 MCG TABLET PO SCH (07:56)
[2016-11-09] MEDS: ASPIRIN 325 MG TABLET PO SCH ×2 (07:56→20:33)
[2016-11-09] MEDS: CHOLECALCIFEROL 1,000 UNIT TABLET PO SCH (07:56)
[2016-11-09] MEDS: CEFTRIAXONE 1 G in NORMAL SALINE 100 ML IV SCH (07:56)
[2016-11-09] MEDS: CALCIUM 600mg + VIT D 400 TABLET PO SCH (07:56)
[2016-11-09] MEDS: POLYETHYL.GLYCOL 3350 PACKET 17gm PO SCH (07:56)
[2016-11-09] MEDS: CALCIUM CARBONATE 500mg Chewable TAB PO SCH ×2 (07:56→20:33)
[2016-11-09] MEDS: ISOSORBIDE MONONITRATE ER 30 MG TABLET PO SCH (07:57)
[2016-11-09] MEDS: DIGOXIN 125 MCG TABLET PO SCH (07:57)
[2016-11-09] MEDS: SOTALOL 80 MG TABLET PO SCH ×3 (07:57→20:35)
[2016-11-09] MEDS: HYDROCODONE/APAP 5 mg/325 mg TABLET PO PRN ×3 (07:58→20:46)
[2016-11-09 09:02] LABS: ANION GAP 8 MEQ/L (5-15); BUN/CREATININE RATIO 47 RATIO (6-26); CALCIUM 8.7 MG/DL (8.4-10.2); CHLORIDE 107 MEQ/L (98-107); CO2 - CARBON DIOXIDE 25 MEQ/L (22-30); CREATININE 0.9 MG/DL (0.7-1.2); GLOMERULAR FILTRATION RATE 59; GLUCOSE 96 MG/DL (65-110); POTASSIUM 4.3 MEQ/L (3.6-5); SODIUM 140 MEQ/L (134-144)
[2016-11-09] MEDS: MORPHINE SULFATE 2 MG SYRINGE IV PRN ×2 (09:15→18:51)
[2016-11-09] MEDS: LORAZEPAM 2 MG/ML INJECTION IV PRN ×3 (09:15→18:49)
[2016-11-09 09:29] LABS: PHOSPHORUS 2.4 MG/DL (2.5-4.5)
--- NOTE | 2016-11-09 11:22 | DI ---
Indication: ITS.REASON: PRODUCTIVE COUGH; WET BREATH SOUNDS PROCEDURE: CHEST 1 VIEW: Encounter: Initial Comparison: November 08, 2016 and November 07, 2016 Findings: Bilateral mid to lower lung field infiltrates are similar. No pneumothorax. Emphysema. Small pleural effusions. Cardiac silhouette remains mild to moderately enlarged. Pulmonary vascularity is prominent but unchanged. Left pacemaker. Scoliosis with multiple treated compression fractures in the thoracolumbar spine. Impression: Mild to moderate pulmonary edema. Lower lobe airspace opacities could be due to the edema though superimposed pneumonia or aspiration is also possible. Overall the appearance is not significantly changed from the most recent comparison but the edema has improved since November 07. .
[2016-11-09] MEDS ORDERED: BISACODYL 10 MG SUPPOSITORY RECTALLY PRN (17:00)
[2016-11-09] MEDS ORDERED: FUROSEMIDE 20 MG/2 ML INJECTION IV ONE (17:00)
[2016-11-09] MEDS ORDERED: BISACODYL 10 MG SUPPOSITORY RECTALLY ONE (17:00)
--- NOTE | 2016-11-09 17:54 | PNPDOC ---
Subjective Date DATE: 11/09/16 TIME: 17:45 Subjective The patient is seen in her room accompanied by her son and her nurse. She is anxious this afternoon. She denies any pain. She denies any shortness of breath. She denies nausea. She does admit to being thirsty and hungry. She has not had a bowel movement this hospital course. She does have a Ann catheter. She has been eating and drinking better today. She was able to be weaned down to 1.5 L of oxygen per nasal cannula. Her nurse tried going to room air but her saturation dropped to 82%. Objective Vital Signs Vital signs Vital Signs Date Time Temp Pulse Resp B/P Pulse Ox O2 Delivery O2 Flow Rate FiO2 11/09/16 16:50 82 Room Air 11/09/16 16:49 98.0 111 20 140/76 1.50 11/08/16 16:04 100 I&O yesterday 2140/575 Overall, weight is up 3 kg since admission GEN-alert, confused, mildly agitated HEENT-sclera anicteric, oropharynx is moist NECK-supple CV-borderline tachycardic rate CHEST-crackles in the bases ABD-soft, mild to moderate distention, nontender, positive bowel sounds, moderate tympany -Ann in place with good urine output EXT-no edema NEURO-no focal deficits, significant for chronic confusion and mild acute agitation SKIN-warm and dry Height (Feet): 5 Height (Inches): 6.00 Weight (Kilograms): 49.500 Laboratory Laboratory Laboratory Tests 11/08/16 05:21 11/09/16 05:33 Laboratory Tests 11/08/16 05:21 11/09/16 05:33 Radiology X-ray today on my read and per radiology shows mild to moderate pulmonary edema which is improving and continued bilateral lower lobe opacities possible edema versus pneumonia Assessment & Plan Problems: (1) Hip fracture, right Status: Acute Qualifiers: Encounter type: initial encounter Fracture type: closed Qualified Codes: S72.001A - Fracture of unspecified part of neck of right femur, initial encounter for closed fracture Assessment & Plan: Right displaced subcapital femoral neck fracture. 11/07: Right hip hemiarthroplasty. (2) Acute respiratory failure Status: Acute Qualifiers: Respiratory failure complication: hypoxia Qualified Codes: J96.01 - Acute respiratory failure with hypoxia Assessment & Plan: BiPAP requiring post op - Pulm edema and likely aspiration pneumonia. (3) Pulmonary edema Status: Acute Qualifiers: Chronicity: acute Qualified Codes: J81.0 - Acute pulmonary edema (4) Aspiration pneumonia Status: Acute Qualifiers: Laterality: right Lung location: lower lobe of lung Assessment & Plan: Suspect aspiration (5) Hyperkalemia Onset Date: ~ 10/2016 Status: Acute Assessment & Plan: Not POA (6) REJI (acute kidney injury) Status: Acute (7) Congestive heart failure Status: Chronic Qualifiers: Congestive heart failure type: unspecified congestive heart failure type Congestive heart failure chronicity: chronic Qualified Codes: I50.9 - Heart failure, unspecified (8) Atrial fibrillation Status: Chronic (9) Hypertension Status: Chronic (10) Constipation Status: Chronic (11) Hypothyroidism Status: Chronic (12) Dementia Status: Chronic (13) Anxiety Status: Chronic (14) Raynauds syndrome Status: Chronic Qualifiers: Raynaud?s-associated gangrene presence: without gangrene Qualified Codes: I73.00 - Raynaud's syndrome without gangrene (15) Spinal stenosis Status: Chronic (16) Kyphosis Status: Chronic (17) Scoliosis Status: Chronic (18) Pacemaker Status: Chronic (19) Anemia Status: Chronic Qualifiers: Anemia type: unspecified type Qualified Codes: D64.9 - Anemia, unspecified (20) Hx-TIA (transient ischemic attack) Status: Chronic (21) H/O: compression fracture of spine Status: Resolved Assessment & Plan: Chronic back pain secondary. (22) Gait instability Status: Chronic (23) Hypernatremia Status: Resolved Assessment & Plan: POA Assessment 11/09/2016 Impression and plan Right hip fracture status post right hemiarthroplasty on 11/07/2016 Acute hypoxic respiratory failure requiring BiPAP initially and now down to 1.5 L, titrate oxygen as able Pulmonary edema-improving, will give Lasix 20 mg IV 1 now Aspiration pneumonia right lower lobe with pneumonia versus atelectasis left lower lobe-day 3 Rocephin and clindamycin Acute kidney injury-improved, urine output okay A. fib with RVR/sinus tachycardia-continue digoxin and sotalol Hypertension-fair control Dysphagia-better today, continue to encourage oral intake Dementia with encephalopathy-Haldol as needed, control pain with Tylenol first and narcotics if needed Recent TIA-prior to admission-restart oral aspirin 325 by mouth twice a day Acute blood loss anemia-improved today with hemoglobin 10.8 Leukocytosis-improving overall Hypernatremia-resolved Hyperkalemia-resolved Mild abdominal distention with tympany-possible mild ileus-give Dulcolax suppositories, if no better tomorrow consider KUB CBC and basic metabolic profile tomorrow. DC IV fluids. Lasix 20 mg IV 1 now. Continue supportive care. Greater than 35 minutes of time spent seeing and evaluating the patient today in determining care plan. DVT Prophylaxis: Lovenox Code Status Do Not Resuscitate Hospital Course Summary Disclaimer The hospital course summary below is not to be considered part of the above Progress Note. Hospital Course Summary 11/06 Admit patient to inpatient status under the care of Dr. Aviles Orthopedic consultation to Dr. Junior for further recommendations and treatment, at this point, we are planning for surgery tomorrow . 11/07 Did review admission laboratory studies WBC count is slightly up at 12.2 and hemoglobin is stable at 13.9. Patient was hypertensive and tachycardic initially. It is reported by her son that she did miss her morning beta diane. Patient given Lopressor 5 grams IV 1 now, will continue as needed every 6 hours for a rate over 120. Monitor on cardiac telemetry Did place order for speech therapy to eval for dysphasia. If more alert and approved by speech therapy, patient may have a regular diet. Patient nothing by mouth at midnight Postoperatively will utilize MiraLAX and senna to avoid constipation Ann catheter to dependent drainage Postoperatively will follow blood counts to monitor for postoperative anemia Had in-depth discussion with patient's son at the bedside. He does verbalize wishes for do not resuscitate and doesn't for size desire of patient and family is very conservative treatment. At time of discharge medical care will return to primary care provider. Dr. Thania Alvarado in [place] 11/07 OP Day - Right hip hemiarthroplasty by Dr Junior Tolerated Sx, but very hypoxic post op. Needing BiPAP to help improve saturations. Did primer supervisor about 1500 cc fluid during Sx. Post op CXR reporting infiltrate, but I suspect by have component of pulmonary edema. Restless post op. Ativan helping. Family members at bedside helping to calm pt. BiPAP for respiratory support, wean as able. Will start Rocephin and continue Clindamycin (given pre op and to receive 3 doses post op) for coverage of potential aspiration pneumonia. Lasix 20mg IV give post op for pulmonary edema. Continue 1/2 NS at 75cc/hr to help maintain hydration, monitoring volume status. Control agitation with Haldol and Ativan as needed. With pt's dementia, due suspect encephalopathy will be a challenge post op. Will change digoxin to IV as worry pt will not be able to take oral well. Continue SCD; Lovenox started post op and will need for 30 days after Sx. Restart ASA therapy used for stroke prevention - non chronically anticoagulated due to fall risk. Recheck BMP in am to monitor electrolytes and renal status. Repeat CBC in am due to leukocytosis and to monitor blood counts. BiPAP for respiratory support, wean as able. Will start Rocephin and continue Clindamycin (given pre op and to receive 3 doses post op) for coverage of potential aspiration pneumonia. Lasix 20mg IV give post op for pulmonary edema. Continue 1/2 NS at 75cc/hr to help maintain hydration, monitoring volume status. Control agitation with Haldol and Ativan as needed. With pt's dementia, due suspect encephalopathy will be a challenge post op. Will change digoxin to IV as worry pt will not be able to take oral well. Continue SCD; Lovenox started post op and will need for 30 days after Sx. Restart ASA therapy used for stroke prevention - non chronically anticoagulated due to fall risk. Recheck BMP in am to monitor electrolytes and renal status. Repeat CBC in am due to leukocytosis and to monitor blood counts. Case discussed with CM and family. Time spent with pt care 35 minutes. 11/08/2016 Impression and plan Right hip fracture status post right hemiarthroplasty on 11/07/2016 Acute hypoxic respiratory failure requiring BiPAP initially and now on 3 and half to 4 L per nasal cannula-incentive spirometer as able, titrate oxygen as able Pulmonary edema-resolved, continue to monitor Aspiration pneumonia right lower lobe with pneumonia versus atelectasis left lower lobe-day to Rocephin and clindamycin Acute kidney injury-stable with good urine output-monitor urine output, avoid nephrotoxins, recheck lab tomorrow A. fib with RVR-continue IV digoxin, add IV beta diane if needed Hypertension-fair control Dysphagia-unable to give by mouth meds at this time-speech therapy to reassess when the patient is more alert Dementia with encephalopathy-decrease Haldol to 1 mg IV every 6 hours when necessary, the patient was on Ativan as needed prior to admission and will continue this as needed. Give Tylenol for pain and hopefully be able to decrease morphine use Recent TIA-prior to admission-discussed with Dr. Junior, will give aspirin per rectum until she can take oral aspirin Acute blood loss anemia-current hemoglobin of 9.9 and was 14.1 yesterday Leukocytosis-improving Hypernatremia-resolved Hyperkalemia-resolved Discussed with the patient's nurse, the patient's son Maik, and with Dr. Junior. Greater than 1 hour of time spent seeing and evaluating the patient, reviewing the chart, and discussing with family and technical marketing consultant. YONATAN BRODY MD Nov 09, 2016 17:48
[2016-11-09] MEDS: NS 500 ML IV PRN (18:16)
[2016-11-09] MEDS: HALOPERIDOL 5 MG/ML INJECTION IV PRN (18:34)
--- NOTE | 2016-11-09 19:40 | NUR ---
END OF SHIFT REPORT A/O TO PERSON ONLY. PATIENT CHRONICALLY CONFUSED. AT TIMES, PATIENT CAN BE ARGUMENTATIVE/AGGRESSIVE WITH STAFF WITH CARES. PATIENT UP WITH ASSIST X2 STAND PIVOT WITH GB. PATIENT HAS FREQUENTLY WANTED IN THE CHAIR DURING THE SHIFT FOR POSITION CHANGES. REDDENED AREA ON BUTTOCK. MEPILEX DRESSING APPLIED BY THIS RN. CLEAN, DRY, INTACT. MEPILEX ON RIGHT HIP REPLACED TODAY DUE TO PATIENT REMOVING DRESSING. STERILE TECHNIQUE USED TO REAPPLY MEPILEX. PATIENT HAS PULLED OUT SEVERAL IVS DURING THE SHIFT. PATIENT HAS A 24 G IN RIGHT AC AND AND A MIDLINE IN RIGHT UPPER ARM THAT FLUSHES/ASPIRATES WELL. PILLS CRUSHED IN APPLESAUCE. IV ATIVAN, MORPHINE, AND HALDOL HAVE BEEN GIVEN FOR AGITATION, ANXIETY, HALLUCINATIONS, AND PAIN. WILL CONTINUE TO MONITOR.
--- NOTE | 2016-11-09 20:46 | NUR ---
STATUS PATIENT A/O TO [facility] ONLY.PATIENT IS AGITATED.PRN NORCO WAS GIVEN TO ALLEVIATE PAIN. PATIENT IS ABLE TO SLEEP IN BED QUIETLY. FAMILY AT BEDSIDE. CONTINUE TO MONITOR.
[2016-11-09] MEDS: OMEPRAZOLE 20 MG CAPSULE PO SCH (22:00)
[2016-11-10] VITALS (9 sets, daily range): BP systolic 106–153; BP diastolic 59–97; PULSE 90–114; RESP 16–20; TEMP 96–99.2; O2SAT 90–98
--- NOTE | 2016-11-10 01:55 | NUR ---
Chart Check 24 hour chart check completed
[2016-11-10] MEDS: NOZIN NASAL SWAB NS SCH ×3 (02:43→17:08)
[2016-11-10] MEDS: CLINDAMYCIN 600mg IVPB 50 ML IV SCH ×3 (02:44→18:41)
--- NOTE | 2016-11-10 05:10 | NUR ---
STATUS PATIENT IS RESTING IN BED QUIETLY DURING NIGHT. ON 1.5L O2 VIA NC. SOLER CATHETER PATENT AND DRAINING.ADEQUATE URINARY OUTPUT FROM SOLER. VVS . RAPID HEAR RATE 90-111.NO C/O CHEST PAIN,SOA,OR N/V.PATIENT REFUSED TO DRINK SYRUP /NECTAR WATER DURING NIGHT.CONTINUE TO MONITOR.
[2016-11-10] MEDS: LORAZEPAM 2 MG/ML INJECTION IV PRN ×2 (06:12→22:05)
[2016-11-10] MEDS: MORPHINE SULFATE 2 MG SYRINGE IV PRN (06:15)
[2016-11-10] MEDS: LEVOTHYROXINE 25 MCG TABLET PO SCH (06:19)
--- NOTE | 2016-11-10 06:20 | NUR ---
AGITATION PRN ACTIVIN AND HALDOL WAS GIVEN FOR SEVERE AGITATION. PRN MORPHINE WAS GIVEN FOR PAIN BY USING AGUILLON-JEAN FACES PAIN SCALE. PATIENT WAS TRYING TO PULL SOLER ,IV OUT. PATIENT TOOK GOWN AND EKG LEAD OFF. CONTINUE TO MONITOR.
[2016-11-10 06:23] LABS: HCT - HEMATOCRIT 31.5 % (36-46); HGB - HEMOGLOBIN 10.5 GM/DL (12-16); MEAN CORPUSCULAR HGB 32.9 UUG (26-34); MEAN CORPUSCULAR HGB CONC(MCHC 33.3 GM/DL (31-37); MEAN CORPUSCULAR VOLUME 98.7 UM3 (80-100); MEAN PLATELET VOLUME 10.7 UM3 (9.4-12.4); RED BLOOD COUNT 3.19 M/MM3 (4.00-5.20); WBC - WHITE BLOOD COUNT 12.7 T/MM3 (4.5-11.0)
[2016-11-10] MEDS: HALOPERIDOL 5 MG/ML INJECTION IV PRN (06:25)
[2016-11-10 06:36] LABS: ALBUMIN 3.1 G/DL (3.5-5.0); ANION GAP 10 MEQ/L (5-15); BUN/CREATININE RATIO 39 RATIO (6-26); CALCIUM 9.1 MG/DL (8.4-10.2); CHLORIDE 106 MEQ/L (98-107); CO2 - CARBON DIOXIDE 29 MEQ/L (22-30); CREATININE 0.9 MG/DL (0.7-1.2); GLOMERULAR FILTRATION RATE 59; GLUCOSE 95 MG/DL (65-110); MAGNESIUM 2.1 MG/DL (1.6-2.3); POTASSIUM 4.7 MEQ/L (3.6-5); SODIUM 145 MEQ/L (134-144)
[2016-11-10 06:54] LABS: BAND NEUTROPHILS # 0.4 T/MM3; EOSINOPHILS # (MANUAL) 0.1 T/MM3 (0-0.5); LYMPHOCYTES # (MANUAL) 0.6 T/MM3 (1-4.8); MONOCYTES # (MANUAL) 0.9 T/MM3 (0-0.8); NEUTROPHILS #(MANUAL)-ABSOLUTE 10.7 T/MM3 (1.8-7.7); TOTAL CELLS COUNTED 100 %
[2016-11-10 06:55] LABS: POIKILOCYTOSIS 1+
--- NOTE | 2016-11-10 07:53 | PDORTHOPN ---
Subjective Date DATE: 11/10/16 TIME: 07:51 Subjective P/O day #2 of right hip cemented endoprosthesis by Dr. Junior. She has been agitated and confused and picking at her dressing. She has nurse' s aide at her bedside this morning. She seems comfortable and complains only of being thirsty Objective Vital Signs Vital signs Vital Signs 11/09/16 11/09/16 11/09/16 11/09/16 20:00 20:00 20:35 22:00 Temp 97.1 Pulse 111 107 Resp 20 20 B/P 168/99 Pulse Ox 93 O2 Delivery Nasal Cannula Nasal Cannula O2 Flow Rate 1.50 1.50 11/10/16 11/10/16 00:00 04:00 Temp 96.0 98.2 Pulse 90 100 Resp 20 18 B/P 106/59 131/65 Pulse Ox 98 90 O2 Delivery Nasal Cannula Room Air O2 Flow Rate 1.50 Height (Feet): 5 Height (Inches): 6.00 Weight (Kilograms): 49.500 General General Appearance: Confused, No Acute Distress Cardiovascular (Brief) Cardiac: FOUND: calf easily compressible, calf soft, nontender, peripheral pulses intact Capillary Refill: <2 sec Musculoskeletal (Brief) Musculoskeletal Brief: FOUND: tenderness, Not FOUND: deformity Surgical Site Incision: FOUND: Mepilex dressing intact (lower end of dressing had rolled up, tape was applied to seal the area. No drainage.), no drainage Integumentary (Brief) Integumentary Brief: FOUND dry, FOUND pink, FOUND warm, NOT FOUND rash Neurologic (Brief) Neurological Brief: FOUND: extremities w/o deficits, neuro intact Psychiatric (Brief) Psychiatric Brief: FOUND: no acute distress Laboratory Laboratory Laboratory Tests 11/09/16 05:33 11/10/16 05:59 Laboratory Tests 11/09/16 05:33 11/10/16 05:59 Assessment & Plan Problems: (1) Fracture of hip, right, closed Status: Acute Qualifiers: Encounter type: initial encounter Qualified Codes: S72.001A - Fracture of unspecified part of neck of right femur, initial encounter for closed fracture Assessment & Plan: Continue PT and OT. Weightbearing as tolerated. Continue medical management per the hospitalist team. (2) Osteopenia Status: Chronic Assessment & Plan: Will check to see if Dr Alvarado did a DEXA. Will follow i 4 weeks as condition allows Hospital Course Summary Disclaimer The visit summary below is not to be considered part of the above Progress Note. Hospital Course 11/06 Admit patient to inpatient status under the care of Dr. Aviles Orthopedic consultation to Dr. Junior for further recommendations and treatment, at this point, we are planning for surgery tomorrow . 11/07 Did review admission laboratory studies WBC count is slightly up at 12.2 and hemoglobin is stable at 13.9. Patient was hypertensive and tachycardic initially. It is reported by her son that she did miss her morning beta diane. Patient given Lopressor 5 grams IV 1 now, will continue as needed every 6 hours for a rate over 120. Monitor on cardiac telemetry Did place order for speech therapy to eval for dysphasia. If more alert and approved by speech therapy, patient may have a regular diet. Patient nothing by mouth at midnight Postoperatively will utilize MiraLAX and senna to avoid constipation Ann catheter to dependent drainage Postoperatively will follow blood counts to monitor for postoperative anemia Had in-depth discussion with patient's son at the bedside. He does verbalize wishes for do not resuscitate and doesn't for size desire of patient and family is very conservative treatment. At time of discharge medical care will return to primary care provider. Dr. Thania Alvarado in [place] 11/07 OP Day - Right hip hemiarthroplasty by Dr Junior Tolerated Sx, but very hypoxic post op. Needing BiPAP to help improve saturations. Did energy audit advisor about 1500 cc fluid during Sx. Post op CXR reporting infiltrate, but I suspect by have component of pulmonary edema. Restless post op. Ativan helping. Family members at bedside helping to calm pt. BiPAP for respiratory support, wean as able. Will start Rocephin and continue Clindamycin (given pre op and to receive 3 doses post op) for coverage of potential aspiration pneumonia. Lasix 20mg IV give post op for pulmonary edema. Continue 1/2 NS at 75cc/hr to help maintain hydration, monitoring volume status. Control agitation with Haldol and Ativan as needed. With pt's dementia, due suspect encephalopathy will be a challenge post op. Will change digoxin to IV as worry pt will not be able to take oral well. Continue SCD; Lovenox started post op and will need for 30 days after Sx. Restart ASA therapy used for stroke prevention - non chronically anticoagulated due to fall risk. Recheck BMP in am to monitor electrolytes and renal status. Repeat CBC in am due to leukocytosis and to monitor blood counts. BiPAP for respiratory support, wean as able. Will start Rocephin and continue Clindamycin (given pre op and to receive 3 doses post op) for coverage of potential aspiration pneumonia. Lasix 20mg IV give post op for pulmonary edema. Continue 1/2 NS at 75cc/hr to help maintain hydration, monitoring volume status. Control agitation with Haldol and Ativan as needed. With pt's dementia, due suspect encephalopathy will be a challenge post op. Will change digoxin to IV as worry pt will not be able to take oral well. Continue SCD; Lovenox started post op and will need for 30 days after Sx. Restart ASA therapy used for stroke prevention - non chronically anticoagulated due to fall risk. Recheck BMP in am to monitor electrolytes and renal status. Repeat CBC in am due to leukocytosis and to monitor blood counts. Case discussed with CM and family. Time spent with pt care 35 minutes. 11/08/2016 Impression and plan Right hip fracture status post right hemiarthroplasty on 11/07/2016 Acute hypoxic respiratory failure requiring BiPAP initially and now on 3 and half to 4 L per nasal cannula-incentive spirometer as able, titrate oxygen as able Pulmonary edema-resolved, continue to monitor Aspiration pneumonia right lower lobe with pneumonia versus atelectasis left lower lobe-day to Rocephin and clindamycin Acute kidney injury-stable with good urine output-monitor urine output, avoid nephrotoxins, recheck lab tomorrow A. fib with RVR-continue IV digoxin, add IV beta diane if needed Hypertension-fair control Dysphagia-unable to give by mouth meds at this time-speech therapy to reassess when the patient is more alert Dementia with encephalopathy-decrease Haldol to 1 mg IV every 6 hours when necessary, the patient was on Ativan as needed prior to admission and will continue this as needed. Give Tylenol for pain and hopefully be able to decrease morphine use Recent TIA-prior to admission-discussed with Dr. Junior, will give aspirin per rectum until she can take oral aspirin Acute blood loss anemia-current hemoglobin of 9.9 and was 14.1 yesterday Leukocytosis-improving Hypernatremia-resolved Hyperkalemia-resolved Discussed with the patient's nurse, the patient's son Maik, and with Dr. Junior. Greater than 1 hour of time spent seeing and evaluating the patient, reviewing the chart, and discussing with family and business operations consultant. PING JUNIOR MD Nov 10, 2016 07:53
[2016-11-10 08:08] LABS: PHOSPHORUS 2.9 MG/DL (2.5-4.5)
[2016-11-10] MEDS: SOTALOL 80 MG TABLET PO SCH ×3 (08:31→21:46)
[2016-11-10] MEDS: CALCIUM 600mg + VIT D 400 TABLET PO SCH (08:31)
[2016-11-10] MEDS: CHOLECALCIFEROL 1,000 UNIT TABLET PO SCH (08:31)
[2016-11-10] MEDS: ASPIRIN 325 MG TABLET PO SCH ×2 (08:31→21:44)
[2016-11-10] MEDS: DIGOXIN 125 MCG TABLET PO SCH (08:31)
[2016-11-10] MEDS: ISOSORBIDE MONONITRATE ER 30 MG TABLET PO SCH (08:31)
[2016-11-10] MEDS: POLYETHYL.GLYCOL 3350 PACKET 17gm PO SCH (08:31)
[2016-11-10] MEDS: CEFTRIAXONE 1 G in NORMAL SALINE 100 ML IV SCH (08:32)
[2016-11-10] MEDS: CALCIUM CARBONATE 500mg Chewable TAB PO SCH ×2 (08:35→21:43)
[2016-11-10] MEDS: HYDROCODONE/APAP 5 mg/325 mg TABLET PO PRN (13:16)
--- NOTE | 2016-11-10 14:35 | PNPDOC ---
Subjective Date DATE: 11/10/16 TIME: 14:27 Subjective The patient is seen this morning accompanied by her son and her nurse. Her nurse states she is eating and drinking her full liquid diet with thickened liquids well and is asking for more food. Patient denies any pain. She denies shortness of breath. She has not had any vomiting. She had 2 bowel movements today. She has a Ann catheter in place. She is sitting up in a chair and is sleepy this afternoon. Objective Vital Signs Vital signs Vital Signs Date Time Temp Pulse Resp B/P Pulse Ox O2 Delivery O2 Flow Rate FiO2 11/10/16 14:22 103 11/10/16 13:11 98.3 18 146/97 96 Nasal Cannula 1.50 11/08/16 16:04 100 GEN-drowsy but arouses, no acute distress, pleasant HEENT-sclera anicteric, oropharynx is moist NECK-supple CV-irregularly irregular with a controlled rate CHEST-decreased breath sounds in the bases, no wheezes or rhonchi ABD-soft, mild distention, mild tympany, no tenderness, normal bowel sounds -Ann in place with good urine output EXT-no edema NEURO-significant for baseline dementia, no focal deficits SKIN-warm and dry and without rashes Height (Feet): 5 Height (Inches): 6.00 Weight (Kilograms): 49.500 Laboratory Laboratory Laboratory Tests 11/09/16 05:33 11/10/16 05:59 Laboratory Tests 11/09/16 05:33 11/10/16 05:59 Assessment & Plan Problems: (1) Hip fracture, right Status: Acute Qualifiers: Encounter type: initial encounter Fracture type: closed Qualified Codes: S72.001A - Fracture of unspecified part of neck of right femur, initial encounter for closed fracture Assessment & Plan: Right displaced subcapital femoral neck fracture. 11/07: Right hip hemiarthroplasty. (2) Acute respiratory failure Status: Acute Qualifiers: Respiratory failure complication: hypoxia Qualified Codes: J96.01 - Acute respiratory failure with hypoxia Assessment & Plan: BiPAP requiring post op - Pulm edema and likely aspiration pneumonia. (3) Pulmonary edema Status: Acute Qualifiers: Chronicity: acute Qualified Codes: J81.0 - Acute pulmonary edema (4) Aspiration pneumonia Status: Acute Qualifiers: Laterality: right Lung location: lower lobe of lung Assessment & Plan: Suspect aspiration (5) Hyperkalemia Onset Date: ~ 10/2016 Status: Acute Assessment & Plan: Not POA (6) REJI (acute kidney injury) Status: Acute (7) Congestive heart failure Status: Chronic Qualifiers: Congestive heart failure type: unspecified congestive heart failure type Congestive heart failure chronicity: chronic Qualified Codes: I50.9 - Heart failure, unspecified (8) Atrial fibrillation Status: Chronic (9) Hypertension Status: Chronic (10) Constipation Status: Chronic (11) Hypothyroidism Status: Chronic (12) Dementia Status: Chronic (13) Anxiety Status: Chronic (14) Raynauds syndrome Status: Chronic Qualifiers: Raynaud?s-associated gangrene presence: without gangrene Qualified Codes: I73.00 - Raynaud's syndrome without gangrene (15) Spinal stenosis Status: Chronic (16) Kyphosis Status: Chronic (17) Scoliosis Status: Chronic (18) Pacemaker Status: Chronic (19) Anemia Status: Chronic Qualifiers: Anemia type: unspecified type Qualified Codes: D64.9 - Anemia, unspecified (20) Hx-TIA (transient ischemic attack) Status: Chronic (21) H/O: compression fracture of spine Status: Resolved Assessment & Plan: Chronic back pain secondary. (22) Gait instability Status: Chronic (23) Hypernatremia Status: Resolved Assessment & Plan: POA Assessment 11/10/2016 Impression and plan Right hip fracture status post right hemiarthroplasty on 11/07/2016 Acute hypoxic respiratory failure requiring BiPAP initially and now down to 1.5 L, titrate oxygen as able Pulmonary edema-improved, Aspiration pneumonia right lower lobe with pneumonia versus atelectasis left lower lobe-day 4 Rocephin and clindamycin Acute kidney injury-improved, urine output good, creatinine stable A. fib with RVR/sinus tachycardia-continue digoxin and sotalol Hypertension-fair control Dysphagia-improving, reevaluate with speech therapy tomorrow Dementia with encephalopathy-encephalopathy is improving Recent TIA-prior to admission-continue oral aspirin 325 by mouth twice a day Acute blood loss anemia-stable Leukocytosis-improving overall Hypernatremia-resolved Hyperkalemia-resolved Constipation-resolved, continue MiraLAX daily CBC and basic metabolic profile tomorrow. Speech therapy to reevaluate swallow tomorrow PTT increased strengthening, patient will likely be ready for discharge in the next 1-2 days SANDRA Ann Discussed with patient's son Greater than 35 minutes of time spent seeing and evaluating the patient today in determining care plan. DVT Prophylaxis: Lovenox Code Status Do Not Resuscitate Hospital Course Summary Disclaimer The hospital course summary below is not to be considered part of the above Progress Note. Hospital Course Summary 11/06 Admit patient to inpatient status under the care of Dr. Aviles Orthopedic consultation to Dr. Junior for further recommendations and treatment, at this point, we are planning for surgery tomorrow . 11/07 Did review admission laboratory studies WBC count is slightly up at 12.2 and hemoglobin is stable at 13.9. Patient was hypertensive and tachycardic initially. It is reported by her son that she did miss her morning beta diane. Patient given Lopressor 5 grams IV 1 now, will continue as needed every 6 hours for a rate over 120. Monitor on cardiac telemetry Did place order for speech therapy to eval for dysphasia. If more alert and approved by speech therapy, patient may have a regular diet. Patient nothing by mouth at midnight Postoperatively will utilize MiraLAX and senna to avoid constipation Ann catheter to dependent drainage Postoperatively will follow blood counts to monitor for postoperative anemia Had in-depth discussion with patient's son at the bedside. He does verbalize wishes for do not resuscitate and doesn't for size desire of patient and family is very conservative treatment. At time of discharge medical care will return to primary care provider. Dr. Thania Alvarado in [place] 11/07 OP Day - Right hip hemiarthroplasty by Dr Junior Tolerated Sx, but very hypoxic post op. Needing BiPAP to help improve saturations. Did dental intern about 1500 cc fluid during Sx. Post op CXR reporting infiltrate, but I suspect by have component of pulmonary edema. Restless post op. Ativan helping. Family members at bedside helping to calm pt. BiPAP for respiratory support, wean as able. Will start Rocephin and continue Clindamycin (given pre op and to receive 3 doses post op) for coverage of potential aspiration pneumonia. Lasix 20mg IV give post op for pulmonary edema. Continue 1/2 NS at 75cc/hr to help maintain hydration, monitoring volume status. Control agitation with Haldol and Ativan as needed. With pt's dementia, due suspect encephalopathy will be a challenge post op. Will change digoxin to IV as worry pt will not be able to take oral well. Continue SCD; Lovenox started post op and will need for 30 days after Sx. Restart ASA therapy used for stroke prevention - non chronically anticoagulated due to fall risk. Recheck BMP in am to monitor electrolytes and renal status. Repeat CBC in am due to leukocytosis and to monitor blood counts. BiPAP for respiratory support, wean as able. Will start Rocephin and continue Clindamycin (given pre op and to receive 3 doses post op) for coverage of potential aspiration pneumonia. Lasix 20mg IV give post op for pulmonary edema. Continue 1/2 NS at 75cc/hr to help maintain hydration, monitoring volume status. Control agitation with Haldol and Ativan as needed. With pt's dementia, due suspect encephalopathy will be a challenge post op. Will change digoxin to IV as worry pt will not be able to take oral well. Continue SCD; Lovenox started post op and will need for 30 days after Sx. Restart ASA therapy used for stroke prevention - non chronically anticoagulated due to fall risk. Recheck BMP in am to monitor electrolytes and renal status. Repeat CBC in am due to leukocytosis and to monitor blood counts. Case discussed with CM and family. Time spent with pt care 35 minutes. 11/08/2016 Impression and plan Right hip fracture status post right hemiarthroplasty on 11/07/2016 Acute hypoxic respiratory failure requiring BiPAP initially and now on 3 and half to 4 L per nasal cannula-incentive spirometer as able, titrate oxygen as able Pulmonary edema-resolved, continue to monitor Aspiration pneumonia right lower lobe with pneumonia versus atelectasis left lower lobe-day to Rocephin and clindamycin Acute kidney injury-stable with good urine output-monitor urine output, avoid nephrotoxins, recheck lab tomorrow A. fib with RVR-continue IV digoxin, add IV beta diane if needed Hypertension-fair control Dysphagia-unable to give by mouth meds at this time-speech therapy to reassess when the patient is more alert Dementia with encephalopathy-decrease Haldol to 1 mg IV every 6 hours when necessary, the patient was on Ativan as needed prior to admission and will continue this as needed. Give Tylenol for pain and hopefully be able to decrease morphine use Recent TIA-prior to admission-discussed with Dr. Junior, will give aspirin per rectum until she can take oral aspirin Acute blood loss anemia-current hemoglobin of 9.9 and was 14.1 yesterday Leukocytosis-improving Hypernatremia-resolved Hyperkalemia-resolved Discussed with the patient's nurse, the patient's son Maik, and with Dr. Junior. Greater than 1 hour of time spent seeing and evaluating the patient, reviewing the chart, and discussing with family and apprenticeship consultant. 11/09/2016 Impression and plan Right hip fracture status post right hemiarthroplasty on 11/07/2016 Acute hypoxic respiratory failure requiring BiPAP initially and now down to 1.5 L, titrate oxygen as able Pulmonary edema-improving, will give Lasix 20 mg IV 1 now Aspiration pneumonia right lower lobe with pneumonia versus atelectasis left lower lobe-day 3 Rocephin and clindamycin Acute kidney injury-improved, urine output okay A. fib with RVR/sinus tachycardia-continue digoxin and sotalol Hypertension-fair control Dysphagia-better today, continue to encourage oral intake Dementia with encephalopathy-Haldol as needed, control pain with Tylenol first and narcotics if needed Recent TIA-prior to admission-restart oral aspirin 325 by mouth twice a day Acute blood loss anemia-improved today with hemoglobin 10.8 Leukocytosis-improving overall Hypernatremia-resolved Hyperkalemia-resolved Mild abdominal distention with tympany-possible mild ileus-give Dulcolax suppositories, if no better tomorrow consider KUB CBC and basic metabolic profile tomorrow. DC IV fluids. Lasix 20 mg IV 1 now. Continue supportive care. Greater than 35 minutes of time spent seeing and evaluating the patient today in determining care plan. YONATAN BRODY MD Nov 10, 2016 14:34
--- NOTE | 2016-11-10 17:45 | NUR ---
SUMMARY PT ORIENTED TO PERSON ONLY THROUGHOUT THIS SHIFT. PT UP IN CHAIR FOR THE MAJORITY OF THE SHIFT. PT TRANSFERS WITH PIVOT TRANSFER AND ASSIST X2, AND GAIT BELT. THIS RN ADMINISTERED MILK OF MAG THIS AM WITH SCHEDULED AM MEDS A BM HAD NOT RESULTED SINCE SUPPOSITORY WAS GIVEN YESTERDAY. PT DID HAVE TWO MODERATED SOFT BM'S THIS SHIFT. ADEQUATE OUTPUT NOTED IN URINARY CATHETER HOWEVER URINE APPEARED LIGHT SAIMA. SOLER CATHETER WAS DISCONTINUED THIS EVENING AND WAN CARE PERFORMED. PT TOLERATING A FULL LIQUID WITH NECTAR THICK LIQUIDS. NO COUGHING OR IMPAIRMENT IN SWALLOWING NOTED WITH ORAL INTAKE. PT'S FAMILY PRESENT IN ROOM THROUGHOUT SHIFT, WHICH ASSISTS WITH REORIENTATION. PT OCCASIONALLY ATTEMPTS TO GET OUT OF THE BED/CHAIR UPON WAKING FROM SLEEP AND/OR EARLY OR LATE IN THE SHIFT. SIGNS OF SUNDOWNERS NOTED. PT APPEARS TO BE INCREASINGLY AGITATED AROUND THE [id number] HOUR. PT EASILY REDIRECTED. THIS RN DID HAVE A FEW MEANINGFUL AND LUCID CONVERSATION. PT CURRENTLY UP IN CHAIR. CHAIR ALARM ON AND NURSE AIDE ASSISTING WITH FEEDING. WILL CONTINUE TO MONITOR CLOSELY.
--- NOTE | 2016-11-10 18:04 | NUR ---
OXYGEN THIS RN ATTEMPTED TO WEAN PT TO ROOM AIR AT THIS TIME. PT DROPPED INTO THE 88-89% RANGE WHEN O2 WAS REMOVED. PT UNABLE TO REMAIN ABOVE 90%. THIS RN INSTRUCTED PT TO COUGH AND TAKE IN SOME DEEP BREATHS. THIS RN PLACED O2 AT 1L VIA NC AGAIN AFTER UNABLE TO MAINTAIN O2 SATURATIONS. WILL CONTINUE TO MONITOR CLOSELY.
--- NOTE | 2016-11-10 18:34 | NUR ---
AMBULATION PT AMBULATED TO THE NURSES DESK AND BACK WITH THE ASSIST X2, GAIT BELT AND HER WALKER. PT REPOSITIONED BACK IN BED WITH THE ASSIST X2. HOB ELEVATED. PT DENIED PAIN OR SOA WITH AMBULATION. PT WAS BEARING WEIGHT ON OWN, WITHOUT THE ASSIST OF NURSING STAFF. BED ALARM ON. SIDE RAILS UP X2. WILL CONTINUE TO MONITOR.
[2016-11-10] MEDS: OMEPRAZOLE 20 MG CAPSULE PO SCH (21:43)
[2016-11-10] MEDS: ENOXAPARIN 40 MG/0.4 ML INJECTION SQ SCH (21:46)
--- NOTE | 2016-11-10 22:05 | NUR ---
PRN ATIVAN PATIENT AND FAMILY REQUESTED PRN ATIVAN BEFORE SLEEP TONIGHT FOR ANXIETY. 0.5 MG GIVEN. PATIENT RESTING QUIETLY. WILL CONTINUE TO MONITOR.
[2016-11-11] VITALS (7 sets, daily range): BP systolic 157–183; BP diastolic 90–107; PULSE 97–115; RESP 18–24; TEMP 97.9–98.6; O2SAT 92–93
[2016-11-11] MEDS: NOZIN NASAL SWAB NS SCH ×2 (01:07→08:40)
--- NOTE | 2016-11-11 01:26 | NUR ---
Chart Check 24 hour chart check completed
[2016-11-11] MEDS: CLINDAMYCIN 600mg IVPB 50 ML IV SCH ×2 (02:37→10:17)
[2016-11-11] MEDS: NS 500 ML IV PRN (02:38)
[2016-11-11] MEDS: HYDROCODONE/APAP 5 mg/325 mg TABLET PO PRN (04:38)
--- NOTE | 2016-11-11 05:14 | NUR ---
SHIFT SUMMARY PATIENT CONTINUES TO BE ORIENTED TO SELF ONLY THIS SHIFT. PATIENT IS A LITTLE HYPERTENSIVE AND TACHYCARDIC THIS SHIFT. OTHERWISE VITALS ARE STABLE ON ROOM AIR. PATIENT REPORTED SOME DISCOMFORT EARLY IN SHIFT, BUT WHEN PAIN MEDS WERE OFFERED PATIENT DENIED ANY PAIN AT THAT TIME. PATIENT HAS CONTINUED TO BE RESTLESS THROUGHOUT THE NIGHT PULLING OFF TELEMETRY AND UNDRESSING REPEATEDLY, WELL ATTEMPTING TO EXIT BED SEVERAL TIMES. MEPAPLEX WAS REPLACED AFTER PATIENT REMOVED. PATIENT LATER REPORTED DISCOMFORT IN THE RIGHT HIP, AND TWO PRN PAIN PILLS WERE ADMINISTERED. PATIENT CONTINUES TO REST FOR SHORT PEROIDS, BUT FREQUENT REORIENTATION HAS BEEN NECESSARY. WILL CONTINUE TO MONITOR PATIENT CLOSELY.
[2016-11-11 05:32] LABS: ANION GAP 8 MEQ/L (5-15); BUN/CREATININE RATIO 39 RATIO (6-26); CALCIUM 9.1 MG/DL (8.4-10.2); CHLORIDE 103 MEQ/L (98-107); CO2 - CARBON DIOXIDE 30 MEQ/L (22-30); CREATININE 0.8 MG/DL (0.7-1.2); GLOMERULAR FILTRATION RATE 68; GLUCOSE 124 MG/DL (65-110); POTASSIUM 3.6 MEQ/L (3.6-5); SODIUM 141 MEQ/L (134-144)
--- NOTE | 2016-11-11 05:49 | NUR ---
PROVIDER NOTIFICATION Notified Dr Estrada via [facility] of patient's Hgb result of 6.[address] Estrada directed to give unit of LRPRB that is ready in the lab. No response about premeds at this time. Awaiting direction. Will continue to monitor. Addendum: 11/11/16 at 0629 by JAMAL LIRA RN DISREGARD, WRONG PATIENT
[2016-11-11] MEDS: LEVOTHYROXINE 25 MCG TABLET PO SCH (07:03)
--- NOTE | 2016-11-11 07:42 | NUR ---
DRESSING/STATUS PUT ATTEMPTING TO GET OUT OF BED THIS AM. UPON ASSISTING PT TO CHAIR, THIS RN NOTED MEPILEX DRESSING TO RIGHT HIP ALMOST ALL THE WAY OFF. THIS RN REMOVED MEPILEX DRESSING AND APPLIED A NEW DRESSING TO RIGHT HIP USING CHLORAPREP CLEANSER. NO S/S OF BLEEDING NOTED FROM SITE. INCISION APPROXIMATED AND DRY. PT DENIES PAIN AT THIS TIME, HOWEVER HAS EXPRESSED WORRY FOR HER FAMILY THIS MORNING. THIS RN PLACED A CALL TO HER DAUGHTER MIKE. MIKE UNAVAILABLE AT THIS TIME, HOWEVER MIKE'S WAS ABLE TO SPEAK WITH PT OVER THE PHONE AND REASSURE PT. PT'S BP THIS AM 170/100 DURING THIS TIME OF AGITATION. AFTER PT WAS REASSURED HER FAMILY WAS OK AND THEY WOULD COME VISIT HER LATER IN THE DAY, PT'S BP DECREASED TO 166/92. HR REMAINS IN THE 90'S. PT REMAINS INT CHAIR WITH CHAIR ALARM ON. WILL CONTINUE TO MONITOR CLOSELY.
--- NOTE | 2016-11-11 08:01 | PDORTHOPN ---
Subjective Date DATE: 11/11/16 TIME: 07:55 Subjective Paty thinks she is in the [facility] ER this AM. She doesn't remember surgery or being at [facility]. Denies having much pain. Has questions regarding her . Objective Vital Signs Vital signs Vital Signs 11/10/16 11/10/16 11/11/16 11/11/16 20:35 21:46 00:47 04:31 Temp 98.6 98.3 Pulse 106 99 115 109 Resp 16 24 20 B/P 153/84 163/106 182/90 Pulse Ox 91 92 92 O2 Delivery Room Air Room Air Room Air 11/11/16 11/11/16 11/11/16 11/11/16 07:24 07:25 07:37 07:38 Temp 98.1 Pulse 105 97 97 Resp 20 B/P 183/107 179/100 166/92 Pulse Ox 92 O2 Delivery Room Air Height (Feet): 5 Height (Inches): 6.00 Weight (Kilograms): 48.200 General General Appearance: Confused, No Acute Distress Cardiovascular (Brief) Cardiac: FOUND: calf soft, nontender, peripheral pulses intact Integumentary (Brief) Integumentary Brief: FOUND dry, FOUND pink, FOUND warm Neurologic (Brief) Neurological Brief: FOUND: extremities w/o deficits, neuro intact Psychiatric (Brief) Psychiatric Brief: FOUND: no acute distress Laboratory Laboratory Laboratory Tests 11/10/16 05:59 Laboratory Tests 11/10/16 05:59 11/11/16 04:44 Assessment & Plan Problems: (1) Fracture of hip, right, closed Status: Acute Qualifiers: Encounter type: initial encounter Qualified Codes: S72.001A - Fracture of unspecified part of neck of right femur, initial encounter for closed fracture Assessment & Plan: Continue PT and OT. Weightbearing as tolerated. Continue medical management per the hospitalist team. Discharge when medically stable. F/U in 3 weeks. (2) Osteopenia Status: Chronic Assessment & Plan: Will check to see if Dr Alvarado did a DEXA. Will follow i 4 weeks as condition allows Hospital Course Summary Disclaimer The visit summary below is not to be considered part of the above Progress Note. Hospital Course 11/06 Admit patient to inpatient status under the care of Dr. Aviles Orthopedic consultation to Dr. Junior for further recommendations and treatment, at this point, we are planning for surgery tomorrow . 11/07 Did review admission laboratory studies WBC count is slightly up at 12.2 and hemoglobin is stable at 13.9. Patient was hypertensive and tachycardic initially. It is reported by her son that she did miss her morning beta diane. Patient given Lopressor 5 grams IV 1 now, will continue as needed every 6 hours for a rate over 120. Monitor on cardiac telemetry Did place order for speech therapy to eval for dysphasia. If more alert and approved by speech therapy, patient may have a regular diet. Patient nothing by mouth at midnight Postoperatively will utilize MiraLAX and senna to avoid constipation Ann catheter to dependent drainage Postoperatively will follow blood counts to monitor for postoperative anemia Had in-depth discussion with patient's son at the bedside. He does verbalize wishes for do not resuscitate and doesn't for size desire of patient and family is very conservative treatment. At time of discharge medical care will return to primary care provider. Dr. Thania Alvarado in [place] 11/07 OP Day - Right hip hemiarthroplasty by Dr Junior Tolerated Sx, but very hypoxic post op. Needing BiPAP to help improve saturations. Did senior research analyst about 1500 cc fluid during Sx. Post op CXR reporting infiltrate, but I suspect by have component of pulmonary edema. Restless post op. Ativan helping. Family members at bedside helping to calm pt. BiPAP for respiratory support, wean as able. Will start Rocephin and continue Clindamycin (given pre op and to receive 3 doses post op) for coverage of potential aspiration pneumonia. Lasix 20mg IV give post op for pulmonary edema. Continue 1/2 NS at 75cc/hr to help maintain hydration, monitoring volume status. Control agitation with Haldol and Ativan as needed. With pt's dementia, due suspect encephalopathy will be a challenge post op. Will change digoxin to IV as worry pt will not be able to take oral well. Continue SCD; Lovenox started post op and will need for 30 days after Sx. Restart ASA therapy used for stroke prevention - non chronically anticoagulated due to fall risk. Recheck BMP in am to monitor electrolytes and renal status. Repeat CBC in am due to leukocytosis and to monitor blood counts. BiPAP for respiratory support, wean as able. Will start Rocephin and continue Clindamycin (given pre op and to receive 3 doses post op) for coverage of potential aspiration pneumonia. Lasix 20mg IV give post op for pulmonary edema. Continue 1/2 NS at 75cc/hr to help maintain hydration, monitoring volume status. Control agitation with Haldol and Ativan as needed. With pt's dementia, due suspect encephalopathy will be a challenge post op. Will change digoxin to IV as worry pt will not be able to take oral well. Continue SCD; Lovenox started post op and will need for 30 days after Sx. Restart ASA therapy used for stroke prevention - non chronically anticoagulated due to fall risk. Recheck BMP in am to monitor electrolytes and renal status. Repeat CBC in am due to leukocytosis and to monitor blood counts. Case discussed with CM and family. Time spent with pt care 35 minutes. 11/08/2016 Impression and plan Right hip fracture status post right hemiarthroplasty on 11/07/2016 Acute hypoxic respiratory failure requiring BiPAP initially and now on 3 and half to 4 L per nasal cannula-incentive spirometer as able, titrate oxygen as able Pulmonary edema-resolved, continue to monitor Aspiration pneumonia right lower lobe with pneumonia versus atelectasis left lower lobe-day to Rocephin and clindamycin Acute kidney injury-stable with good urine output-monitor urine output, avoid nephrotoxins, recheck lab tomorrow A. fib with RVR-continue IV digoxin, add IV beta diane if needed Hypertension-fair control Dysphagia-unable to give by mouth meds at this time-speech therapy to reassess when the patient is more alert Dementia with encephalopathy-decrease Haldol to 1 mg IV every 6 hours when necessary, the patient was on Ativan as needed prior to admission and will continue this as needed. Give Tylenol for pain and hopefully be able to decrease morphine use Recent TIA-prior to admission-discussed with Dr. Junior, will give aspirin per rectum until she can take oral aspirin Acute blood loss anemia-current hemoglobin of 9.9 and was 14.1 yesterday Leukocytosis-improving Hypernatremia-resolved Hyperkalemia-resolved Discussed with the patient's nurse, the patient's son Maik, and with Dr. Junior. Greater than 1 hour of time spent seeing and evaluating the patient, reviewing the chart, and discussing with family and education consultant. 11/09/2016 Impression and plan Right hip fracture status post right hemiarthroplasty on 11/07/2016 Acute hypoxic respiratory failure requiring BiPAP initially and now down to 1.5 L, titrate oxygen as able Pulmonary edema-improving, will give Lasix 20 mg IV 1 now Aspiration pneumonia right lower lobe with pneumonia versus atelectasis left lower lobe-day 3 Rocephin and clindamycin Acute kidney injury-improved, urine output okay A. fib with RVR/sinus tachycardia-continue digoxin and sotalol Hypertension-fair control Dysphagia-better today, continue to encourage oral intake Dementia with encephalopathy-Haldol as needed, control pain with Tylenol first and narcotics if needed Recent TIA-prior to admission-restart oral aspirin 325 by mouth twice a day Acute blood loss anemia-improved today with hemoglobin 10.8 Leukocytosis-improving overall Hypernatremia-resolved Hyperkalemia-resolved Mild abdominal distention with tympany-possible mild ileus-give Dulcolax suppositories, if no better tomorrow consider KUB CBC and basic metabolic profile tomorrow. DC IV fluids. Lasix 20 mg IV 1 now. Continue supportive care. Greater than 35 minutes of time spent seeing and evaluating the patient today in determining care plan. JASON ROSARIO Nov 11, 2016 08:00
[2016-11-11] MEDS: POLYETHYL.GLYCOL 3350 PACKET 17gm PO SCH (08:18)
[2016-11-11] MEDS: ASPIRIN 325 MG TABLET PO SCH (08:28)
[2016-11-11] MEDS: CHOLECALCIFEROL 1,000 UNIT TABLET PO SCH (08:28)
[2016-11-11] MEDS: CALCIUM 600mg + VIT D 400 TABLET PO SCH (08:28)
[2016-11-11] MEDS: CALCIUM CARBONATE 500mg Chewable TAB PO SCH (08:29)
[2016-11-11] MEDS: DIGOXIN 125 MCG TABLET PO SCH (08:30)
[2016-11-11] MEDS: ISOSORBIDE MONONITRATE ER 30 MG TABLET PO SCH (08:30)
[2016-11-11] MEDS ORDERED: LORAZEPAM 0.5 MG TABLET PO PRN (08:30)
[2016-11-11] MEDS: SOTALOL 80 MG TABLET PO SCH (08:31)
[2016-11-11] MEDS: CEFTRIAXONE 1 G in NORMAL SALINE 100 ML IV SCH (08:40)
--- NOTE | 2016-11-11 11:08 | STDAILYN ---
ST Daily Note Date/Time DATE: 11/11/16 TIME: 11:01 Subjective Comment Pt was alert and cooperative. She was confused but pleasant. Orientations: Alert, Cooperative Chief Complaint: hip fx/dysphagia Pain: Yes (with movement , nursing aware) *Speech Therapy Impressions Pt was positioned upright in bed. She was given therapeutic trial of pudding, thin water and flory to determine diet upgrade. Pt took sips of thin water with supervision and no over s/s of aspiration. Schlusser and pudding tolerated well. Pt took small bites of flory cracker with mild oral delay but no significant residue. Diet upgraded to dysphagia soft with chopped meat and nectar thick liquids. Pt may have sips of thin water with supervision. ST Treatment Plan Frequency: five times per week Treatment Plan Duration: one week Plan of Care Comment: Upgrade diet to dysphagia/chopped with nectar thick liquids and thin water with supervision. Start Treatment 1: 09:10 Stop Treatment 1: 09:30 Treatment Duration : ST Treatment Charge: Swallow Treatment Minutes of Individual Therapy: 20 FOUZIA LONGORIA MS CCC-COMPANION CAREGIVER Nov 11, 2016 11:06
--- NOTE | 2016-11-11 11:43 | NUR ---
LINO HUYNH SPOKE WITH DARIEN AT [facility]. SHE IS MADE AWARE THAT DC IS POSSIBLE TODAY OR FRIDAY. SHE CAN BE REACHED AT P# [phone].
--- NOTE | 2016-11-11 12:19 | PDOCECFAO ---
Admission Orders Admission Orders Admit to: Detention Allergies: Coded Allergies: amoxicillin (Verified Adverse Reaction, Unknown, diarrhea , 11/06/16) calcitonin (Verified Adverse Reaction, Unknown, muscle cramps, 11/06/16) ferrous sulfate (Verified Adverse Reaction, Unknown, abdominal pain, ) raloxifene (Verified Adverse Reaction, Unknown, abdominal cramps, 11/06/16) Uncoded Allergies: Amiodarone HCL (Adverse Reaction, Unknown, incoordination, rash, 11/06/16) Vitamin K (Adverse Reaction, Unknown, pain, 11/06/16) Admitting Diagnosis R Hip Fx Admitting Physician Yonatan Sanabria MD Code Status Do Not Resuscitate Anticipated LOS: 30 days or less Rehab Potential: Fair Rehab Prognosis: Fair Diet: Mechanical Soft (Quarter inch chopped meat, thickened liquids, may have thin water with supervision) Wound/Incision Care: Keep dressing on wound until seen in follow-up with Dr. Junior May use Facility Protocol /SO: Yes May Have Flu Vaccine: Yes Evaluations/Treat: Speech, PT, OT Detention Certification I certify that SNF services are required to be given on an Inpatient basis because of the patients need for correction care on a continuing basis for the condition(s) for which he/she received inpatient hospital services prior to his/her transfer to the SNF. SNF inpatient care is necessary for the following reasons Wound Care/Assessment, Med Admininistration, Postop Assessment Care Cardiac or Respiratory Arrest In Event of Arrest: Do Not Start CPR Resident is Aware of Diagnosis: No Additional Orders: follow up with Thania Alvarado and YONATAN Loredo MD Nov 11, 2016 12:19
--- NOTE | 2016-11-11 12:20 | NUR ---
LINO CM IN TO VISIT WITH PT. SHE IS UNABLE TO PARTICIPATE IN DC PLANNING SECONDARY TO DEMENTIA. CM SPOKE WITH PT SON, ZONIA, VIA TELEPHONE. HE IS MADE AWARE THAT DC TO [facility] IS PLANNED FOR TODAY. HE IS AGREEABLE TO THIS PLAN. Addendum: 11/11/16 at 1221 by KARENA DOWD RN Amended: Links added.
[2016-11-11] MEDS ORDERED: ACET-2321 PO (12:35)
[2016-11-11] MEDS ORDERED: HYDR-4246 PO (12:35)
[2016-11-11] MEDS ORDERED: ENOX40DI SQ (12:36)
--- NOTE | 2016-11-11 12:50 | NUR ---
LINO DC TIME OUT IS COMPLETED WITH DARIEN, ISABEL. LINO LETS DARIEN AT [facility] KNOW THAT PT WILL NEED CLOTHING FOR TRANSPORT.
--- NOTE | 2016-11-11 14:55 | NUR ---
DISCHARGE PT DISCHARGED TO [facility] AT THIS TIME VIA THEIR DESIGNATED TRANSPORT STAFF. DISCHARGE INSTRUCTIONS SENT WITH PT TO [facility]. IVL DISCONTINUED. ARMBAND REMOVED. PERSONAL BELONGINGS RETURNED. CM SPOKE WITH FAMILY REGARDING DISCHARGE TO [facility]. PT VERBALIZED UNDERSTANDING OF RETURN TO [facility]. THIS RN CALLED REPORT TO ACCEPTING NURSE LEONARD FAN LPN PRIOR TO TRANSFER. PT TRANSPORTED TO THE FRONT ENTRANCE BY WHEELCHAIR AND ACCOMPANIED BY STAFF.
--- NOTE | 2016-11-11 15:40 | STDAILYN ---
Discharge Note Date/Time DATE: 11/11/16 TIME: 15:39 Discharge From: Inpatient ST Reason for Discharge: Transf. to Diff. Facility Discharge Summary: PATIENTS DIET UPGRADED TO SOFT/CHOPPED. RECOMMEND SERVICES PRN NEEDED. WILL RETURN TO PHYSICIAN. Recommended Follow-up: Return to Physician KEITH DESAI MS CCC-DESIGN ENGINEERING SPECIALIST Nov 11, 2016 15:40
--- NOTE | 2016-11-12 07:59 | DSPDOC ---
General Date Date DATE: 11/12/16 TIME: 07:45 Attending Physician Yonatan Sanabria MD Admitting Physician Yonatan Sanabria MD Consulting Physician Nash Craig MD Admitting Diagnosis Right hip fracture Discharge Diagnosis Right displaced subcapital femoral neck fracture Right hip hemiarthroplasty 11/07/2016 Acute hypoxic respiratory failure initially requiring BiPAP Pulmonary edema Aspiration pneumonia Acute kidney injury-improved A. fib with RVR/sinus tachycardia Hypertension Dysphagia Dementia with encephalopathy TIA prior to admission Acute blood loss anemia Leukocytosis Hypernatremia Hypokalemia Constipation Anxiety Gait instability Procedures Right hip hemiarthroplasty 11/07/[address] Jose Francisco Junior Laboratory Laboratory Tests Test 11/11/16 04:44 Turbidity < 20 (0-20) Sodium Level 141MEQ/L (134-144) Potassium Level 3.6MEQ/L (3.6-5) Chloride Level 103MEQ/L (98-107) Carbon Dioxide Level 30MEQ/L (22-30) Anion Gap 8MEQ/L (5-15) Blood Urea Nitrogen 31.0MG/DL (7-17) Creatinine 0.8MG/DL (0.7-1.2) Glomerular Filtration Rate Calc 68 BUN/Creatinine Ratio 39RATIO (6-26) Glucose Level 124MG/DL (65-110) Calculated Osmolality 279MOSM/KG (261-280) Calcium Level 9.1MG/DL (8.4-10.2) Icterus Index < 2 (0-7) Chemistry Specimen Hemolysis < 15 (0-25) Microbiology none Radiology Right hip x-ray 1. Acute basicervical/intertrochanteric fracture of the right femoral neck with mild angulation/foreshortening. 2. Postoperative changes of left total hip arthroplasty. 3. 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 Postsurgery pelvic x-ray Impression: Since recent previous study there is now been a hip replacement on the right side. Both the hip arthroplasties seem in satisfactory position. Chest x-ray 11/06/2016 shows no acute cardiopulmonary processes Chest x-ray 11/07/2016 shows significant worsening in the chest particularly involving the right lower lobes where there is now significant infiltrate present. Just mildly increased interstitial prominence seen on the left side. Mild cardiac prominence with permanent pacemaker in place. Chest x-ray 11/08/2016 shows cardiomegaly, or looseness of the left lower lobe which may be related to atelectasis or consolidation. Bilateral small pleural effusions. Added opacity at right lung base is again noted which may be related to a persistent infiltrate in a similar to mildly improved compared to the prior exam Chest x-ray 11/09/2016 shows mild to moderate pulmonary edema. Lower lobe airspace opacities could be due to the edema though superimposed pneumonia or aspiration is also possible. Overall the appearance is not significantly changed from most recent comparison that the edema has improved since November 07. History of Present Illness Patient is an 86-year-old female who resides at [facility] in [place], [place]. Unfortunately, patient fell in the bathroom and was found to have a right hip fracture. She was taken to [facility] where she was admitted under her primary care provider. Dr. Sara Alvarado. She was then transferred to [facility] today for further orthopedic evaluation and treatment. She is admitted under the hospitalist services for medical evaluation. Patient is seen on initial examination. She is sleeping and does not arouse. Entire history, present illness information is obtained from her son at the bedside. It is reported by patient's son that patient likely had a "TIA" last week. During this time. She was hypertensive 220/120. She experienced some right -sided facial drooping with right upper extremity weakness. However, the symptoms resolved on their own. We did discuss advanced directives and son, Don does emphasize patient is a do not resuscitate. They do not want any aggressive treatment done during her hospital stay. Admission labs reviewed, WBC count 12.2, hemoglobin 13.9, hematocrit 41, platelet count 166. Sodium is 145, potassium 4.5, BUN 27, creatinine 0.9, glucose 111. INR 1.05. Urinalysis is pending. Initial blood pressure on arrival was 200/118 and initial pulse was 117. At this time. Patient was significantly anxious. Now that she is resting her heart rate is 105. Son does indicate the patient did not receive her morning beta diane or other medications. Hospital Course 11/06 Admit patient to inpatient status under the care of Dr. Aviles Orthopedic consultation to Dr. Junior for further recommendations and treatment, at this point, we are planning for surgery tomorrow . 11/07 Did review admission laboratory studies WBC count is slightly up at 12.2 and hemoglobin is stable at 13.9. Patient was hypertensive and tachycardic initially. It is reported by her son that she did miss her morning beta diane. Patient given Lopressor 5 grams IV 1 now, will continue as needed every 6 hours for a rate over 120. Monitor on cardiac telemetry Did place order for speech therapy to eval for dysphasia. If more alert and approved by speech therapy, patient may have a regular diet. Patient nothing by mouth at midnight Postoperatively will utilize MiraLAX and senna to avoid constipation Ann catheter to dependent drainage Postoperatively will follow blood counts to monitor for postoperative anemia Had in-depth discussion with patient's son at the bedside. He does verbalize wishes for do not resuscitate and doesn't for size desire of patient and family is very conservative treatment. At time of discharge medical care will return to primary care provider. Dr. Sara Alvarado in [place] 11/07 OP Day - Right hip hemiarthroplasty by Dr Junior Tolerated Sx, but very hypoxic post op. Needing BiPAP to help improve saturations. Did electrician second about 1500 cc fluid during Sx. Post op CXR reporting infiltrate, but I suspect by have component of pulmonary edema. Restless post op. Ativan helping. Family members at bedside helping to calm pt. BiPAP for respiratory support, wean as able. Will start Rocephin and continue Clindamycin (given pre op and to receive 3 doses post op) for coverage of potential aspiration pneumonia. Lasix 20mg IV give post op for pulmonary edema. Continue 1/2 NS at 75cc/hr to help maintain hydration, monitoring volume status. Control agitation with Haldol and Ativan as needed. With pt's dementia, due suspect encephalopathy will be a challenge post op. Will change digoxin to IV as worry pt will not be able to take oral well. Continue SCD; Lovenox started post op and will need for 30 days after Sx. Restart ASA therapy used for stroke prevention - non chronically anticoagulated due to fall risk. Recheck BMP in am to monitor electrolytes and renal status. Repeat CBC in am due to leukocytosis and to monitor blood counts. BiPAP for respiratory support, wean as able. Will start Rocephin and continue Clindamycin (given pre op and to receive 3 doses post op) for coverage of potential aspiration pneumonia. Lasix 20mg IV give post op for pulmonary edema. Continue 1/2 NS at 75cc/hr to help maintain hydration, monitoring volume status. Control agitation with Haldol and Ativan as needed. With pt's dementia, due suspect encephalopathy will be a challenge post op. Will change digoxin to IV as worry pt will not be able to take oral well. Continue SCD; Lovenox started post op and will need for 30 days after Sx. Restart ASA therapy used for stroke prevention - non chronically anticoagulated due to fall risk. Recheck BMP in am to monitor electrolytes and renal status. Repeat CBC in am due to leukocytosis and to monitor blood counts. Case discussed with CM and family. Time spent with pt care 35 minutes. 11/08/2016 Impression and plan Right hip fracture status post right hemiarthroplasty on 11/07/2016 Acute hypoxic respiratory failure requiring BiPAP initially and now on 3 and half to 4 L per nasal cannula-incentive spirometer as able, titrate oxygen as able Pulmonary edema-resolved, continue to monitor Aspiration pneumonia right lower lobe with pneumonia versus atelectasis left lower lobe-day to Rocephin and clindamycin Acute kidney injury-stable with good urine output-monitor urine output, avoid nephrotoxins, recheck lab tomorrow A. fib with RVR-continue IV digoxin, add IV beta diane if needed Hypertension-fair control Dysphagia-unable to give by mouth meds at this time-speech therapy to reassess when the patient is more alert Dementia with encephalopathy-decrease Haldol to 1 mg IV every 6 hours when necessary, the patient was on Ativan as needed prior to admission and will continue this as needed. Give Tylenol for pain and hopefully be able to decrease morphine use Recent TIA-prior to admission-discussed with Dr. Junior, will give aspirin per rectum until she can take oral aspirin Acute blood loss anemia-current hemoglobin of 9.9 and was 14.1 yesterday Leukocytosis-improving Hypernatremia-resolved Hyperkalemia-resolved Discussed with the patient's nurse, the patient's son Maik, and with Dr. Junior. Greater than 1 hour of time spent seeing and evaluating the patient, reviewing the chart, and discussing with family and eligibility consultant. 11/09/2016 Impression and plan Right hip fracture status post right hemiarthroplasty on 11/07/2016 Acute hypoxic respiratory failure requiring BiPAP initially and now down to 1.5 L, titrate oxygen as able Pulmonary edema-improving, will give Lasix 20 mg IV 1 now Aspiration pneumonia right lower lobe with pneumonia versus atelectasis left lower lobe-day 3 Rocephin and clindamycin Acute kidney injury-improved, urine output okay A. fib with RVR/sinus tachycardia-continue digoxin and sotalol Hypertension-fair control Dysphagia-better today, continue to encourage oral intake Dementia with encephalopathy-Haldol as needed, control pain with Tylenol first and narcotics if needed Recent TIA-prior to admission-restart oral aspirin 325 by mouth twice a day Acute blood loss anemia-improved today with hemoglobin 10.8 Leukocytosis-improving overall Hypernatremia-resolved Hyperkalemia-resolved Mild abdominal distention with tympany-possible mild ileus-give Dulcolax suppositories, if no better tomorrow consider KUB CBC and basic metabolic profile tomorrow. DC IV fluids. Lasix 20 mg IV 1 now. Continue supportive care. Greater than 35 minutes of time spent seeing and evaluating the patient today in determining care plan. 11/10/2016 Impression and plan Right hip fracture status post right hemiarthroplasty on 11/07/2016 Acute hypoxic respiratory failure requiring BiPAP initially and now down to 1.5 L, titrate oxygen as able Pulmonary edema-improved, Aspiration pneumonia right lower lobe with pneumonia versus atelectasis left lower lobe-day 4 Rocephin and clindamycin Acute kidney injury-improved, urine output good, creatinine stable A. fib with RVR/sinus tachycardia-continue digoxin and sotalol Hypertension-fair control Dysphagia-improving, reevaluate with speech therapy tomorrow Dementia with encephalopathy-encephalopathy is improving Recent TIA-prior to admission-continue oral aspirin 325 by mouth twice a day Acute blood loss anemia-stable Leukocytosis-improving overall Hypernatremia-resolved Hyperkalemia-resolved Constipation-resolved, continue MiraLAX daily CBC and basic metabolic profile tomorrow. Speech therapy to reevaluate swallow tomorrow PTT increased strengthening, patient will likely be ready for discharge in the next 1-2 days SANDRA Ann Discussed with patient's son Greater than 35 minutes of time spent seeing and evaluating the patient today in determining care plan. 11/11/2016-Dr. Sanabria On the day of discharge, the patient was doing quite well. She was oxygenating well on room air. She had been eating and drinking well. Her Ann catheter had been discontinued the prior day and she was voiding without difficulties. She finished 5 days of IV antibiotics with Rocephin and clindamycin for possible aspiration pneumonia she was not having any cough and lungs were clear. The patient has chronic dementia and appeared to be at baseline. Speech therapy saw the patient and advanced her diet to dysphasia with quarter inch chopped meats and nectar thick liquids. She was able to have thin water with supervision. On exam she is alert and I did observe her up walking in the halls with her walker with her nurse, and she was doing quite well. Once the patient was back in her room I did an examination. Chest is clear to auscultation. Cardiovascular reveals a borderline tachycardic rate with irregular rhythm. Abdomen is soft and nontender. Extremities are free of edema. Overall the patient appears to be doing quite well. She appears stable for dismissal back to her detention with intermediate. She has completed 5 days of treatment for possible aspiration pneumonia. Greater than 35 minutes of time was spent seeing and evaluating the patient on 11/11/2016. Problems: (1) Hip fracture, right Status: Acute Assessment & Plan: Right displaced subcapital femoral neck fracture. 11/07: Right hip hemiarthroplasty. (2) Acute respiratory failure Status: Acute Assessment & Plan: BiPAP requiring post op - Pulm edema and likely aspiration pneumonia. (3) Pulmonary edema Status: Acute (4) Aspiration pneumonia Status: Acute Assessment & Plan: Suspect aspiration (5) Hyperkalemia Onset Date: ~ 10/2016 Status: Acute Assessment & Plan: Not POA (6) REJI (acute kidney injury) Status: Acute (7) Congestive heart failure Status: Chronic (8) Atrial fibrillation Status: Chronic (9) Hypertension Status: Chronic (10) Constipation Status: Chronic (11) Hypothyroidism Status: Chronic (12) Dementia Status: Chronic (13) Anxiety Status: Chronic (14) Raynauds syndrome Status: Chronic (15) Spinal stenosis Status: Chronic (16) Kyphosis Status: Chronic (17) Scoliosis Status: Chronic (18) Pacemaker Status: Chronic (19) Anemia Status: Chronic (20) Hx-TIA (transient ischemic attack) Status: Chronic (21) H/O: compression fracture of spine Status: Resolved Assessment & Plan: Chronic back pain secondary. (22) Gait instability Status: Chronic (23) Hypernatremia Status: Resolved Assessment & Plan: POA Code Status Do Not Resuscitate Home Meds Active Scripts Enoxaparin Sodium (Lovenox) 40 Mg/0.4 Ml Inj, 40 MG SQ Q24H for 25 Days Prov:YONATAN SANABRIA MD 11/11/16 Hydrocodone/Acetaminophen ([place] 5-325 Tablet) 5-325 Tablet, 0.5-2 TAB PO Q6H Y for PAIN, #15 TAB Prov:YONATAN SANABRIA MD 11/11/16 Acetaminophen (Tylenol) 325 Mg Tablet, 325-650 MG PO Q5H Y for DISCOMFORT, #30 TAB Prov:YONATAN SANABRIA MD 11/11/16 Reported Medications Menthol/Colloidal Oatmeal (Eucerin Calm Itch-Relief Lot) 200 Ml Lotion, 1 ML TOP Y for NEEDED 11/06/16 Lisinopril (Prinivil) 20 Mg Tablet, 20 MG PO PRN Y for HYPERTENSION, TAB 11/06/16 Sotalol HCl (Sotalol) 80 Mg Tablet, 0.5 TAB PO DAILY Y for NEEDED, #60 TAB 5 Refills 11/06/16 Aspirin (Aspirin) 325 Mg Tablet, 1 TAB PO BID, #30 TAB 3 Refills 11/06/16 Lorazepam (Lorazepam) 0.5 Mg Tablet, 0.5 MG PO Q4HPRN Y for ANXIETY, TAB 11/06/16 Bisacodyl (Dulcolax) 10 Mg Supp.rect, 1 SUPP RECTALLY PRN Y for STOOL SOFTENING 11/06/16 Mirtazapine (Remeron) 30 Mg Tablet, 30 MG PO HS, TAB Take 1 tablet, by mouth, one time a day (at bedtime). 11/06/16 Omeprazole Magnesium (Prilosec Otc) 20 Mg Tablet.dr, 1 TAB PO HS for ACID REFLUX , TAB 11/06/16 Melatonin (Melatonin) 3 Mg Tablet, 1 TAB PO HS, #30 TAB 2 Refills 11/06/16 Melatonin (Melatonin) 3 Mg Tablet, 1 TAB PO HS, #30 TAB 2 Refills 11/06/16 Isosorbide Mononitrate (Isosorbide Mononitrate ER) 30 Mg Tab.er.24h, 1 TAB PO DAILY, TAB 11/06/16 Polyethylene Glycol 3350 (Miralax) 17 Gm Powd.pack, 1 PACKET PO DAILY, #2 PACKET 1 Refill 11/06/16 Calcium Carbonate/Vitamin D3 (Caltrate 600 + D Tablet) 1 Each Tablet, 1 TAB PO DAILY 11/06/16 Calcium Carbonate (Tums) 200 Mg Tab.chew, 1 TAB PO BID 11/06/16 Levothyroxine Sodium (Synthroid) 25 Mcg Tablet, 1 TAB PO ACB, TAB BEST IF TAKEN BEFORE BREAKFAST 11/06/16 Digoxin (Digox) 125 Mcg Tablet, 1 TAB PO DAILY, TAB 11/06/16 Cholecalciferol (Vitamin D3) (Vitamin D-3) 2,000 Unit Tablet, 1000 UNIT PO DAILY 11/06/16 Sennosides/Docusate Sodium (Senokot-S Tablet) 1 Each Tablet, 1 TAB PO BID, TAB Take 1 tablet, by mouth, 2 times a day. 11/06/16 Sotalol HCl (Sotalol) 80 Mg Tablet, 40 MG PO TID, TAB Take 1 tablet, by mouth, 3 times a day (before meals). 11/06/16 Discontinued Reported Medications Hydrocodone/Acetaminophen ([place] 5-325 Tablet) 5-325 Tablet, 0.5-1 TAB PO TID PRN, TAB 11/06/16 Diphenhydramine HCl (Benadryl) 25 Mg Capsule, 1 CAP PO HS, #30 CAP 1 Refill 11/06/16 Acetaminophen (Tylenol) 325 Mg Tablet, 2 TAB PO HS Y for PAIN/FEVER, TAB 11/06/16 Trazodone HCl (Trazodone HCl) 50 Mg Tablet, 50 MG PO WS, TAB Take 1 tablet, by mouth, one time a day (at BEDTIME). 11/06/16 Aspirin (Aspirin) 325 Mg Tablet, 1 TAB PO DAILY 11/06/16 Ibuprofen (Ibuprofen) 200 Mg Tablet, 1 TAB PO NOON, TAB 11/06/16 Face to Face Encounter I met with patient on the day of dismissal and discussed follow up appointments , medications, and safety plan. Discharge Disposition Transfer back to detention with intermediate in stable condition Copies To 1: NASH COSTA MD; SARA ALVARADO MD; PING JUNIOR MD, STEPHANIE L MD Nov 12, 2016 07:48
== END 2016-11-11 14:55 | DRG 469 ==
LOC: SRG 11:20 → UNDOADMIN 11:47
PROVIDERS: ADMIT Hospitalist; ATTEND Internal Medicine
PROC: 0SRR0J9 Replacement of Right Hip Joint, Femoral Surface with Synthetic Substitute, Cemented, Open Approach (ICD-10-PCS; principal; 2016-11-07 09:27)
DX: S72.041A Displaced fracture of base of neck of right femur, initial encounter for closed fracture (principal); J81.0 Acute pulmonary edema; J69.0 Pneumonitis due to inhalation of food and vomit; J96.01 Acute respiratory failure with hypoxia; G93.40 Encephalopathy, unspecified; N17.9 Acute kidney failure, unspecified; D62 Acute posthemorrhagic anemia; E87.0 Hyperosmolality and hypernatremia; I11.0 Hypertensive heart disease with heart failure; I50.9 Heart failure, unspecified; Z66 Do not resuscitate; R26.89 Other abnormalities of gait and mobility; E87.5 Hyperkalemia; R13.10 Dysphagia, unspecified; I48.91 Unspecified atrial fibrillation; M40.209 Unspecified kyphosis, site unspecified; E03.9 Hypothyroidism, unspecified; M48.00 Spinal stenosis, site unspecified; K59.00 Constipation, unspecified; K21.9 Gastro-esophageal reflux disease without esophagitis; E78.00 Pure hypercholesterolemia, unspecified; M81.0 Age-related osteoporosis without current pathological fracture; M35.3 Polymyalgia rheumatica; M41.9 Scoliosis, unspecified; I73.00 Raynaud's syndrome without gangrene; F41.9 Anxiety disorder, unspecified; F03.90 Unspecified dementia, unspecified severity, without behavioral disturbance, psychotic disturbance, mood disturbance, and anxiety; Z95.0 Presence of cardiac pacemaker; Z79.82 Long term (current) use of aspirin; Z79.899 Other long term (current) drug therapy; W18.30XA Fall on same level, unspecified, initial encounter; Y92.121 Bathroom in nursing home as the place of occurrence of the external cause; Y99.8 Other external cause status
CPT/HCPCS: 36415; 80048; 80053; 80069; 81001; 82306; 83735; 85007; 85025; 85027; 85610; 86850; 86900; 86901; 93005; 94002